=== PATIENT | female | born 1955 | race Caucasian/White ===

== ENCOUNTER 2023-01-17 07:15 | Outpatient (OUT) | payer BC, MEDICARE, SELFPAY ==
--- NOTE | 2023-01-17 07:29 | MM_ITS ---
Patient: DEV BACON Exam Date: 01/17/2023 : 1955 Gender:F Ordering : Non-Staff Physician Admission #: [id number] Family : Order #: [id number] CLICK HERE TO VIEW EXAM RADIOLOGY REPORT PROCEDURE: MM TOMOSYNTHESIS SCREENING BI COMPARISON: MG MAMM SCREEN MOOKIE W CAD, 08/31/2011. INDICATIONS: Screening Calculator Name NCI Breast Cancer Risk Assessment Tool 5 Year Breast Cancer Risk 1.60% Lifetime Breast Cancer Risk 6.20% Personal Breast Cancer No Personal Ovarian Cancer No Treatments None Family Cancers None LOCATION: [facility] BREAST COMPOSITION: Heterogeneously dense,which may obscure small masses. FINDINGS: DIAGNOSTIC CATEGORY 1--NEGATIVE. RIGHT BREAST: No significant suspicious finding. No significant change has occurred. LEFT BREAST: No significant suspicious finding. No significant change has occurred. RECOMMENDATIONS: ROUTINE MAMMOGRAM AND CLINICAL EVALUATION IN 12 MONTHS. PLEASE NOTE: A NORMAL MAMMOGRAM DOES NOT EXCLUDE THE POSSIBILITY OF BREAST CANCER. A CLINICALLY SUSPICIOUS PALPABLE LUMP SHOULD BE BIOPSIED. Dictated by: Dwight Pollard M.D. on 01/18/2023 at 14:59 Approved by: Dwight Pollard M.D. on 01/18/2023 at 15:02
--- NOTE | 2023-01-17 07:55 | XR_ITS ---
The [address] [address] Patient Name: DEV BACON MRN: [id number] date: 1955 Sex: F Assigned Patient Location: [facility] Current Patient Location: [facility] Accession/Order Number: [id number] Exam Date: 01/17/2023 07:45 Report Date: 01/17/2023 08:10 At the request of: NON-STAFF PHYSICIAN Procedure: XR DEXA axial skeleton EXAMINATION: XR DEXA axial skeleton HISTORY: Postmenopausal Z78.0 COMPARISON: No relevant comparison available. TECHNIQUE: Dual-energy X-ray absorptiometry (DXA) was performed. FINDINGS: SPINE ANALYSIS: Average bone mineral density is 1.161 g/cm2. T-score (standard deviation relative to young adult mean): -0.2 . HIP ANALYSIS: Lowest bone mineral density is within the right femoral neck, 0.798 g/cm2. T-score (standard deviation relative to young adult mean): -1.7 . XR/XR DEXA axial skeleton IMPRESSION: World Jesse Organization Classification: Osteopenia - Moderate Fracture Risk Electronically authenticated by: YAMIL GRUBBS Date: 01/17/2023 08:10
== END 2023-01-17 07:16 | disposition home or self-care (01) ==
LOC: MAMMO 07:24
DX: Z78.0 Asymptomatic menopausal state (principal); Z12.31 Encounter for screening mammogram for malignant neoplasm of breast; M85.851 Other specified disorders of bone density and structure, right thigh
CPT/HCPCS: 77063; 77067; 77080

== ENCOUNTER 2023-09-15 21:02 | Emergency (ER) | payer BC, MEDICARE, SELFPAY ==
[2023-09-15 21:04] VITALS: BP 121/83; PULSE 96; TEMP 36.7; O2SAT 98; BMI 34.3
--- NOTE | 2023-09-15 21:21 | ED_ITS ---
HPI - Nausea/Vomiting/Diarrhea General Chief complaint: Nausea/Vomiting/Diarrhea Stated complaint: vomiting Time Seen by Provider: 09/15/23 21:18 Source: patient Mode of arrival: walk-in History of Present Illness HPI Narrative: 68-year-old female presents for nausea vomiting and diarrhea which started this afternoon. No hematemesis or hematochezia. She has not had any known ill contacts. She has not had a fever. No complaints of cough or shortness of breath or chest pain. Related Data Home Medications ?Medication ?Instructions ?Recorded ?Confirmed albuterol sulfate 2.5 mg/3 mL 2.5 mg continuous nebulization Q6H 09/15/23 09/15/23 (0.083 %) solution for nebulization PRN shortness of breath or wheezing albuterol sulfate 90 mcg/actuation 1 puff inhalation Q6H PRN 09/15/23 09/15/23 aerosol inhaler shortness of breath or wheezing amlodipine 10 mg tablet 10 mg PO DAILY 09/15/23 09/15/23 ezetimibe 10 mg tablet 10 mg PO QPM 09/15/23 09/15/23 levothyroxine 88 mcg capsule 88 mcg PO QAM 09/15/23 09/15/23 lisinopril 40 mg tablet 40 mg PO DAILY 09/15/23 09/15/23 sertraline 100 mg tablet 100 mg PO DAILY 09/15/23 09/15/23 topiramate 50 mg tablet 50 mg PO DAILY 09/15/23 09/15/23 Previous Rx's ?Medication ?Instructions ?Recorded ondansetron 4 mg disintegrating 4 mg PO Q6H PRN nausea and 09/15/23 tablet vomiting #20 tabs Allergies Allergy/AdvReac Type Severity Reaction Status Date / Time amoxicillin Allergy Severe Verified 09/15/23 21:12 cephalexin [From Keflex] Allergy Severe Verified 09/15/23 21:12 diazepam [From Valium] Allergy Severe Verified 09/15/23 21:12 ibuprofen Allergy Severe Verified 09/15/23 21:12 levothyroxine Allergy Severe Verified 09/15/23 21:12 Penicillins Allergy Severe Verified 09/15/23 21:12 Review of Systems ROS Narrative A ten point review of systems is negative except as noted above. Exam Narrative Exam Narrative: Nurses note and vital signs reviewed and patient is not hypoxic. General: The patient appears uncomfortable and is in no respiratory distress. Skin: Warm, dry, no pallor noted. There is no rash noted. Head: Normocephalic, atraumatic Eye: Normal conjunctiva, no drainage Ears, Nose, Mouth, and Throat: oral mucosa is moist. Nares patent. Cardiovascular: Regular Rate and Rhythm Respiratory: Patient is in no distress, no accessory muscle use, lungs are clear to auscultation, no wheezing, rales or rhonchi Back: non-tender GI: Soft and nontender nondistended. No masses. Musculoskeletal: The patient has no evidence of calf tenderness, no pitting edema, symmetrical pulses noted bilaterally Neurological: A&O, normal speech Psychiatric: Cooperative Constitutional Vital Signs, click to edit/add: Last Vital Signs Temp 98.0 F 09/15/23 21:04 Pulse 96 H 09/15/23 21:04 Resp 18 09/15/23 21:04 BP 121/83 09/15/23 21:04 Pulse Ox 98 09/15/23 21:04 Course Vital Signs Vital signs: Vital Signs Temperature 98.0 F 09/15/23 21:04 Pulse Rate 96 H 09/15/23 21:04 Respiratory Rate 18 09/15/23 21:04 Blood Pressure 121/83 09/15/23 21:04 Pulse Oximetry 98 09/15/23 21:04 Temperature 98.0 F 09/15/23 21:04 Pulse Rate 96 H 09/15/23 21:04 Respiratory Rate 18 09/15/23 21:04 Blood Pressure 121/83 09/15/23 21:04 Pulse Oximetry 98 09/15/23 21:04 MDM - Nausea/Vomiting/Diarrhea MDM Narrative Medical decision making narrative: The patient is feeling improved with IV fluids and Zofran. Repeat abdominal examination at 11:15 PM shows no tenderness. She is tolerating p.o. liquids and is able to be discharged home. Treatment diagnosis and follow-up were discussed with the patient. Differential Diagnosis Differential diagnosis: Likely food poisoning, gastroenteritis and dehydration Lab Data Attestation: I reviewed the patient's lab results. Labs: Lab Results 09/15/23 Range/Units 21:30 WBC 17.4 H (4.0-11.0) 10^3/uL RBC 4.89 (4.20-5.40) 10^6/uL Hgb 15.5 (12.0-16.0) g/dL Hct 44.8 (36.0-48.0) % MCV 91.6 (81.0-99.0) fL MCH 31.7 (26.7-34.0) pg MCHC 34.6 (29.9-35.2) g/dL RDW 13.4 (11.0-15.0) % Plt Count 312 (150-450) 10^3/uL MPV 9.2 L (9.5-13.5) fL Seg Neuts % (Manual) 91.0 Lymphocytes % (Manual) 3.0 L (20.5-60.0) % Atypical Lymphs % (Man) 1.0 % Monocytes % (Manual) 4.0 (1.7-12.0) % Eosinophils % (Manual) 1.0 (0.9-7.0) % Basophils % (Manual) 0.0 L (0.2-2.0) % Neutrophils # (Manual) 15.83 H (1.4-6.5) 10^3/uL Lymphocytes # (Manual) 0.52 L (1.20-3.80) 10^3/uL Abs Atypical Lymphs Man 0.17 Monocytes # (Manual) 0.69 (0.30-0.80) 10^3/uL Eosinophils # (Manual) 0.17 (0.00-0.70) 10^3/uL Basophils # (Manual) 0.00 (0.00-0.10) 10^3/uL Sodium 141 (136-145) mmol/L Potassium 3.7 (3.5-5.1) mmol/L Chloride 105 (98-107) mmol/L Carbon Dioxide 24.1 (21.0-32.0) mmol/L Anion Gap 15.6 BUN 13.0 (7.0-18.0) mg/dL Creatinine 0.89 (0.55-1.02) mg/dL Est GFR ( Amer) >60 (>=60) Est GFR (Non-Af Amer) >60 (>=60) BUN/Creatinine Ratio 14.6 Glucose 180 H (74-106) mg/dL Calcium 9.0 (8.5-10.1) mg/dL Discharge Plan Discharge Stand Alone Forms: Portal Instructions Chief Complaint: Nausea/Vomiting/Diarrhea Clinical Impression: Nausea, vomiting, and diarrhea Patient Disposition: Home, Self-Care Time of Disposition Decision: 23:18 Condition: Good Mode of Transportation: Private Vehicle Prescriptions / Home Meds: New ondansetron 4 mg tablet,disintegrating 4 mg PO Q6H PRN (Reason: nausea and vomiting) Qty: 20 0RF No Action albuterol sulfate 2.5 mg /3 mL (0.083 %) solution for nebulization 2.5 mg continuous nebulization Q6H PRN (Reason: shortness of breath or wheezing) albuterol sulfate 90 mcg/actuation HFA aerosol inhaler 1 puff INHALATION Q6H PRN (Reason: shortness of breath or wheezing) amlodipine 10 mg tablet 10 mg PO DAILY ezetimibe 10 mg tablet 10 mg PO QPM levothyroxine 88 mcg capsule 88 mcg PO QAM lisinopril 40 mg tablet 40 mg PO DAILY sertraline 100 mg tablet 100 mg PO DAILY topiramate 50 mg tablet 50 mg PO DAILY Print Language: Spanish Instructions: Acute Nausea and Vomiting (ED), Acute Diarrhea (ED) Referrals: Erik Hills [Primary Care Provider] - 1 week
[2023-09-15] MEDS: 0.9 % SODIUM CHLORIDE 1,000 ML 1000 ML IV (21:37)
[2023-09-15] MEDS: ONDANSETRON PF 4 MG/2 ML VIAL IV ×2 (21:37→23:28)
[2023-09-15 21:38] LABS: Hematocrit 44.8 % (36.0-48.0); Hemoglobin 15.5 g/dL (12.0-16.0); Mean Corpuscular HGB Conc 34.6 g/dL (29.9-35.2); Mean Corpuscular Hemoglobin 31.7 pg (26.7-34.0); Mean Corpuscular Volume 91.6 fL (81.0-99.0); Mean Platelet Volume 9.2 fL (9.5-13.5); Platelet Count 312 10^3/uL (150-450); Red Blood Count 4.89 10^6/uL (4.20-5.40); Red Cell Distribution Width 13.4 % (11.0-15.0); White Blood Count 17.4 10^3/uL (4.0-11.0)
[2023-09-15 21:47] LABS: Anion Gap 15.6; BUN Creatinine Ratio 14.6; Carbon Dioxide 24.1 mmol/L (21.0-32.0); Chloride 105 mmol/L (98-107); Estimated GFR (African America >60 (>=60); Estimated GFR (Non-African Ame >60 (>=60); Glucose 180 mg/dL (74-106); Potassium 3.7 mmol/L (3.5-5.1); Sodium 141 mmol/L (136-145)
[2023-09-15 22:03] LABS: Atypical Lymphocytes Abs Man 0.17; Eosinophils Absolute Manual 0.17 10^3/uL (0.00-0.70); Lymphocytes Absolute Manual 0.52 10^3/uL (1.20-3.80); Monocytes Absolute Manual 0.69 10^3/uL (0.30-0.80); Segmented Neut Absolute Manual 15.83 10^3/uL (1.4-6.5)
[2023-09-15 23:33] VITALS: BP 136/78; PULSE 78; TEMP 36.7; O2SAT 95
== END 2023-09-15 23:41 | disposition home or self-care (01) ==
PROVIDERS: Emergency Provider Emergency Medicine
DX: R11.2 Nausea with vomiting, unspecified (principal); R19.7 Diarrhea, unspecified; Z79.899 Other long term (current) drug therapy; Z79.890 Hormone replacement therapy
CPT/HCPCS: 36415; 80048; 85007; 85027; 96361; 96374; 96376; 99284

== ENCOUNTER 2023-09-16 16:56 | Emergency (ER) | payer BC, MEDICARE, SELFPAY ==
[2023-09-16 17:06] VITALS: BP 169/86; PULSE 71; TEMP 37.1; O2SAT 97; BMI 34.3
== END 2023-09-16 18:01 | disposition left against medical advice (07) ==
LOC: ER 17:04
PROVIDERS: Emergency Provider Emergency Medicine
DX: Z53.21 Procedure and treatment not carried out due to patient leaving prior to being seen by health care provider (principal)
CPT/HCPCS: 80053; 83605; 83690; 99284

== ENCOUNTER 2024-01-26 11:51 | Emergency (ER) | payer BC, MEDICARE, SELFPAY ==
[2024-01-26 11:54] VITALS: BP 163/81; PULSE 71; TEMP 36.6; O2SAT 95; BMI 34.0
--- NOTE | 2024-01-26 12:09 | CT_ITS ---
The [address] [address] Patient Name: DEV BACON MRN: [id number] date: 1955 Sex: F Assigned Patient Location: ER Current Patient Location: Accession/Order Number: [id number] Exam Date: 01/26/2024 12:35 Report Date: 01/26/2024 14:07 At the request of: ARLYN MENENDEZ Procedure: CT abdomen pelvis wo con EXAM: CT abdomen pelvis wo con , 01/26/2024 HISTORY: rt flank pain COMPARISON: None. TECHNIQUE: Noncontrast CT scan of the abdomen and pelvis was performed. Coronal and sagittal reconstructions were performed. Dose reduction techniques were achieved by using automated exposure control and/or adjustment of mA and/or kV according to patient size and/or use of iterative reconstruction technique. FINDINGS: Large calculus seen in the right renal pelvis measuring 1.8 x 1.6 cm. No significant dilatation of the right kidney. Another nonobstructing calculus in the mid right kidney measuring 7 mm. The left kidney and ureter demonstrate no stone or dilatation. Urinary bladder is nondistended. Small amount of air bubbles in the urinary bladder could be due to recent catheterization or procedure. Recommend clinical correlation. The liver, spleen, pancreas and both adrenal glands are unremarkable. Postcholecystectomy. No biliary dilatation. No enlarged lymph node in the abdomen, retroperitoneum or the pelvis. Mild atherosclerotic calcification of the abdominal aorta. Unremarkable IVC. Small ventral upper abdominal wall hernia containing predominantly fatty tissue. No bowel loop dilatation or bowel wall thickening. Mild sigmoid diverticulosis without diverticulitis. Post appendectomy. No free fluid in the peritoneal cavity. The uterus and adnexa are unremarkable. Small left inguinal hernia containing fatty tissue. The bone windows demonstrate no acute osseous findings. Scans through the lung bases show mild dependent atelectasis. CT/CT abdomen pelvis wo con IMPRESSION: 1. Large calculus in the right renal pelvis measuring 1.8 x 1.6 cm. 2. Postcholecystectomy and appendix. 3. Sigmoid diverticulosis without diverticulitis. Electronically authenticated by: MASSIMO BAPTISTE Date: 01/26/2024 14:07
--- NOTE | 2024-01-26 12:15 | ECG_ITS ---
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
[2024-01-26] MEDS: 0.9 % SODIUM CHLORIDE 1,000 ML 1000 ML IV (12:23)
[2024-01-26 12:38] LABS: Basophils Absolute Auto 0.1 10^3/uL (0.0-0.1); Basophils Percent Auto 0.5 % (0.2-2.0); Eosinophils Absolute Auto 0.4 10^3/uL (0.0-0.7); Eosinophils Percent Auto 4.6 % (0.9-7.0); Hematocrit 44.6 % (36.0-48.0); Hemoglobin 15.3 g/dL (12.0-16.0); Immature Granulocytes Abs Auto 0.04 10^3/uL (0.00-0.03); Immature Granulocytes Pct Auto 0.4 % (0.0-0.5); Lymphocytes Absolute Auto 2.8 10^3/uL (1.2-3.8); Lymphocytes Percent Auto 28.8 % (20.5-60.0); Mean Corpuscular HGB Conc 34.3 g/dL (29.9-35.2); Mean Corpuscular Hemoglobin 31.4 pg (26.7-34.0); Mean Corpuscular Volume 91.6 fL (81.0-99.0); Mean Platelet Volume 9.5 fL (9.5-13.5); Monocytes Absolute Auto 0.7 10^3/uL (0.3-0.8); Monocytes Percent Auto 7.1 % (1.7-12.0); Neutrophils Absolute Auto 5.6 10^3/uL (1.4-6.5); Neutrophils Percent Auto 58.6 % (43.0-75.0); Platelet Count 307 10^3/uL (150-450); Red Blood Count 4.87 10^6/uL (4.20-5.40); Red Cell Distribution Width 13.4 % (11.0-15.0); White Blood Count 9.6 10^3/uL (4.0-11.0)
[2024-01-26 12:38] LABS: Bilirubin Urine NEGATIVE (NEGATIVE); Blood Urine SMALL (NEGATIVE); Clarity Urine CLEAR (CLEAR); Color Urine LT. YELLOW (YELLOW); Glucose Urine UA NEGATIVE (NEGATIVE); Ketones Urine NEGATIVE (NEGATIVE); Leukocyte Esterase Urine MODERATE (NEGATIVE); Nitrite Urine POSITIVE (NEGATIVE); Protein Urine NEGATIVE (NEG/TRACE); Specific Gravity Urine 1.015 (1.005-1.025); Urobilinogen Urine 0.2 EU/dL (0.2-1.0); pH Urine 6.5 (5.0-9.0)
[2024-01-26 12:45] LABS: Urine Microscopic Indicated YES
[2024-01-26 12:49] LABS: Bacteria Urine LARGE #/HPF (NONE SEEN); Mucus Urine TRACE (NONE SEEN); Squamous Epithelial Cell Urine MODERATE #/LPF (NONE/RARE)
[2024-01-26 12:50] LABS: Cast Seen? NONE SEEN #/LPF (NONE SEEN); Crystals Seen? None Seen #/HPF (None Seen); Urine Culture Indicated YES
[2024-01-26 12:52] LABS: Alanine Aminotransferase 30 U/L (14-59); Albumin Globulin Ratio 1.1; Albumin Level 3.8 g/dL (3.4-5.0); Alkaline Phosphatase 79 U/L (46-116); Anion Gap 11.3; Aspartate Amino Transferase 17 U/L (15-37); BUN Creatinine Ratio 22.4; Bilirubin Total 0.6 mg/dL (0.2-1.0); Calcium 9.2 mg/dL (8.5-10.1); Carbon Dioxide 26.3 mmol/L (21.0-32.0); Chloride 103 mmol/L (98-107); Estimated GFR (African America >60 (>=60); Estimated GFR (Non-African Ame >60 (>=60); Globulin 3.5 g/dL; Glucose 129 mg/dL (74-106); Potassium 3.6 mmol/L (3.5-5.1); Sodium 137 mmol/L (136-145); Total Protein 7.3 g/dL (6.4-8.2)
[2024-01-26 12:54] LABS: Troponin I High Sensitivity 4.3 pg/mL (4.0-51.3)
--- NOTE | 2024-01-26 13:33 | ED.BACK1 ---
HPI HPI - Back Pain/Injury General Chief Complaint: Back Pain/Injury Stated Complaint: RIGHT FLANK PAIN, TENDERNESS Time Seen by Provider: 01/26/24 12:08 Source: patient Mode of arrival: walk-in Limitations: no limitations History of Present Illness HPI Narrative: The patient mentioned that she does have a history of kidney stone but she started having this right flank pain almost a week ago after she was given a hug from a friend, the patient noticed that she does see some hematuria sometimes but she have this constant right flank pain associated with nausea, no fever no chills no coughing no difficulty breathing and no chest pain The patient also denies any other complaints of radiation of the pain or any severe pain as she mentioned that her pain is tolerated and she does not want to take anything for it Related Data Home Medications ?Medication ?Instructions ?Recorded ?Confirmed albuterol sulfate 2.5 mg/3 mL 2.5 mg continuous nebulization Q6H 09/15/23 09/15/23 (0.083 %) solution for nebulization PRN shortness of breath or wheezing albuterol sulfate 90 mcg/actuation 1 puff inhalation Q6H PRN 09/15/23 09/15/23 aerosol inhaler shortness of breath or wheezing amlodipine 10 mg tablet 10 mg PO DAILY 09/15/23 09/15/23 ezetimibe 10 mg tablet 10 mg PO QPM 09/15/23 09/15/23 levothyroxine 88 mcg capsule 88 mcg PO QAM 09/15/23 09/15/23 lisinopril 40 mg tablet 40 mg PO DAILY 09/15/23 09/15/23 sertraline 100 mg tablet 100 mg PO DAILY 09/15/23 09/15/23 topiramate 50 mg tablet 50 mg PO DAILY 09/15/23 09/15/23 Previous Rx's ?Medication ?Instructions ?Recorded ondansetron 4 mg disintegrating 4 mg PO Q6H PRN nausea and 09/15/23 tablet vomiting #20 tabs ciprofloxacin HCl 500 mg tablet 500 mg PO BID #14 tabs 01/26/24 Allergies Allergy/AdvReac Type Severity Reaction Status Date / Time amoxicillin Allergy Severe Rash Verified 01/26/24 12:00 cephalexin [From Keflex] Allergy Severe Rash Verified 01/26/24 12:00 ibuprofen Allergy Severe Rash Verified 01/26/24 12:00 levothyroxine Allergy Severe Rash Verified 01/26/24 12:00 Penicillins Allergy Severe Rash Verified 01/26/24 12:00 diazepam [From Valium] Allergy Unknown Rash Verified 01/26/24 12:00 Iodinated Contrast Media AdvReac Anaphylaxis Verified 01/26/24 12:00 Opioid HPI Opioid Management Most Recent Opioid Data: Last Pain Scale 7 09/15/23 22:18 Review of Systems ROS Status of ROS 10 or more systems reviewed and unremarkable except as noted in history and below Exam Narrative Exam Narrative: Nurses notes and vital signs reviewed and patient is not hypoxic. General: Well-appearing and in no apparent distress. Skin: Warm, dry, no pallor noted. No rash. Head: Normocephalic, atraumatic. Neck: Supple, non-tender. Eye: Pupils are equal, round and EOMI. No scleral icterus. Ears, Nose, Mouth, and Throat: TM are clear, no nasal mucosal hypertrophy. Oral mucosa is moist, no posterior oropharynx erythema, uvula is mid-line Cardiovascular: Regular Rate and Rhythm without murmur, gallop or rub. Respiratory: No accessory muscle use or respiratory distress. Lungs are clear to auscultation, no wheezing, rales or rhonchi Chest Wall: no tenderness Back: No midline thoracic or lumbar vertebral tenderness. Right CVA tenderness Musculoskeletal: normal ROM, no calf or popliteal tenderness, no lower extremity edema/swelling GI: Abdomen is soft, non-distended. Normal bowel sounds. No masses appreciated. No tenderness to palpation. No rebound, guarding, or rigidity noted. Neurological: A&O x4. No cranial nerve dysfunction observed. No truncal ataxia. Moves all extremities. Sensation intact. Psychiatric: Cooperative and interactive. Normal mood and affect. Constitutional Vital Signs, click to edit/add: Last Vital Signs Temp 98 F 01/26/24 11:54 Pulse 71 01/26/24 11:54 Resp 16 01/26/24 11:54 BP 163/81 H 01/26/24 11:54 Pulse Ox 95 01/26/24 11:54 O2 Del Method Room Air 01/26/24 11:54 Course Vital Signs Vital signs: Vital Signs Temperature 98 F 01/26/24 11:54 Pulse Rate 71 01/26/24 11:54 Respiratory Rate 16 01/26/24 11:54 Blood Pressure 163/81 H 01/26/24 11:54 Pulse Oximetry 95 01/26/24 11:54 Oxygen Delivery Method Room Air 01/26/24 11:54 Temperature 98 F 01/26/24 11:54 Pulse Rate 71 01/26/24 11:54 Respiratory Rate 16 01/26/24 11:54 Blood Pressure 163/81 H 01/26/24 11:54 Pulse Oximetry 95 01/26/24 11:54 Oxygen Delivery Method Room Air 01/26/24 11:54 MDM - Back Pain/Injury MDM Narrative Medical decision making narrative: EKG showing sinus rhythm with a heart rate of [address] elevation or depression CBC and chemistry showed no acute pathology with the patient urine is positive for urine infection CAT scan shows a 1.8 cm kidney stone with no hydronephrosis Patient case discussed with Dr. Carson in urology service and right now the patient be discharged on ciprofloxacin to follow-up with her as outpatient The patient is to follow up with primary care physician in next 2-3 days or to return to the emergency department should any of the signs or symptoms worsen or new symptoms develop. The patient agrees with the following Diagnosis and Treatment plan and the patient will be discharged home. Lab Data Labs: Lab Results 01/26/24 01/26/24 Range/Units 11:59 12:29 WBC 9.6 (4.0-11.0) 10^3/uL RBC 4.87 (4.20-5.40) 10^6/uL Hgb 15.3 (12.0-16.0) g/dL Hct 44.6 (36.0-48.0) % MCV 91.6 (81.0-99.0) fL MCH 31.4 (26.7-34.0) pg MCHC 34.3 (29.9-35.2) g/dL RDW 13.4 (11.0-15.0) % Plt Count 307 (150-450) 10^3/uL MPV 9.5 (9.5-13.5) fL Neut % (Auto) 58.6 (43.0-75.0) % Lymph % (Auto) 28.8 (20.5-60.0) % [place] % (Auto) 7.1 (1.7-12.0) % Eos % (Auto) 4.6 (0.9-7.0) % Baso % (Auto) 0.5 (0.2-2.0) % Neut # (Auto) 5.6 (1.4-6.5) 10^3/uL Lymph # (Auto) 2.8 (1.2-3.8) 10^3/uL [place] # (Auto) 0.7 (0.3-0.8) 10^3/uL Eos # (Auto) 0.4 (0.0-0.7) 10^3/uL Baso # (Auto) 0.1 (0.0-0.1) 10^3/uL Abs Immat Gran (auto) 0.04 H (0.00-0.03) 10^3/uL Imm/Tot Granulo (auto) 0.4 (0.0-0.5) % Sodium 137 (136-145) mmol/L Potassium 3.6 (3.5-5.1) mmol/L Chloride 103 (98-107) mmol/L Carbon Dioxide 26.3 (21.0-32.0) mmol/L Anion Gap 11.3 BUN 19.0 H (7.0-18.0) mg/dL Creatinine 0.85 (0.55-1.02) mg/dL Est GFR ( Amer) >60 (>=60) Est GFR (Non-Af Amer) >60 (>=60) BUN/Creatinine Ratio 22.4 Glucose 129 H (74-106) mg/dL Calcium 9.2 (8.5-10.1) mg/dL Total Bilirubin 0.6 (0.2-1.0) mg/dL AST 17 (15-37) U/L ALT 30 (14-59) U/L Alkaline Phosphatase 79 (46-116) U/L Troponin I High Sens 4.3 (4.0-51.3) pg/mL Total Protein 7.3 (6.4-8.2) g/dL Albumin 3.8 (3.4-5.0) g/dL Globulin 3.5 g/dL Albumin/Globulin Ratio 1.1 Urine Color Lt. yellow (YELLOW) Urine Clarity Clear (CLEAR) Urine pH 6.5 (5.0-9.0) Ur Specific [place] 1.015 (1.005-1.025) Urine Protein Negative (NEG/TRACE) mg/dL Urine Glucose (UA) Negative (NEGATIVE) mg/dL Urine Ketones Negative (NEGATIVE) mg/dL Urine Occult Blood Small A (NEGATIVE) Urine Nitrite Positive A (NEGATIVE) Urine Bilirubin Negative (NEGATIVE) Urine Urobilinogen 0.2 (0.2-1.0) EU/dL Ur Leukocyte Esterase Moderate A (NEGATIVE) Urine RBC 5-10 A (0-2) #/HPF Urine WBC 10-20 A (NONE SEEN) #/HPF Ur Squamous Epith Cells Moderate A (NONE/RARE) #/LPF Urine Crystals None seen (None Seen) #/HPF Urine Bacteria Large A (NONE SEEN) #/HPF Urine Casts None seen (NONE SEEN) #/LPF Urine Mucus Trace A (NONE SEEN) Ur Culture Indicated? Yes Discharge Plan Discharge Stand Alone Forms: Portal Instructions Chief Complaint: Back Pain/Injury Clinical Impression: Acute UTI, Kidney calculi Patient Disposition: Home, Self-Care Time of Disposition Decision: 14:23 Condition: Good Prescriptions / Home Meds: New ciprofloxacin HCl 500 mg tablet 500 mg PO BID Qty: 14 0RF No Action albuterol sulfate 2.5 mg /3 mL (0.083 %) solution for nebulization 2.5 mg continuous nebulization Q6H PRN (Reason: shortness of breath or wheezing) albuterol sulfate 90 mcg/actuation HFA aerosol inhaler 1 puff INHALATION Q6H PRN (Reason: shortness of breath or wheezing) amlodipine 10 mg tablet 10 mg PO DAILY ezetimibe 10 mg tablet 10 mg PO QPM levothyroxine 88 mcg capsule 88 mcg PO QAM lisinopril 40 mg tablet 40 mg PO DAILY sertraline 100 mg tablet 100 mg PO DAILY topiramate 50 mg tablet 50 mg PO DAILY ondansetron 4 mg tablet,disintegrating 4 mg PO Q6H PRN (Reason: nausea and vomiting) Qty: 20 0RF Print Language: [place] Instructions: Kidney Stones (ED), Urinary Tract Infection in Older Adults (ED) Referrals: Tayla Carson MD [Physician] - 1 week Erik Hills [Primary Care Provider] - 1 week
[2024-01-26] MEDS: CIPROFLOXACIN HCL 500 MG TABLET PO (14:31)
== END 2024-01-26 14:36 | disposition home or self-care (01) ==
PROVIDERS: Emergency Provider Emergency Medicine
DX: N39.0 Urinary tract infection, site not specified (principal); N20.0 Calculus of kidney
CPT/HCPCS: 36415; 74176; 80053; 81001; 84484; 85025; 87086; 87150; 87186; 93005; 99285

== ENCOUNTER 2024-02-15 10:12 | Outpatient (OUT) | payer BC, MEDICARE, SELFPAY ==
--- NOTE | 2024-02-15 10:33 | XR_ITS ---
The [address] [address] Patient Name: DEV BACON MRN: [id number] date: 1955 Sex: F Assigned Patient Location: [facility] Current Patient Location: Accession/Order Number: [id number] Exam Date: 02/15/2024 10:36 Report Date: 02/19/2024 06:46 At the request of: RILEY ATKINS Procedure: XR abdomen 1V EXAMINATION: XR abdomen 1V HISTORY: Kidney Stone N20.0 COMPARISON: No relevant comparison available. FINDINGS: KIDNEY/URETER - RIGHT: 18 mm stone within right renal pelvis. 7 mm stone within mid body. KIDNEY/URETER - LEFT: No visible renal or ureteral calcifications. PELVIS: No visible ureteral stones. Stable pelvic calcifications compatible with phleboliths. BOWEL: No abnormal dilation or deviation. BONES: No acute abnormality. OTHER: Negative. No abnormal gaseous collections. XR/XR abdomen 1V IMPRESSION: 1. Stable right nephrolithiasis. Electronically authenticated by: YAMIL GRUBBS Date: 02/19/2024 06:46
--- OUTSIDE RECORDS SUMMARY | 2024-02-15 10:40 | XMS_ITS | CCD ---
Author Organization [facility] Inform ion Partnership [facility] Care Team Providers Care Head Mixer Name Role Phone DR CECIL KNOX Attending Unavailable DR CECIL KNOX Consulting Unavailable DR CECIL KNOX Admitting Unavailable Kylah Galeana Unavailable Singh HARRIS Attending Unavailable Tayla Carson Attending Unavailable Allergies Allergy Classification Reported Allergen(s) Allergy Type Date of Onset Reaction(s) Facility (2 sources) Cephalexin Drug Allergy itching on her head [facility] CRV Other (4 sources) diazePAM Drug Allergy 08-08-19 24 [facility] (2 sources) levothyroxine Drug Allergy rash [facility] CRV Other (4 sources) Penicillin G Drug Allergy 08-08-19 24 hiv, SOB [facility] (4 sources) dye for testing Propensity to adverse reactions 07-16-19 24 anaphylaxis [facility] (2 sources) Cephalexin Drug Allergy 08-08-19 24 itching on her head [facility] (2 sources) levothyroxine Drug Allergy 08-08-19 24 rash [facility] Medications Current Medications Medication Drug Class(es) Dates Sig (Normalized) Sig (Original) [id number] actuat albuterol 0.09 mg/actuat metered dose inhaler (1 source) beta2-Adrenergic Agonist Start: 07-16-2023 take 2 puff(s) by inhalation four times daily as needed Albuterol Sulfate HFA 108 (90 Base) MCG/ACT 2 puffs Inhalation 4 times a day prn Jun, Active amLODIPine (3 sources) Dihydropyridine Calcium Channel Jennie Start: 08-08-2023 Amlodipine Active MG PO August 08, 2023 1:00am Start: 08-08-2023 Amlodipine Act zamzam MG PO August 08, 2023 12:00am take 1 tablet by mann th once daily amLODIPine Besylate 10 MG take 1 tablet by mouth once daily Oral for 90 Days Active benzonatate 200 mg oral capsule (1 source) Non-narcotic Antitussive Start: 07-16-2023 take 1 capsule by mouth every eight hours Benzonatate 200 MG 1 capsule Orally Three times a day Jun, Active ezetimibe 10 mg oral tablet (3 sources) Dietary Cholesterol Absorption Inhibitor Start: 08-08-2023 Ezetimibe Active MG PO August 08, 2023 1:00am take 1 tablet by mnan th once daily at bedtime Ezetimibe 10 MG take 1 tablet by mouth once daily at bedtime Oral for 30 Days Active levothyroxine (3 sources) l-Thyroxine Start: 08-08-2023 Levothyroxine Active MCG PO August 08, 2023 1:00am Start: 08-08-2023 Levothyroxine Active MCG PO August 08, 2023 12:00am Levothyroxine So dium 88 MCG Oral for 30 Days Active Lisinopril (2 sources) Angiotensin Converting Enzyme Inhibitor Start: 08-08-2023 Lisinopril Active MG PO August 08, 2023 1:00am Start: 08-08-2023 Lisinopril Act zamzam MG PO August 08, 2023 12:00am methylPREDNISolone 4 mg oral tablet (3 sources) Corticosteroid Start: 08-08-2023 End: 09-03-2023 take 1 tablet by mouth once Methylprednisolone (Medrol (Skyler)) 4 mg tablets,dose pack Active 0 PO per package directions September 03, 2023 12:00am PO PER PKG DIR predniSONE 20 mg oral tablet (3 sources) Start: 05-03-2022 take 1 tablet by mouth every twelve hours predniSONE 20 MG 1 tablet Orally bid for 5 day(s) Jun, Active sertraline 100 mg oral tablet (2 sources) Serotonin Reuptake Inhibitor Start: 08-08-2023 Sertraline Active MG PO August 08, 2023 1:00am topiramate 50 mg oral tablet (1 source) Start: 09-03-2023 Topiramate Active MG PO September 03, 2023 12:00am Completed/Discontinued Medications Medication Drug Class(es) Dates Sig (Normalized) Sig (Original) doxycycline hyclate 100 mg oral tablet (2 sources) Tetracycline-class Drug Start: 05-03-2022 take 1 tablet by mouth every twelve hours Doxycycline Hyclate 100 MG 1 tablet Orally Twice a day for 10 day(s) Apr, Not-Taking/PRN fluticasone propionate 0.05 mg/actuat metered dose nasal spray (2 sources) Corticosteroid Start: 05-03-2022 take 2 spray(s) nasal route once daily as needed Fluticasone Propionate 50 MCG/ACT 2 sprays Nasally Once a day for 14 day(s) Apr, Not-Taking/PRN Start: 05-03-2022 take 2 spray(s) nasa l route once daily Fluticasone Propionate 50 MCG/ACT 2 sprays Nasally Once a day for 14 day(s) Apr, Active Problems Active Problems Problem Classification Problem Date Documented Da te Episodic/Chronic Asthma (2 sources) Exacerbation of mild persistent asthma; Translations: [Mild persistent asthma with (acute) exacerbation] Chronic Chronic obstructive pulmonary disease and bronchiectasis (1 source) Bronchitis, not specified as acute or chronic Episodic Immunizations and screening for infectious disease (5 sources) Contact with or exposure to other viral diseases; Translations: [Contact with or suspected exposure to severe acute respiratory syndrome coronavirus 2] 08-08-2023 Episodic Other lower respiratory disease (1 source) Personal history of other diseases of the respiratory system Episodic Other upper respiratory infections (5 sources) Acute sinusitis, unspecified; Translations: [Acute pharyngitis, unspecified] Episodic Otitis media and related conditions (1 source) Otitis media, unspecified, left ear Episodic Unclassified (2 sources) CONTACT W/AND (SUSP) EXPOS COVID-19; Translations: [CONTACT W/AND (SUSP) EXPOS COVID-19] Onset: 06-23-2021 Unclassified (1 source) COUGH, UNSPECIFIED; Translations: [COUGH, UNSPECIFIED] Onset: 06-23-2021 Viral infection (4 sources) Disease caused by 2019-nCoV; Translations: [COVID-19] 08-08-2023 Episodic Viral infection (1 source) COVID-19; Translations: [COVID-19] Onset: 06-23-2021 Past or Other Problems Problem Classification Problem Date Documented Da te Episodic/Chronic Unclassified (1 source) CONTACT W/AND (SUSP) EXPOS COVID-19; Translations: [CONTACT W/AND (SUSP) EXPOS COVID-19] Onset: 06-17-2021 Unclassified (1 source) Contact with and (suspected) exposure to covid-19 Z20.822 Results Test Name Value Interpretation Reference Range Facility No Panel InformationOrdered By: Kylah Galeana on 08-08-2023 COVID/Influenza Antigen (POC) [facility] COVID/Influenza Antigen (POC) [facility] COVID + FLU Quick Testingon 07-13-2023 SARS-CoV-2 (COVID-19) RNA ZAINAB+probe Ql (Unsp spec) negativ [facility]Scale [facility] CRV Other COVID + FLU Quick Testing Negative [facility] Other Quick Strepon 07-13-2023 S. pyogenes Org specific cx Ql (Throat) Negative [facility] Other Quick Strep [facility] Other Consenton 04-20-2023 Consent [id number] Normal [facility] Registrationon 04-20-2023 Registration [id number]#[id number] Normal [facility] Glucose Tolerance Test 2 [place] [address] 10-11-2021 FGLU 104 mg/dL High 65-99 [facility] Engineering Agent Comment on above: Result Comment: Acco rding to ADA: Fasting Glucoe Normal 65-99 mg/dl Prediabetes 100-125 mg/dl Diabetes >/= 126 Performed By: #### G TT2H FE Prof #### [facility] [address], [place] [id number] GLU1H 215 mg/dL Normal [facility] Comment on above: Performed By: #### G TT2Cee FE Prof #### [facility] [address] [id number] GLU2H 200 mg/dL Normal [facility] Comment on above: Performed By: #### G BAR2Cee FE Prof #### [facility] [address], [place] [id number] Hemoglobin A1Con 10-11-2021 EAG 93.93 Normal [facility] Comment on above: Performed By: #### A 1C #### [facility] [address], [place] [id number] HbA1c (Bld) [Mass fraction] 4.9 % Normal 4.0-6.0 [facility] Comment on above: Performed By: #### A 1C #### [facility] [address], [place] [id number] Iron Profileon 10-11-2021 %FESAT 31 % Normal 11-50 [facility] Comment on above: Performed By: #### G TT2H, FE Prof #### [facility] [address], [place] [id number] FE 76 ug/dL Normal 40-190 [facility] Agent Comment on above: Result Comment: Refe rence range change 05/04/2017. Prior reference range F 37-145 ug/dL, M 59-158 ug/dL. Performed By: #### G TT2H, FE Prof #### [facility] [address], [place] [id number] TIBC 249 ug/dL Low 250-450 [facility] Comment on above: Performed By: #### G TT2H, FE Prof #### [facility] [address], [place] [id number] UIBC 173 ug/dL Normal 112-347 [facility] Agent Comment on above: Performed By: #### G TT2H, FE Prof #### [facility] [address], [place] [id number] Complete Blood Count with Au to Diffon 07-20-2021 Basophils (Bld) [#/Vol] 0.02 10*3/uL Normal 0.00-0.20 [facility] Comment on above: Performed By: #### F ERR, CBCAD, LIPD, CMP #### [facility] [address], [place] [id number] Basophils/100 WBC (Bld) 0.3 % Normal [facility] Agent Comment on above: Performed By: #### F ERR, CBCAD, LIPD, CMP #### [facility] [address], [place] [id number] Eosinophils (Bld) [#/Vol] 0.30 10*3/uL Normal 0.02-0.50 [facility] Comment on above: Performed By: #### F ERR, CBCAD, LIPD, CMP #### [facility] [address], [place] [id number] Eosinophils/100 WBC (Bld) 4.2 % Normal [facility] Agent Comment on above: Performed By: #### F ERR, CBCAD, LIPD, CMP #### [facility] [address], [place] [id number] Erythrocyte distribution width (RBC) [Ratio] 13.7 % Normal 11.0-15.0 [facility] Agent Comment on above: Performed By: #### F ERR, CBCAD, LIPD, CMP #### [facility] [address], [place] [id number] Hematocrit (Bld) [Volume fraction] 39.0 % Normal 35.0-47.0 [facility] Agent Comment on above: Performed By: #### F ERR, CBCAD, LIPD, CMP #### [facility] [address], [place] [id number] Hemoglobin (Bld) [Mass/Vol] 13.3 g/dL Normal 11.6-15.5 [facility] Agent Comment on above: Performed By: #### F ERR, CBCAD, LIPD, CMP #### [facility] [address], [place] [id number] Lymphocytes (Bld) [#/Vol] 3.0 10*3/uL Normal 0.9-3.9 [facility] Agent Comment on above: Performed By: #### F ERR, CBCAD, LIPD, CMP #### [facility] [address], [place] [id number] Lymphocytes/100 WBC (Bld) 42.1 % Normal [facility] Agent Comment on above: Performed By: #### F ERR, CBCAD, LIPD, CMP #### [facility] [address], [place] [id number] MCH (RBC) [Entitic mass] 31.0 pg Normal 27.0-33.0 [facility] Comment on above: Performed By: #### F ERR, CBCAD, LIPD, CMP #### [facility] [address], [place] [id number] MCHC (RBC) [Mass/Vol] 34.1 g/dL Normal 32.0-36.0 [facility] Comment on above: Performed By: #### F ERR, CBCAD, LIPD, CMP #### [facility] [address], [place] [id number] MCV (RBC) [Entitic vol] 91 fL Normal 80-100 [facility] Comment on above: Performed By: #### F ERR, CBCAD, LIPD, CMP #### [facility] [address], [place] [id number] Monocytes (Bld) [#/Vol] 0.5 10*3/uL Normal 0.2-0.9 [facility] Comment on above: Performed By: #### F ERR, CBCAD, LIPD, CMP #### [facility] [address], [place] [id number] Monocytes/100 WBC (Bld) 7.6 % Normal [facility] Comment on above: Performed By: #### F ERR, CBCAD, LIPD, CMP #### [facility] [address], [place] [id number] Neutrophils (Bld) [#/Vol] 3.2 10*3/uL Normal 1.5-7.8 [facility] Comment on above: Performed By: #### F ERR, CBCAD, LIPD, CMP #### [facility] [address], [place] [id number] Neutrophils/100 WBC (Bld) 45.1 % Normal [facility] Comment on above: Performed By: #### F ERR, CBCAD, LIPD, CMP #### [facility] [address], [place] [id number] Platelet mean volume (Bld) [Entitic vol] 9.30 fL Normal 7.50-12.50 [facility] Comment on above: Performed By: #### F ERR, CBCAD, LIPD, CMP #### [facility] [address], [place] [id number] Platelets (Bld) [#/Vol] 256 10*3/uL Normal 140-400 [facility] Comment on above: Performed By: #### F ERR, CBCAD, LIPD, CMP #### [facility] [address], [place] [id number] RBC (Bld) [#/Vol] 4.29 10*6/uL Normal 3.90-5.20 [facility] Comment on above: Performed By: #### F ERR, CBCAD, LIPD, CMP #### [facility] [address], [place] [id number] RDW-SD 44.8 fL Normal 37.0-50.0 [facility] Comment on above: Performed By: #### F ERR, CBCAD, LIPD, CMP #### [facility] [address], [place] [id number] WBC (Bld) [#/Vol] 7.1 10*3/uL Normal 3.8-11.0 [facility] Specialist Comment on above: Performed By: #### F ERR, CBCAD, LIPD, CMP #### [facility] [address], [place] [id number] Comprehensive Metabolic Pane [facility] 07-20-2021 Albumin [Mass/Vol] 4.1 g/dL Normal 3.6-5.1 [facility] Engineering Agent Comment on above: Performed By: #### F ERR, CBCAD, LIPD, CMP #### [facility] [address], [place] [id number] Albumin/Globulin [Mass ratio] 2.0 {ratio} Normal 1.0-2.5 [facility] Comment on above: Performed By: #### F ERR, CBCAD, LIPD, CMP #### [facility] [address], [place] [id number] ALP [Catalytic activity/Vol] 62 U/L Normal 35-119 [facility] Comment on above: Performed By: #### F ERR, CBCAD, LIPD, CMP #### [facility] [address] [place], [place] [id number] ALT [Catalytic activity/Vol] 22 U/L Normal 6-33 [facility] Comment on above: Result Comment: 05/18 Female reference range changed. Performed By: #### F ERR, CBCAD, LIPD, CMP #### [facility] [address], [place] [id number] Anion gap [Moles/Vol] 16 mmol/L Normal 12-20 [facility] Comment on above: Result Comment: Effe ctive 06/23/2019 reference range changed. Performed By: #### F ERR, CBCAD, LIPD, CMP #### [facility] [address], [place] [id number] AST [Catalytic activity/Vol] 16 U/L Normal 9-34 [facility] Comment on above: Performed By: #### F ERR, CBCAD, LIPD, CMP #### [facility] [address], [place] [id number] Bilirubin [Mass/Vol] 0.41 mg/dL Normal 0.30-1.20 [facility] Comment on above: Performed By: #### F ERR, CBCAD, LIPD, CMP #### [facility] [address], [place] [id number] BUN/CREA 20 Ratio Normal 6-22 [facility] Comment on above: Performed By: #### F ERR, CBCAD, LIPD, CMP #### [facility] [address], [place] [id number] Calcium [Mass/Vol] 9.2 mg/dL Normal 8.6-10.2 [facility] Comment on above: Performed By: #### F ERR, CBCAD, LIPD, CMP #### [facility] [address], [place] [id number] Chloride [Moles/Vol] 108 mmol/L High 98-107 [facility] Comment on above: Performed By: #### F ERR, CBCAD, LIPD, CMP #### [facility] [address], [place] [id number] CO2 [Moles/Vol] 21 mmol/L Normal 20-31 [facility] Comment on above: Performed By: #### F ERR, CBCAD, LIPD, CMP #### [facility] [address], [place] [id number] Creatinine [Mass/Vol] 0.8 mg/dL Normal 0.6-1.4 [facility] Specialist Comment on above: Performed By: #### F ERR, CBCAD, LIPD, CMP #### [facility] [address], [place] [id number] eGFRAA 93 mL/min/1.73m2 Normal >60 [facility] Comment on above: Performed By: #### F ERR, CBCAD, LIPD, CMP #### [facility] [address], [place] [id number] eGFRNAA 77 mL/min/1.73m2 Normal >60 [facility] Comment on above: Performed By: #### F ERR, CBCAD, LIPD, CMP #### [facility] [address], [place] [id number] Globulin (S) [Mass/Vol] 2.1 g/dL Normal 1.9-3.7 [facility] Comment on above: Performed By: #### F ERR, CBCAD, LIPD, CMP #### [facility] [address], [place] [id number] Glucose [Mass/Vol] 126 mg/dL High 65-99 [facility] Engineering Agent Comment on above: Result Comment: For FASTING Glucose --- ADA reference ranges: Normal 65-99 mg/dl Prediabetes 100-125 Diabetes >/= 126 Performed By: #### F ERR, CBCAD, LIPD, CMP #### [facility] [address], [place] [id number] Potassium [Moles/Vol] 3.7 mmol/L Normal 3.5-5.[address] [facility] Engineering Agent Comment on above: Performed By: #### F ERR, CBCAD, LIPD, CMP #### [facility] [address], [place] [id number] Protein [Mass/Vol] 6.2 g/dL Normal 6.1-8.1 [facility] Engineering Agent Comment on above: Performed By: #### F ERR, CBCAD, LIPD, CMP #### [facility] [address], [place] [id number] Sodium [Moles/Vol] 141 mmol/L Normal 135-146 [facility] Specialist Comment on above: Performed By: #### F ERR, CBCAD, LIPD, CMP #### [facility] [address], [place] [id number] Urea nitrogen [Mass/Vol] 15 mg/dL Normal 7-25 [facility] Engineering Agent Comment on above: Performed By: #### F ERR, CBCAD, LIPD, CMP #### [facility] [address], [place] [id number] Ferritinon 07-20-2021 FERR 361.3 ng/mL High 15.0-150.0 [facility] Agent Comment on above: Performed By: #### F ERR, CBCAD, LIPD, CMP #### [facility] [address], [place] [id number] Lipid Panelon 07-20-2021 Cholesterol [Mass/Vol] 161 mg/dL Normal 125-200 [facility] Comment on above: Result Comment: Low risk < 200mg/dL Borderline risk 201-239 mg/dl High risk > or equal to 240 Performed By: #### F ERR, CBCAD, LIPD, CMP #### [facility] [address], [place] [id number] Cholesterol in HDL [Mass/Vol] 36 mg/dL Low >40 [facility] Comment on above: Result Comment: High Cardiovascular Risk HDL <40 mg/dL Low Cardiovascular Risk HDL > or equal to 60 mg/dl Performed By: #### F ERR, CBCAD, LIPD, CMP #### [facility] [address], [place] [id number] Cholesterol in LDL [Mass/Vol] 87 mg/dL Normal [facility] Comment on above: Result Comment: LDL ATP III CLASSIFICATION LDL less than 100 mg/dl Optimal LDL 100-129 mg/dl Near or above optimal LDL 130-159 Borderline high LDL 160-189 High LDL greater than 189 mg/dl Very High Performed By: #### F ERR, CBCAD, LIPD, CMP #### [facility] [address], [place] [id number] Cholesterol in VLDL [Mass/Vol] 38 mg/dL Normal [facility] Engineering Agent Comment on above: Performed By: #### F ERR, CBCAD, LIPD, CMP #### [facility] [address], [place] [id number] Cholesterol.total/Chol esterol in HDL [Mass ratio] 4 {ratio} Normal [facility] Engineering Agent Comment on above: Performed By: #### F ERR, CBCAD, LIPD, CMP #### [facility] [address], [place] [id number] Triglyceride [Mass/Vol] 191 mg/dL High 30-150 [facility] Engineering Agent Comment on above: Result Comment: TRIG ATPIII CLASSIFICATIONS TRIG less than 150 mg/dl Normal TRIG 150-199 mg/dl Borderline High TRIG 200-500 mg/dl High TRIG greather than 500 mg/dl Very High Performed By: #### F ERR, CBCAD, LIPD, CMP #### [facility] [address], [place] [id number] Covid-19 PCR (CVDTB)on 05-20 SARS-CoV-2 (COVID-19) RNA ZAINAB+probe Ql (Unsp spec) Detected Critically abnormal NOT DETECTED [facility] Comment on above: Result Comment: This test is not yet approved or cleared by the [place] FDA. When there are no FDA-approved or cleared tests available, and other criteria are met, FDA can make tests available under an emergency access mechanism called an Emergency Use Authorization (EUA). The EUA for this test is supported by the Photolithographer of Health and Human Service's (HHS's) declaration that circumstances exist to justify the emergency use of in vitro diagnostics for the detection and/or diagnosis of the virus that causes COVID-19. This EUA will remain in effect (meaning this test can be used) for the duration of the COVID-19 declaration justifying emergency of IVDs, unless it is terminated or revoked by FDA (after which the test may no longer be used). Performed By: #### C VDTBH #### [facility] [address] [place], [place] [address] Dr. Liat Walker Free T3on 06-02-2021 FT3 3.56 pg/mL Normal 2.00-4.40 [facility] Comment on above: Performed By: #### F T4, TSH, FT3 #### [facility] [address], [place] [id number] Free T4on 06-02-2021 Free T4 [Mass/Vol] 0.80 ng/dL Normal 0.80-1.80 [facility] Comment on above: Performed By: #### F T4, TSH, FT3 #### [facility] [address], [place] [id number] Q - T3 TOTALon 06-02-2021 T3, TOTAL 123 ng/dL Normal 76-181 [facility] Comment on above: Order Comment: [facility] performed at: [facility], [employer] [facility], [address] [facility], [address] [place] [address], [id number], [employer] Troubleshooter: Phil Gilbert MDQuest Collection Date/Time: [id number] Results Received Date/Time: [id number] Reported Date/Time: Performed By: #### F T4, TSH, FT3 #### [facility] [address], [place] [id number] Q - T3,REVERSE,LC/MS/MSon T3 REVERSE, LC/MS/MS 10 ng/dL Normal 8-25 [facility] Comment on above: Order Comment: [facility] performed at: [facility], [employer], [address], [place], [place], , [employer] Rep[employer] Troubleshooter: Vasquez Morales M.D.,PhDQuest Collection Date/Time: [id number] Results Received Date/Time: [id number] Reported Date/Time: Result Comment: This test was developed and its analytical performance characteristics have been determined by [employer] [place], [place]. It has not been cleared or approved by the [place]. Food and Drug Administration. This assay has been validated pursuant to the CLIA regulations and is used for clinical purposes. Performed By: #### F T4, TSH, FT3 #### [facility] [address], [place] [id number] TSHon 06-02-2021 TSH 2.580 uIU/mL Normal 0.400-4.500 [facility] Engineering Agent Comment on above: Performed By: #### F T4, TSH, FT3 #### [facility] [address], [place] [id number] Vital Signs Date Time Vital Sign Value Performing Clinician Facility 09-03-2023 11:43-0400 Body height 157.[address] [facility] 09-03-2023 11:43-0400 Body mass index (BMI) [Ratio] 34.7 kg/m2 [facility] 09-03-2023 11:43-0400 Body temperature 97.1 [degF] [facility] 09-03-2023 11:43-0400 Body weight 86.[address] [facility] 09-03-2023 11:43-0400 Heart rate 75 /min [facility] 09-03-2023 11:43-0400 Respiratory rate 18 /min [facility] 09-03-2023 11:43-0400 SaO2% (BldA) [Mass fraction] 95 % [facility] 08-08-2023 10:20-0500 Body height 157.[address] [facility] 08-08-2023 10:20-0500 Body mass index (BMI) [Ratio] 35.2 kg/m2 [facility] 08-08-2023 10:20-0500 Body temperature 97.5 [degF] [facility] 08-08-2023 10:20-0500 Body weight 87.[address] [facility] 08-08-2023 10:20-0500 Diastolic blood pressure 80 mm[Hg] [facility] 08-08-2023 10:20-0500 Heart rate 73 /min [facility] 08-08-2023 10:20-0500 Respiratory rate 16 /min [facility] 08-08-2023 10:20-0500 SaO2% (BldA) [Mass fraction] 98 % [facility] 08-08-2023 10:20-0500 Systolic blood pressure 124 mm[Hg] [facility] 07-13-2023 16:45-0500 Body height 157.48 cm Kylah Galeana Other [facility] 07-13-2023 16:45-0500 Body mass index (BMI) [Ratio] 35.66 kg/m2 Kylah Lissett Other [employer] Other 07-13-2023 16:45-0500 Body temperature 98.8 [degF] Kylah Chinomond Other [employer] Other 07-13-2023 16:45-0500 Body weight 88.45 kg Kylah Chinomond Other [facility] 07-13-2023 16:45-0500 Diastolic blood pressure 80 mm[Hg] Kylah Lissett Other [facility] 07-13-2023 16:45-0500 Respiratory rate 18 /min Kylah Chinomond Other [employer] Other 07-13-2023 16:45-0500 SaO2% (BldA) [Mass fraction] 96 % Kylah Lissett Other [employer] Other 07-13-2023 16:45-0500 Systolic blood pressure 149 mm[Hg] Kylah Lissett Other [facility] 05-03-2022 16:05-0500 Body height 156.84 cm Kylah Lisstet Other [employer] Other 05-03-2022 16:05-0500 Body mass index (BMI) [Ratio] 34.29 kg/m2 Kylah Lissett Other [employer] Other 05-03-2022 16:05-0500 Body temperature 96.8 [degF] Kylah Galeana Other [employer] Other 05-03-2022 16:05-0500 Body weight 84.37 kg Kylah Galeana Other Managed Methods Other 05-03-2022 16:05-0500 Respiratory rate 18 /min Kylah Galeana Other Managed Methods Other 05-03-2022 16:05-0500 SaO2% (BldA) [Mass fraction] 96 % Kylah Chinomond Other Managed Methods Other Encounters Encounter Date Encounter Type Care Provider Facility Start: 02-20-2024 ambulatory Tayla Carson Facility:[facility] Start: 01-28-2024 ambulatory [facility] y:[facility] Start: 09-03-2023 End: 09-03-2023 ambulatory [facility] Work Phone: Start: 09-03-2023 End: 09-03-2023 Patient encounter procedure Replaced By [facility] Work Phone: Start: 08-08-2023 End: 08-08-2023 ambulatory [facility] Work Phone: Start: 08-08-2023 End: 08-08-2023 Patient encounter procedure Replaced By [facility] Work Phone: Start: 07-13-2023 End: 07-13-2023 ambulatory Kylah Lissett Other Managed Methods Other Start: 07-13-2023 Office outpatient vi sit 15 minutes Kylah Galeana [facility] Start: 07-13-2023 End: 07-13-2023 Patient encounter procedure Replaced By [facility]- Start: 04-20-2023 End: 04-20-2023 ambulatory Singh HARRIS Facility:[facility] Start: 05-03-2022 End: 05-03-2022 ambulatory Kylah Galeana Other Managed Methods Other Start: 05-03-2022 Office outpatient ne w 20 minutes Kylah Galeana [facility] Start: 06-17-2021 End: 06-17-[address] CECIL KNOX Facility:[facility] Procedures Date Procedure Procedure Detail Performing Clinician Start: 08-08-2023 COVID/Influenza Antigen (POC) Payers Date Payer Category Payer Unknown [id number] 1955 Unknown [id number] Blue Cross Blue Shield [id number] Medicare [id number] Self-pay Self Pay [id number] Unknown MMO [id number] Social History Date Type Detail Facility Unknown if ever smoked Managed Methods Other Sex Assigned At Sex Assigned At Bir th Managed Methods Other Start: 1955 Sex Assigned At Female F [facility] Start: 09-03-2023 Tobacco smoking status NHIS Never smoked tobacco (finding) [facility] Evaluation note 07-13-2023 Note Date & Type Note Facility 07-13-2023 Evaluation note Encounter Date Diagnosis Assessment Notes Jun, Bronchitis (ICD-10 - J40) Drink plenty fluids, get plenty of rest. Take Tylenol or Motrin as needed for aches pains or fevers. Use the albuterol inhaler as prescribed as needed for cough or shortness of breath. Take the prednisone as prescribed until gone for your cough and bronchitis. Take the benzonatate capsules as prescribed as needed for cough. Follow-up with your primary care physician if no improvement in 2 to 3 days. Go to the ER for worsening symptoms. Jun, Viral pharyngitis (ICD-10 - J02.9) Jun, History of asthma (ICD-10 - Z87.09) Jun, Contact with and (suspected) exposure to covid-19 (ICD-10 - Z20.822) Jun, Sore throat (ICD-10 - J02.9) Managed Methods Other Evaluation note 05-03-2022 Note Date & Type Note Facility 05-03-2022 Evaluation note Encounter Date Diagnosis Assessment Notes Apr, Acute sinusitis, recurrence not specified, unspecified location (ICD-10 - J01.90) Sinusitis home care material was printed, Sinusitis home care material was printed Drink plenty fluids, get plenty of rest. Take the doxycycline and prednisone as prescribed until gone. Use the Flonase inhaler as prescribed anterior symptoms improved. Take Tylenol or Motrin as needed for aches pains or fevers. Follow-up with your family physician if no improvement in 2 to 3 days. Apr, Left otitis media, unspecified otitis media type (ICD-10 - H66.92) Managed Methods Other Evaluation note Note Date & Type Note Facility Evaluation note Diagnosis Onset Date Contact with and (suspected) exposure to covid-19 acute COVID-19 acute [facility] Work Phone: Evaluation note Note Date & Type Note Facility Evaluation note Diagnosis Onset Date Contact with and (suspected) exposure to covid-19 acute COVID-19 acute Viral URI with cough acute Contact with or exposure to other viral diseases noneactive [facility] Work Phone: History general Narrative - Reported Note Date & Type Note Facility History general Narrative - Reported Type Medical History Hypothyroidism Medical History asthma Medical History seasonal allergies Medical History haris- manuel Surgical History tubal ligation Surgical History appendectomy Surgical History left oophorectomy Surgical History cholecystectomy Hospitalization History multiple stays for asthm a Managed Methods Other History general Narrative - Reported Note Date & Type Note Facility History general Narrative - Reported Type Medical History Hypothyroidism Medical History asthma Medical History seasonal allergies Medical History haris- manuel Surgical History tubal ligation Surgical History appendectomy Surgical History left oophorectomy Surgical History cholecystectomy Surgical History hernia Hospitalization History multiple stays for asthm a Managed Methods Other Summary Purpose Family History No Family History Records Found Relationship Condition Age at Onset Recorded Date/T nelson father Unknown Not Specified Unknown sister Unknown Advance Directives No Advanced Directives Records Found Advance Directive Response Recorded Date/ Time Advance Directives No July 10:48am Advance Directive Response Recorded Date/ Time Advance Directives No July 10:46am Chief Complaint and Reason for Visit Chief Complaint Sore Throat Congestion Reason for Visit Contact with and (resendiz spected) exposure to covid-19 COVID-19 Chief Complaint Sore Throat Congestion cough, congestion Reason for Visit Contact with and (resendiz spected) exposure to covid-19 COVID-19 Viral URI with cough Contact with or exposure to other viral diseases Additional Source Comments INFORMATION SOURCE (unrecogn ized section and content) DATE CREATED AUTHOR 06/24/2021 [facility] DATE CREATED AUTHOR AUTHOR'S ORGANIZ ATION 10/13/2021 [facility] d[facility] Specialist DATE CREATED AUTHOR AUTHOR'S ORGANIZ ATION 01/29/2024 [facility] REASON FOR VISIT (unrecogniz ed section and content) CONGESTION COUGHSORE THROAT Care Teams (unrecognized sec tion and content) Team Status: Active Member Role Status Dates PHYSICIAN NO FAMILY Primary Care Provider Active Team Status: Inactive Member Role Status Dates TAMERA Sequeira Attending Provider Active S tart: July 13, 2023 End: July 13, 2023 Team Status: Inactive Member Role Status Dates PHYSICIAN NO FAMILY Primary Care Provider Active Start: August 08, 2023 End: August 08, 2023 TAMERA Sequeira Attending Provider Active S tart: August 08, 2023 End: August 08, 2023 Team Status: Inactive Member Role Status Dates PHYSICIAN NO FAMILY Primary Care Provider Active Start: September 03, 2023 End: September 03, 2023 Gem Palafox APRN Attending Provider Active S tart: September 03, 2023 End: September 03, 2023 Goals (unrecognized section and content) Goals may be documented in a n alternate section FOR RECORDS PERTAINING TO PATIENTS WHO ARE OR HAVE BEEN ENROLLED IN A CHEMICAL DEPENDENCY/SUBSTANCEABUSE PROGRAM, SOME INFORMATION MAY BE OMITTED. This clinical summary was aggregated from multiple sources. Caution should be exercised in using it in the provision of clinical care. This summary normalizes information from multiple sources, and as a consequence, information in this document may materially change the coding, format and clinical context of patient data. In addition, data may be omitted in some cases. CLINICAL DECISIONS SHOULD BE BASED ON THE PRIMARY CLINICAL RECORDS. [facility] [employer] [facility]. provides no warranty or guarantee of the accuracy or completeness of information in this document.
== END 2024-02-15 10:13 | disposition home or self-care (01) ==
PROVIDERS: PCP Nurse Practitioner Family; Visit Provider Urology
DX: N20.0 Calculus of kidney (principal)
CPT/HCPCS: 74018

== ENCOUNTER 2024-03-11 10:39 | Outpatient (OUT) | payer BC, MEDICARE, SELFPAY | END 2024-03-11 10:40 | disposition home or self-care (01) | LOC: PST 10:41 | PROVIDERS: PCP Nurse Practitioner Family; Visit Provider Urology | DX: Z01.818 Encounter for other preprocedural examination (principal); N20.0 Calculus of kidney ==

== ENCOUNTER 2024-03-19 11:06 | Day surgery (SDC) | payer BC, MEDICARE, SELFPAY ==
[2024-03-11 11:41] VITALS: BP 129/79; PULSE 59; TEMP 36.3; O2SAT 96; BMI 34.1
[2024-03-19] VITALS (11 sets, daily range): BP systolic 147–181; BP diastolic 66–95; PULSE 53–72; TEMP 36.1–36.2; O2SAT 91–98; BMI 34.1
--- NOTE | 2024-03-19 11:15 | XR_ITS ---
The [address] [address] Patient Name: DEV BACON MRN: [id number] date: 1955 Sex: F Assigned Patient Location: [facility] Current Patient Location: Accession/Order Number: [id number] Exam Date: 03/19/2024 11:16 Report Date: 03/20/2024 10:37 At the request of: RILEY ATKINS Procedure: XR abdomen 1V EXAMINATION: XR abdomen 1V HISTORY: kidney stones COMPARISON: 02/15/2024 FINDINGS: KIDNEY/URETER - RIGHT: 1.8 cm calcification projects over the right renal pelvis. Additional 7 mm calcification upper pole, both stable KIDNEY/URETER - LEFT: No visible renal or ureteral calcifications. PELVIS: No visible ureteral calcifications. Any visible calcifications favor phleboliths. BOWEL: No abnormal dilation or deviation. BONES: No acute abnormality. Moderate degenerative changes with rotatory levocurvature OTHER: Negative. No abnormal gaseous collections. XR/XR abdomen 1V IMPRESSION: Stable right nephrolithiasis Electronically authenticated by: REHAN MEDLEY Date: 03/20/2024 10:37
--- OUTSIDE RECORDS SUMMARY | 2024-03-19 11:17 | XMS_ITS | CCD ---
Author Organization [facility] Informat ion Partnership [facility] Care Team Providers Care Director Of Healthcare Systems Name Role Phone DR CECIL KNOX Attending Unavailable DR CECIL KNOX Consulting Unavailable DR CECIL KNOX Admitting Unavailable Kylah Galeana Unavailable Singh HARRIS Attending Unavailable Tayla Carson Attending Unavailable Tayla Carson Attending Unavailable Tayla Carson Admitting Unavailable Tayla Carson Attending Unavailable LEMUEL GAMBOA Primary Care Physician Allergies Allergy Classification Reported Allergen(s) Allergy Type Date of Onset Reaction(s) Facility (2 sources) Cephalexin Drug Allergy itching on her head [facility] [employer] Other (7 sources) diazePAM; Translations: [diazePAM] Drug Allergy 08-08-19 24 hives, Eruption of skin (disorder) [place] (2 sources) levothyroxine Drug Allergy rash [facility] [employer] Other (4 sources) Penicillin G Drug Allergy 08-08-19 24 hives, SOB [place] (4 sources) dye for testing Propensity to adverse reactions 07-16-19 24 anaphylaxis [place] (5 sources) Cephalexin; Translations: [cephalexin] Drug Allergy 08-08-19 Eruption of skin (disorder) [place] (2 sources) levothyroxine Drug Allergy 08-08-19 rash [place] (3 sources) Amoxicillin; Translations: [amoxicillin] Drug Allergy Eruption of skin (disorder) [facility] (3 sources) Contrast media; Translations: [contrast media (iodine-based)] Propensity to adverse reactions (disorder) Anaphylaxis (disorder) [facility] (3 sources) Ibuprofen; Translations: [ibuprofen] Drug Allergy Eruption of skin (disorder) [facility] (3 sources) levothyroxine; Translations: [levothyroxine] Drug Allergy Eruption of skin (disorder) [facility] (3 sources) Penicillins; Translations: [penicillins] Propensity to adverse reactions (disorder) Eruption of skin (disorder) [facility] Medications Current Medications Medication Drug Class(es) Dates Sig (Normalized) Sig (Original) ABDEK oral capsule (2 sources) Start: 02-20-2024 take 1 capsule by mouth once daily ABDEK oral capsule cap(s), Oral, Daily, Refill(s) 0 Start Date: 02/20/24 Status: Ordered Albuterol (Eqv-ProAir HFA) 90 mcg/inh inhalation aerosol (2 sources) Start: 02-20-2024 Albuterol (Eqv-ProAir HFA) 90 mcg/inh inhalation aerosol 2 puff(s), inhale 1 puff by mouth and INTO THE LUNGS every 6 hours if needed Start Date: 02/20/24 Status: Ordered benzonatate 200 mg oral capsule (1 source) Non-narcotic Antitussive Start: 07-16-2023 take 1 capsule by mouth every eight hours Benzonatate 200 MG 1 capsule Orally Three times a day Jun, Active K2 Liquid (2 sources) Start: 02-20-2024 take 1 ug by mouth once daily K2 Liquid mcg, Oral, Daily, Refills(s) 0 Start Date: 02/20/24 Status: Ordered lisinopril 40 mg oral tablet (4 sources) Angiotensin Converting Enzyme Inhibitor Start: 02-20-2024 take 1 tablet by mouth once daily lisinopril 40 mg Tab 40 mg = 1 tab(s), Oral, Daily, # 30 tab(s), Refills(s) 0 Start Date: 02/20/24 Status: Ordered Start: 08-08-2023 Lisinopril Act zamzam MG PO August 08, 2023 1:00am Start: 08-08-2023 Lisinopril Act zamzam MG PO August 08, 2023 12:00am magnesium gluconate 250 mg oral tablet (2 sources) Start: 02-20-2024 take 1 mg by mouth twice daily magnesium gluconate 250 mg oral tablet mg, tab(s), Oral, BID, Refill(s) 0 Start Date: 02/20/24 Status: Ordered methylPREDNISolone 4 mg oral tablet (3 sources) [...] Orally bid for 5 day(s) Jun, Active topiramate 50 mg oral tablet (3 sources) Start: 02-20-2024 take 1 tablet by mouth twice daily topiramate 50 mg Tab 50 mg = 1 tab(s), Oral, BID, # 180 tab(s), Refills(s) 0 Start Date: 02/20/24 Status: Ordered Start: 09-03-2023 Topiramate Act zamzam MG PO September 03, 2023 12:00am vitamin B12 (2 sources) Vitamin B12 Start: 02-20-2024 Vitamin B12 Re fills(s) 0 Start Date: 02/20/24 Status: Ordered Completed/Discontinued Medications Medication Drug Class(es) Dates Sig (Normalized) Sig (Original) albuterol 0.83 mg/ml inhalation solution (3 sources) beta2-Adrenergic Agonist Start: 02-20-2024 take 1 dose by inhalation every six hours albuterol 0.083% Inh Francisca 3 mL 2.5 mg, 3 mL, INHALE CONTENTS OF 1 VIAL IN NEBULIZER EVERY 6 HOURS IF NEEDED Start Date: 02/20/24 Status: Ordered Start: 07-16-2023 take 2 puff(s) by in halation four times daily as needed Albuterol Sulfate HFA 108 (90 Base) MCG/ACT 2 puffs Inhalation 4 times a day prn Jun, Active amLODIPine 10 mg oral tablet (5 sources) Dihydropyridine Calcium Channel Jennie Start: 02-20-2024 take 1 tablet by mouth once daily amLODIPine 10 mg Tab 10 mg = 1 tab(s), TAKE 1 TABLET BY MOUTH ONCE DAILY Start Date: 02/20/24 Status: Ordered Start: 08-08-2023 Amlodipine Act zamzam MG PO August 08, 2023 1:00am Start: 08-08-2023 Amlodipine Act zamzam MG PO August 08, 2023 12:00am take 1 tablet by mann th once daily amLODIPine Besylate 10 MG take 1 tablet by mouth once daily Oral for 90 Days Active doxycycline hyclate 100 mg oral tablet (2 sources) Tetracycline-class Drug Start: 05-03-2022 take 1 tablet by mouth every twelve hours Doxycycline Hyclate 100 MG 1 tablet Orally Twice a day for 10 day(s) Apr, Not-Taking/PRN ezetimibe 10 mg oral tablet (5 sources) Dietary Cholesterol Absorption Inhibitor Start: 02-20-2024 take 1 tablet by mouth once daily at bedtime ezetimibe 10 mg Tab 10 mg = 1 tab(s), take 1 tablet by mouth once daily at bedtime for 90 DAYS Start Date: 02/20/24 Status: Ordered Start: 08-08-2023 Ezetimibe Acti ve MG PO August 08, 2023 1:00am take 1 tablet by mann th once daily at bedtime Ezetimibe 10 MG take 1 tablet by mouth once daily at bedtime Oral for 30 Days Active fluticasone propionate 0.05 mg/actuat metered dose nasal spray (2 sources) Corticosteroid Start: 05-03-2022 take 2 spray(s) nasal route once daily as needed Fluticasone Propionate 50 MCG/ACT 2 sprays Nasally Once a day for 14 day(s) Apr, Not-Taking/PRN Start: 05-03-2022 take 2 spray(s) nasa l route once daily Fluticasone Propionate 50 MCG/ACT 2 sprays Nasally Once a day for 14 day(s) Apr, Active levothyroxine sodium 0.088 mg oral capsule (5 sources) l-Thyroxine Start: 02-20-2024 take 1 capsule by mouth once daily in the morning levothyroxine 88 mcg (0.088 mg) oral capsule 88 mcg = 1 cap(s), take 1 capsule by mouth every morning Start Date: 02/20/24 Status: Ordered Start: 08-08-2023 Levothyroxine Active MCG PO August 08, 2023 1:00am Start: 02-21-2024 Levothyroxine Active MCG PO August 08, 2023 12:00am Levothyroxine So dium 88 MCG Oral for 30 Days Active sertraline 100 mg oral tablet (4 sources) Serotonin Reuptake Inhibitor Start: 02-20-2024 take 1 tablet by mouth once daily sertraline 100 mg Tab 100 mg = 1 tab(s), take 1 tablet by mouth once daily Start Date: 02/20/24 Status: Ordered Start: 08-08-2023 Sertraline Act zamzam MG PO August 08, 2023 1:00am Problems Active Problems Problem Classification Problem Date Documented Da te Episodic/Chronic Abdominal pain (3 sources) Abdominal pain; Translations: [Unspecified abdominal pain] Onset: 02-20-2024 Episodic Asthma (2 sources) Exacerbation of mild persistent asthma; Translations: [Mild persistent asthma with (acute) exacerbation] Chronic Calculus of urinary tract (3 sources) Kidney stone; Translations: [Calculus of kidney] Onset: 02-20-2024 Episodic Chronic obstructive pulmonary disease and bronchiectasis (1 source) Bronchitis, not specified as acute or chronic Episodic Genitourinary symptoms and ill-defined conditions (6 sources) Blood in urine; Translations: [Gross hematuria] Onset: 02-20-2024 Episodic Immunizations and screening for infectious disease [...] source) Otitis media, unspecified, left ear Episodic Screening and history of mental health and substance abuse codes (3 sources) H/O: Disorder; Translations: [Personal history of nicotine dependence] Onset: 02-20-2024 Episodic Unclassified (2 sources) CONTACT W/AND (SUSP) [...] Test Name Value Interpretation Reference Range Facility C Urineon 02-22-2024 Bacteria identified Cx Nom (U) Microbiology PROCEDURE: Urine Culture [R1] SOURCE: U CleanCatch BODY SITE: COLLECTED DATE/TIME: 02/20/2024 09:59 EDT RECEIVED DATE/TIME: 02/20/2024 18:05 EDT START DATE/TIME: 02/20/2024 18:06 EDT FREE TEXT SOURCE: Alli CASTILLO, Tayla Carson MD, Tayla Vallejo FINAL REPORTS Final Report [] Verified Date/Time: 02/22/2024 10:36 EDT 2,000 cfu/ml Mixed skin contaminants Performing Locations R1: This test was performed at: [facility], [address] [place] [address], [facility] , , [facility] Comment on above: Performed By: #### [id number] #### [facility] [address] [place] [address] Ambulatory Visit Summaryon 0 02-20-2024 Ambulatory Visit Summary Ambulatory Visit Summary DEV PHIPPS :1955 Visit Date:02/20/2024 Ambulatory Visit Instructions Your Diagnosis Kidney stones Gross hematuria Right flank pain History of UTI Former smoker Your Care Team Attending Physician - Alli CASITLLO, Tayla Vallejo Primary Care Physician - LEMUEL GAMBOA CNP This Is Your Medications List Contact prescribing physician if questions or concerns albuterol (Albuterol (Eqv-ProAir HFA) 90 mcg/inh inhalation aerosol) albuterol (albuterol 0.083% Inh Francisca 3 mL) amlodipine (amLODIPine 10 mg Tab) cyanocobalamin (Vitamin B12) ezetimibe (ezetimibe 10 mg Tab) levothyroxine (levothyroxine 88 mcg (0.088 mg) oral capsule) lisinopril (lisinopril 40 mg Tab) magnesium gluconate (magnesium gluconate 250 mg oral tablet) menaquinone (K2 Liquid) multivitamin with minerals (ABDEK oral capsule) sertraline (sertraline 100 mg Tab) topiramate (topiramate 50 mg Tab) Discharge Vitals Heart Rate (Peripheral) 78 Blood Pressure 128/72 Height 158 cm Height 62 in Weight 84 kg Weight 184.8 lb BMI 33.65 What to do next You Need to Schedule the Following Appointments Follow Up with Alli CASTILLO, LESTER Stapleton [facility] When: Where: [address] [place] [address] [phone] Medications What How Much When Instructions Unchanged albuterol (Albuterol (Eqv-ProAir HFA) 90 mcg/ inh inhalation aerosol) 2 Puffs inhale 1 puff by mouth and INTO THE LUNGS every 6 hours if needed Contact prescribing physician if questions or concerns Unchanged albuterol (albuterol 0.083% Inh Francisca 3 mL) 3 Milliliter INHALE CONTENTS OF 1 VIAL IN NEBULIZER EVERY 6 HOURS IF NEEDED Contact prescribing physician if questions or concerns Unchanged amlodipine (amLODIPine 10 mg Tab) 1 Tablets TAKE 1 TABLET BY MOUTH ONCE DAILY Contact prescribing physician if questions or concerns Unchanged cyanocobalamin (Vitamin B12) Contact prescribing physician if questions or concerns Unchanged ezetimibe (ezetimibe 10 mg Tab) 1 Tablets take 1 tablet by mouth once daily at bedtime for 90 DAYS Contact prescribing physician if questions or concerns Unchanged levothyroxine (levothyroxine 88 mcg (0.088 mg) oral capsule) 1 Capsules take 1 capsule by mouth every morning Contact prescribing physician if questions or concerns Unchanged lisinopril (lisinopril 40 mg Tab) 1 Tablets By Mouth Every day Contact prescribing physician if questions or concerns Unchanged magnesium gluconate (magnesium gluconate 250 mg oral tablet) By Mouth 2 times a day Contact prescribing physician if questions or concerns Unchanged menaquinone (K2 Liquid) By Mouth Every day Contact prescribing physician if questions or concerns Unchanged multivitamin with minerals (ABDEK oral capsule) By Mouth Every day Contact prescribing physician if questions or concerns Unchanged sertraline (sertraline 100 mg Tab) 1 Tablets take 1 tablet by mouth once daily Contact prescribing physician if questions or concerns Unchanged topiramate (topiramate 50 mg Tab) 1 Tablets By Mouth 2 times a day Contact prescribing physician if questions or concerns Allergies amoxicillin (Rash) cephalexin (Rash) contrast media (iodine-based) (Anaphylaxis) diazePAM (Rash) ibuprofen (Rash) levothyroxine (Rash) penicillins (Rash) Problems Ongoing - Any problem that you are currently receiving treatment for. Former smoker Gross hematuria History of UTI Kidney stones Right flank pain Patient Survey You may receive a survey via text or e-mail asking about your office visit. Please share your experience with us by completing your survey. We appreciate your feedback and thank you for choosing us for your care. Education [employer] Laser Therapy for Kidney Stones, Care After After laser therapy for kidney stones, it is common to have: ? Pain. ? A burning feeling when you pee (urinate). ? Small amounts of blood in your pee (urine). ? A need to pee a lot. ? Parts of the kidney stone in your pee. ? Mild discomfort in your back when you pee. You may have this if you had a small mesh tube (stent) placed during the procedure. Follow these instructions at home: Medicines ? Take rios-kol-mkokndy and prescription medicines only as told by your health care provider. ? If you were prescribed antibiotics, take them as told by your provider. Do not stop using the antibiotic even if you start to feel better. ? Ask your provider if the medicine prescribed to you: ? Requires you to avoid driving or using machinery. ? Can cause constipation. You may need to take these actions to prevent or treat constipation: ? Drink enough fluid to keep your pee pale yellow. ? Take kffo-gme-ipwphuq or prescription medicines. ? Eat foods that are high in fiber, such as beans, whole grains, and fresh fruits and vegetables. ? Limit foods that are high in fat and processed sugars, such as fried or sweet foods. (more content not included)... Normal [facility] Office/Clinic Noteon 02-20-2024 Urology Office/Clinic Note Urology Office/Clinic Note Chief Complaint [facility] ED f/u HPI Staff New pt f/u from [facility] ED visit 01/26/24 with complaints of right flank pain and tenderness associated with nausea. At that time she stated that she had been seeing some hematuria at times. Stated that she does have a hx of kidney stones. CT done at that time showed a large calculus in the right renal pelvis measuring 1.8 x 1.6 cm. Urine culture 01/26/24 positive E-Coli greater than 100,000 cfu/ml Pt treated with Cipro 500mg BID for 7 days. pt is c/o bleeding, more when active. Blood is not all the time, at times she has the cramping. pt still having slight flank pain. Dysuria: no Incomplete bladder emptying: at times Hematuria: yes Frequency: q2-3 hrs Urgency: no Nocturia: 2x Stream: varies Leaking: no Post void dripping: no Wearing pads/ Depends: no Urge incontinence: no Stress incontinence: no Incontinence without Sensory Awareness: no Abdominal pain: no Flank pain: slight Sexual complaints: no History of Present Illness Tests reviewed: reviewed UA, external: ER notes & labs & CT scan & ucx, KUB I have reviewed the previous health record information and history for this patient from external providers. I have reviewed and verified the staff HPI to be accurate for this encounter. Review of Systems PHQ Score Initial Depression Screen Score: 0 SCORE ROS - Provider Constitutional: denies weight loss, denies hot flashes. Eyes: denies eye problems. Gastrointestinal: denies nausea, denies vomiting. Cardiovascular: denies chest pain or angina. Integumentary: no dryness Musculoskeletal: denies musculoskeletal symptoms. ENMT: denies otolaryngeal symptoms. Respiratory: no shortness of breath. Heme/Lymph: denies easy bleeding tendency, denies easy bruising tendency. Psychiatric: no confusion, no anxiety. Genitourinary: See HPI. Physical Exam Vitals & Measurements HR: 78(Peripheral) BP: 128/72 HT: 62 in HT: 158 cm WT: 84 kg WT: 184.8 lb BMI: 33.65 General Appearance: alert , no acute distress, well nourished, well developed female. Head: normocephalic . Eyes: normal orbit and globe. ENMT: normal examination of external ears. Chest: symmetric chest rise, respirations non labored . Cardiovascular: regular rate and rhythm. Abdomen: soft , non distended, no tenderness Genitourinary: bladder nonpalpable, no flank tenderness Skin: warm, dry, no bruising. Psychiatric: cooperative, affect appropriate for age, normal judgement, euthymic mood. Assessment/Plan Dev is a 68 yo female with remote hx of kidney stones new pt here for f/u to [facility] ER due to right flank pain, large R kidney stone BBS 12. 1. Kidney stones (N20.0: Calculus of kidney) Hx of right kidney stone, requiring lithotripsy in the distant past, [address] [facility] wo con 01/26/24 [facility] - R renal pelvis stone 1.8 x 1.6 cm. No significant dilatation of R kidney. Another nonobstructing calculus in mid R kidney measuring 7 mm. No L renal or ureteral stones or hydro. Renal fxn 01/26/24 - BUN 19, Cr 0.85, GFR >60 KUB 02/15/24 [facility] - 18mm stone in R renal pelvis and 7mm stone in mid body. No visible L renal or ureteral calcifications. Reviewed imaging results. Advised pt she has two renal stones. Discussed intervention including extracorporeal shockwave lithotripsy vs ureteroscopy with laser lithotripsy/stone basket extraction possible stent. Risks/benefits of each were discussed including but not limited to: ESWL- bleeding, hematoma, pain, infection, inability to break up the stone, ureteral obstruction, cardiac arrhythmias, damage to surrounding structures and need for additional procedures; ureteroscopy - bleeding, pain, infection, damage to surrounding structures, ureteral perforation, stricture, inability to treat the stone and need for additional procedures. If a stent is placed, pt understands this is not permanent and needs to be removed or exchanged within 3 months to prevent encrustation, infection, permanent renal damage and need for more invasive procedures. -Pt aware URS and ESWL likely staged given large stone size Drinks 2-3 20oz bottles of water, tea, mushroom coffee, and shakes daily. Advised pt goal is to drink 90oz of water per day. Discussed metabolic workup to help determine the etiology of kidney stone formation, including genetic predisposition, dietary factors, and different metabolism in patients. Advised pt workup can be done after intervention. -Pt opts to schedule Cysto with Right JJ Stent Placement and Right ESWL (likely staged given large stone size) The procedure risks, benefits, details and treatment alternatives have been discussed with the patient. These include blood urine, infection, bleeding around the kidney, kidney bruising, inability to break up the stone, need for blood transfusion, stent pain, injury to the ureter, bladder irritation from the stent, flank pain, and need for additional procedures, among others. Full informed consent has been (more content not included)... [facility] Comment on above: Result Comment: Elec tronically Signed By: Tayla Carson MD\.br\Date and Time Signed: 02/20/24 09:29 EDT\.br\Electronically Co-Signed By: Roxanne Osei\.br\Date and Time Co-Signed: 02/20/24 09:03 EDT No Panel InformationOrdered By: Kylah Galeana on 08-08-2023 COVID/Influenza Antigen (POC) [place] COVID/Influenza Antigen (POC) [place] COVID + FLU Quick Testingon 07-13-2023 SARS-CoV-2 (COVID-19) RNA ZAINAB+probe Ql (Unsp spec) negativ [facility] [employer] Other COVID + FLU Quick Testing Negative [facility] [employer] Other Quick Strepon 07-13-2023 S. pyogenes Org specific cx Ql (Throat) Negative [facility] [employer] Other Quick Strep [facility] [employer] Other [place] 04-20-2023 Consent [id number]#[id number] [facility] Registrationon 04-20-2023 Registration [id number]#1.00TIFF [facility] Glucose Tolerance Test 2 [address] 10-11-2021 FGLU 104 mg/dL High 65-99 [facility] [employer] Comment on above: Result Comment: Acco rding to ADA: Fasting Glucoe Normal 65-99 mg/dl Prediabetes 100-125 mg/dl Diabetes >/= 126 Performed By: #### G TT2, FE Prof #### [facility] [address] [place], [place] [id number] GLU1H 215 mg/dL Normal [facility] Specialist Comment on above: Performed By: #### G TT2H, FE Prof #### [facility] [address] [place], [place] [id number] GLU2H 200 mg/dL Normal [facility] Specialist Comment on above: Performed By: #### G TT2H, FE Prof #### [facility] [address] [place], [place] [id number] Hemoglobin A1Con 10-11-2021 EAG 93.93 Normal [facility] Specialist Comment on above: Performed By: #### A 1C #### [facility] [address] [place], [place] [id number] HbA1c (Bld) [Mass fraction] 4.9 % Normal 4.0-6.0 [facility] [employer] Comment on above: Performed By: #### A 1C #### [facility] [address] [place], [place] [id number] Iron Profileon 10-11-2021 %FESAT 31 % Normal 11-50 [facility] [employer] Comment on above: Performed By: #### G TT2H, FE Prof #### [facility] [address] [place], [place] [id number] FE 76 ug/dL Normal 40-190 [facility] [employer] Comment on above: Result Comment: Refe rence range change 05/04/2017. Prior reference range F 37-145 ug/dL, M 59-158 ug/dL. Performed By: #### G TT2H, FE Prof #### [facility] [address] [place], [place] [id number] TIBC 249 ug/dL Low 250-450 [facility] [employer] Comment on above: Performed By: #### G TT2H, FE Prof #### [facility] [address] [place], [place] [id number] UIBC 173 ug/dL Normal 112-347 [facility] [employer] Comment on above: Performed By: #### G TT2H, FE Prof #### [facility] [address] [place], [place] [id number] Complete Blood Count with Au to Diffon 07-20-2021 Basophils (Bld) [#/Vol] 0.02 10*3/uL Normal 0.00-0.20 [facility] [employer] Comment on above: Performed By: #### F ERR, CBCAD, LIPD, CMP #### [facility] [address] [place], [place] [id number] Basophils/100 WBC (Bld) 0.3 % Normal [facility] [employer] Comment on above: Performed By: #### F ERR, CBCAD, LIPD, CMP #### [facility] [address] [place], [place] [id number] Eosinophils (Bld) [#/Vol] 0.30 10*3/uL Normal 0.02-0.50 [facility] [employer] Comment on above: Performed By: #### F ERR, CBCAD, LIPD, CMP #### [facility] [address] [place], [place] [id number] Eosinophils/100 WBC (Bld) 4.2 % Normal [facility] [employer] Comment on above: Performed By: #### F ERR, CBCAD, LIPD, CMP #### [facility] [address] [place], [place] [id number] Erythrocyte distribution width (RBC) [Ratio] 13.7 % Normal 11.0-15.0 [facility] [employer] Comment on above: Performed By: #### F ERR, CBCAD, LIPD, CMP #### [facility] [address] [place], [place] [id number] Hematocrit (Bld) [Volume fraction] 39.0 % Normal 35.0-47.0 [facility] [employer] Comment on above: Performed By: #### F ERR, CBCAD, LIPD, CMP #### [facility] [address] [place], [place] [id number] Hemoglobin (Bld) [Mass/Vol] 13.3 g/dL Normal 11.6-15.5 [facility] [employer] Comment on above: Performed By: #### F ERR, CBCAD, LIPD, CMP #### [facility] [address] [place], [place] [id number] Lymphocytes (Bld) [#/Vol] 3.0 10*3/uL Normal 0.9-3.9 [facility] [employer] Comment on above: Performed By: #### F ERR, CBCAD, LIPD, CMP #### [facility] [address] [place], [place] [id number] Lymphocytes/100 WBC (Bld) 42.1 % Normal [facility] Comment on above: Performed By: #### F ERR, CBCAD, LIPD, CMP #### [facility] [address] [place], [place] [id number] MCH (RBC) [Entitic mass] 31.0 pg Normal 27.0-33.0 [facility] Comment on above: Performed By: #### F ERR, CBCAD, LIPD, CMP #### [facility] [address] [place], [place] [id number] MCHC (RBC) [Mass/Vol] 34.1 g/dL Normal 32.0-36.0 [facility] [facility] Comment on above: Performed By: #### F ERR, CBCAD, LIPD, CMP #### [facility] [address] [place], [place] [id number] MCV (RBC) [Entitic vol] 91 fL Normal 80-100 [facility] Comment on above: Performed By: #### F ERR, CBCAD, LIPD, CMP #### [facility] [address] [place], [place] [id number] Monocytes (Bld) [#/Vol] 0.5 10*3/uL Normal 0.2-0.9 [facility] Comment on above: Performed By: #### F ERR, CBCAD, LIPD, CMP #### [facility] [address], [place] [id number] Monocytes/100 WBC (Bld) 7.6 % Normal [facility] Comment on above: Performed By: #### F ERR, CBCAD, LIPD, CMP #### [facility] [address] [place], [place] [id number] Neutrophils (Bld) [#/Vol] 3.2 10*3/uL Normal 1.5-7.8 [facility] Comment on above: Performed By: #### F ERR, CBCAD, LIPD, CMP #### [facility] [address], [place] [id number] Neutrophils/100 WBC (Bld) 45.1 % Normal [facility] Comment on above: Performed By: #### F ERR, CBCAD, LIPD, CMP #### [facility] [address] [place], [place] [id number] Platelet mean volume (Bld) [Entitic vol] 9.30 fL Normal 7.50-12.50 [facility] Specialist Comment on above: Performed By: #### F ERR, CBCAD, LIPD, CMP #### [facility] [address] [place], [place] [id number] Platelets (Bld) [#/Vol] 256 10*3/uL Normal 140-400 [facility] Comment on above: Performed By: #### F ERR, CBCAD, LIPD, CMP #### [facility] [address] [place], [place] [id number] RBC (Bld) [#/Vol] 4.29 10*6/uL Normal 3.90-5.20 [facility] [employer] Comment on above: Performed By: #### F ERR, CBCAD, LIPD, CMP #### [facility] [address] [place], [place] [id number] RDW-SD 44.8 fL Normal 37.0-50.0 [facility] Comment on above: Performed By: #### F ERR, CBCAD, LIPD, CMP #### [facility] [address] [place], [place] [id number] WBC (Bld) [#/Vol] 7.1 10*3/uL Normal 3.8-11.0 [facility] [employer] Comment on above: Performed By: #### F ERR, CBCAD, LIPD, CMP #### [facility] [address] [place], [place] [id number] Comprehensive Metabolic Pane alberta 07-20-2021 Albumin [Mass/Vol] 4.1 g/dL Normal 3.6-5.1 [facility] [employer] Comment on above: Performed By: #### F ERR, CBCAD, LIPD, CMP #### [facility] [address] [place], [place] [id number] Albumin/Globulin [Mass ratio] 2.0 {ratio} Normal 1.0-2.5 [place] [employer] Comment on above: Performed By: #### F ERR, CBCAD, LIPD, CMP #### [facility] [address] [place], [place] [id number] ALP [Catalytic activity/Vol] 62 U/L Normal 35-119 [facility] Special[facility] Comment on above: Performed By: #### F ERR, CBCAD, LIPD, CMP #### [facility] [address] [place], [place] [id number] ALT [Catalytic activity/Vol] 22 U/L Normal 6-33 [facility] Special[facility] Comment on above: Result Comment: 05/18 Female reference range changed. Performed By: #### F ERR, CBCAD, LIPD, CMP #### [facility] [address] [place], [place] [id number] Anion gap [Moles/Vol] 16 mmol/L Normal 12-20 [facility] Comment on above: Result Comment: Effe ctive 06/23/2019 reference range changed. Performed By: #### F ERR, CBCAD, LIPD, CMP #### [facility] [address] [place], [place] [id number] AST [Catalytic activity/Vol] 16 U/L Normal 9-34 [facility] Comment on above: Performed By: #### F ERR, CBCAD, LIPD, CMP #### [facility] [address] [place], [place] [id number] Bilirubin [Mass/Vol] 0.41 mg/dL Normal 0.30-1.20 [facility] Comment on above: Performed By: #### F ERR, CBCAD, LIPD, CMP #### [facility] [address] [place], [place] [id number] BUN/CREA 20 Ratio Normal 6-22 [facility] Comment on above: Performed By: #### F ERR, CBCAD, LIPD, CMP #### [facility] [address] [place], [place] [id number] Calcium [Mass/Vol] 9.2 mg/dL Normal 8.6-10.2 [facility] Comment on above: Performed By: #### F ERR, CBCAD, LIPD, CMP #### [facility] [address] [place], [place] [id number] Chloride [Moles/Vol] 108 mmol/L High 98-107 [facility] Comment on above: Performed By: #### F ERR, CBCAD, LIPD, CMP #### [facility] [address] [place], [place] [id number] CO2 [Moles/Vol] 21 mmol/L Normal 20-31 [facility] Comment on above: Performed By: #### F ERR, CBCAD, LIPD, CMP #### [facility] [address] [place], [place] [id number] Creatinine [Mass/Vol] 0.8 mg/dL Normal 0.6-1.4 [facility] Comment on above: Performed By: #### F ERR, CBCAD, LIPD, CMP #### [facility] [address] [place], [place] [id number] eGFRAA 93 mL/min/1.73m2 Normal >60 [facility] Comment on above: Performed By: #### F ERR, CBCAD, LIPD, CMP #### [facility] [address] [place], [place] [id number] eGFRNAA 77 mL/min/1.73m2 Normal >60 [facility] Comment on above: Performed By: #### F ERR, CBCAD, LIPD, CMP #### [facility] [address] [place], [place] [id number] Globulin (S) [Mass/Vol] 2.1 g/dL Normal 1.9-3.7 [facility] Comment on above: Performed By: #### F ERR, CBCAD, LIPD, CMP #### [facility] [address] [place], [place] [id number] Glucose [Mass/Vol] 126 mg/dL High 65-99 [facility] Comment on above: Result Comment: For FASTING Glucose --- ADA reference ranges: Normal 65-99 mg/dl Prediabetes 100-125 Diabetes >/= 126 Performed By: #### F ERR, CBCAD, LIPD, CMP #### [facility] [address] [place], [place] [id number] Potassium [Moles/Vol] 3.7 mmol/L Normal 3.5-5.5 [facility] Specialist Comment on above: Performed By: #### F ERR, CBCAD, LIPD, CMP #### [facility] [address] [place], [place] [id number] Protein [Mass/Vol] 6.2 g/dL Normal 6.1-8.1 [facility] [place] [employer] Comment on above: Performed By: #### F ERR, CBCAD, LIPD, CMP #### [facility] [address] [place], [place] [id number] Sodium [Moles/Vol] 141 mmol/L Normal 135-146 [facility] [place] [employer] [facility] Comment on above: Performed By: #### F ERR, CBCAD, LIPD, CMP #### [facility] [address] [place], [place] [id number] Urea nitrogen [Mass/Vol] 15 mg/dL Normal 7-25 [facility] [employer] Comment on above: Performed By: #### F ERR, CBCAD, LIPD, CMP #### [facility] [address] [place], [place] [id number] Ferritinon 07-20-2021 FERR 361.3 ng/mL High 15.0-150.0 [facility] [employer] Comment on above: Performed By: #### F ERR, CBCAD, LIPD, CMP #### [facility] [address] [place], [place] [id number] Lipid Panelon 07-20-2021 Cholesterol [Mass/Vol] 161 mg/dL Normal 125-200 [facility] Comment on above: Result Comment: Low risk < 200mg/dL Borderline risk 201-239 mg/dl High risk > or equal to 240 Performed By: #### F ERR, CBCAD, LIPD, CMP #### [facility] [address] [place], [place] [id number] Cholesterol in HDL [Mass/Vol] 36 mg/dL Low >40 [facility] [employer] Comment on above: Result Comment: High Cardiovascular Risk HDL <40 mg/dL Low Cardiovascular Risk HDL > or equal to 60 mg/dl Performed By: #### F ERR, CBCAD, LIPD, CMP #### [facility] [address] [place], [place] [id number] Cholesterol in LDL [Mass/Vol] 87 mg/dL Normal [facility] [employer] Comment on above: Result Comment: LDL ATP III CLASSIFICATION LDL less than 100 mg/dl Optimal LDL 100-129 mg/dl Near or above optimal LDL 130-159 Borderline high LDL 160-189 High LDL greater than 189 mg/dl Very High Performed By: #### F ERR, CBCAD, LIPD, CMP #### [facility] [address] [place], [place] [id number] Cholesterol in VLDL [Mass/Vol] 38 mg/dL Normal [facility] Specialist Comment on above: Performed By: #### F ERR, CBCAD, LIPD, CMP #### [facility] [address] [place], [place] [id number] Cholesterol.total/Chol esterol in HDL [Mass ratio] 4 {ratio} Normal [facility] Specialist Comment on above: Performed By: #### F ERR, CBCAD, LIPD, CMP #### [facility] [address] [facility] [place] [id number] Triglyceride [Mass/Vol] 191 mg/dL High 30-150 [facility] [employer] Comment on above: Result Comment: TRIG ATPIII CLASSIFICATIONS TRIG less than 150 mg/dl Normal TRIG 150-199 mg/dl Borderline High TRIG 200-500 mg/dl High TRIG greather than 500 mg/dl Very High Performed By: #### F ERR, CBCAD, LIPD, CMP #### [facility] [address], [place] [id number] [facility]20 SARS-CoV-2 (COVID-19) RNA ZAINAB+probe Ql (Unsp spec) Detected Critically abnormal NOT DETECTED [facility] Comment on above: Result Comment: This test is not yet approved or cleared by the [place] FDA. When there are no FDA-approved or cleared tests available, and other criteria are met, FDA can make tests available under an emergency access mechanism called an Emergency Use Authorization (EUA). The EUA for this test is supported by the [employer] of Health and Human Service's (HHS's) declaration [...] longer be used). Performed By: #### C VDTB #### [facility] [address] [place], [place] [address] Dr. Liat Walker Free T3on 06-02-2021 FT3 3.56 pg/mL Normal 2.00-4.40 [facility] Comment on above: Performed By: #### F T4, TSH, FT3 #### [facility] [address] [place], [place] [id number] Free T4on 06-02-2021 Free T4 [Mass/Vol] 0.80 ng/dL Normal 0.80-1.80 [facility] Comment on above: Performed By: #### F T4, TSH, FT3 #### [facility] [address] [place], [place] [id number] Q - T3 TOTALon 06-02-2021 T3, TOTAL 123 ng/dL Normal 76-181 [facility] Comment on above: Order Comment: [facility] performed at: [facility], [employer] [facility], [address] [place] [address], [address] [place] [address], [id number], [employer] Teacher: Phil Gilbert MDQuest Collection Date/Time: [id number] Results Received Date/Time: [id number] Reported Date/Time: Performed By: #### F T4, TSH, FT3 #### [facility] [address] [place], [place] [id number] Q - T3,REVERSE,LC/MS/MSon T3 REVERSE, LC/MS/MS 10 ng/dL Normal 8-25 [facility] Comment on above: Order Comment: [facility] at[facility] [employer], [address], [place], [place], , [employer] Science Teacher: Vasquez Morales M.D.,PhDQuest Collection Date/Time: [id number] Results Received Date/Time: [id number] Reported Date/Time: Result Comment: This test was developed and its analytical performance characteristics have been determined by [employer] [place], [place]. It has not been cleared or approved by the [place]. Food and Drug Administration. This assay has been validated pursuant to the CLIA regulations and is used for clinical purposes. Performed By: #### F T4, TSH, FT3 #### [facility] [address] [place], [place] [id number] TSHon 06-02-2021 TSH 2.580 uIU/mL Normal 0.400-4.500 [facility] [employer] Comment on above: Performed By: #### F T4, TSH, FT3 #### [facility] [address] [place], [place] [id number] Vital Signs Date Time Vital Sign Value Performing Clinician Facility 02-20-2024 08:15-0400 Blood Pressure Location Tyala Lue [facility] 02-20-2024 08:15-0400 Diastolic blood pressure 72 mm[Hg] Tayla Lue [facility] 02-20-2024 08:15-0400 Heart rate 78 /min Tayla Lue [facility] 02-20-2024 08:15-0400 Systolic blood pressure 128 mm[Hg] Tayla Lue [facility] 09-03-2023 11:43-0400 Body height 157.48 cm [facility] 09-03-2023 11:43-0400 Body mass index (BMI) [Ratio] 34.7 kg/m2 [place] 09-03-2023 11:43-0400 Body temperature 97.1 [degF] [facility] 09-03-2023 11:43-0400 Body weight 86.18 kg [facility] 09-03-2023 11:43-0400 Heart rate 75 /min [facility] 09-03-2023 11:43-0400 Respiratory rate 18 /min [facility] 09-03-2023 11:43-0400 SaO2% (BldA) [Mass fraction] 95 % [place] 08-08-2023 10:20-0500 Body height 157.48 cm [facility] 08-08-2023 10:20-0500 Body mass index (BMI) [Ratio] 35.2 kg/m2 [place] 08-08-2023 10:20-0500 Body temperature 97.5 [degF] [facility] 08-08-2023 10:20-0500 Body weight 87.23 kg [facility] 08-08-2023 10:20-0500 Diastolic blood pressure 80 mm[Hg] [place] 08-08-2023 10:20-0500 Heart rate 73 /min [facility] 08-08-2023 10:20-0500 Respiratory rate 16 /min [facility] 08-08-2023 10:20-0500 SaO2% (BldA) [Mass fraction] 98 % [place] 08-08-2023 10:20-0500 Systolic blood pressure 124 mm[Hg] [place] 07-13-2023 16:45-0500 Body height 157.48 cm Kylah Galeana Other [place] 07-13-2023 16:45-0500 Body mass index (BMI) [Ratio] 35.66 kg/m2 Kylah Galeana Other [facility] [employer] Other 07-13-2023 16:45-0500 Body temperature 98.8 [degF] Kylah Galeana Other [employer] Other 07-13-2023 16:45-0500 Body weight 88.45 kg Kylah Galeana Other [place] 07-13-2023 16:45-0500 Diastolic blood pressure 80 mm[Hg] Kylah Lissett Other [place] 07-13-2023 16:45-0500 Respiratory rate 18 /min Kylah Lissett Other [employer] Other 07-13-2023 16:45-0500 SaO2% (BldA) [Mass fraction] 96 % Kylah Lissett Other [employer] Other 07-13-2023 16:45-0500 Systolic blood pressure 149 mm[Hg] Kylah Lissett Other [place] 05-03-2022 16:05-0500 Body height 156.84 cm Kylah Lissett Other [employer] Other 05-03-2022 16:05-0500 Body mass index (BMI) [Ratio] 34.29 kg/m2 Kylah Lissett Other [employer] Other 05-03-2022 16:05-0500 Body temperature 96.8 [degF] Kylah Lissett Other [employer] Other 05-03-2022 16:05-0500 Body weight 84.37 kg Kylah Lissett Other [employer] Other 05-03-2022 16:05-0500 Respiratory rate 18 /min Kylah Lissett Other [employer] Other 05-03-2022 16:05-0500 SaO2% (BldA) [Mass fraction] 96 % Kylah Lissett Other [employer] Other Encounters Encounter Date Encounter Type Care Provider Facility Start: 02-20-2024 End: 02-20-2024 ambulatory Tayla Carson Facility:[facility] Start: 02-20-2024 End: 02-20-2024 Lab Drop off Tayla Carson [facility] Start: 02-20-2024 End: 02-20-2024 ambulatory Tayla Carson Facility:[facility] Start: 02-20-2024 End: 02-20-2024 Patient encounter procedure Tayla Carson [facility] Start: 01-28-2024 ambulatory [facility] y:[facility] Start: 09-03-2023 End: 09-03-2023 ambulatory [facility] Work Phone: Start: 09-03-2023 End: 09-03-2023 Patient encounter procedure Replaced By [facility] Work Phone: Start: 08-08-2023 End: 08-08-2023 ambulatory [facility] Work Phone: Start: 08-08-2023 End: 08-08-2023 Patient encounter procedure Replaced By [facility] Work Phone: Start: 07-13-2023 End: 07-13-2023 ambulatory Kylah Galeana Other [employer] Other Start: 07-13-2023 Office outpatient vi sit 15 minutes Kylahkarlie Galeana [facility] Start: 07-13-2023 End: 07-13-2023 Patient encounter procedure Replaced By [facility]- Start: 04-20-2023 End: 04-20-2023 ambulatory Singh WEIDMAN Facility:[facility] Start: 05-03-2022 End: 05-03-2022 ambulatory Kylah Galeana Other [employer] Other Start: 05-03-2022 Office outpatient ne w 20 minutes Kylah Galeana [facility] Start: 06-17-2021 End: 06-17-[address] CECIL KNOX Facility:[facility] Procedures Date Procedure Procedure Detail Performing Clinician Start: 08-08-2023 COVID/Influenza Antigen (POC) Plan of Treatment Date Care Activity Detail Author Start: 03-19-2024 ambulatory Ambulatory Facility:[facility] Payers Date Payer Category Payer Medicare [id number] 2. [id number] 2023 Unknown [id number] 1957 Unknown [id number] 1955 Unknown [id number] 1955 Unknown [id number] 1955 Unknown [id number] Blue Cross Blue Shield [id number] Self-pay Self Pay [id number] Unknown MMO [id number] Social History Date Type Detail Facility Unknown if ever smoked [employer] Other Sex Assigned At [facility] Start: 1955 Sex Assigned At Female F [facility] Start: 09-03-2023 End: 02-20-2024 Tobacco smoking status NHIS Never smoked tobacco (finding) [place] Tobacco smoking status Never [facility] Functional Status Date Assessment Result Facility 02-20-2024 Functional Status N/A [facility] Clinical Notes 05-03-2022 to 09-04-2024 Note Date & Type Note Facility 02-20-2024 Evaluation + Plan note Diagnostic Tests PendingUrine Culture 02/20/24 [facility] 02-20-2024 Hospital Discharg e instructions Patient Education 02/20/2024 09:00:02 Laser Therapy for Kidney Stones, Care After Laser Therapy for Kidney Stones, Care After After laser therapy for kidney stones, it is common to have: Pain. A burning feeling when you pee (urinate). Small amounts of blood in your pee (urine). A need to pee a lot. Parts of the kidney stone in your pee. Mild discomfort in your back when you pee. You may have this if you had a small mesh tube (stent) placed during the procedure. Follow these instructions at home: Medicines Take pwaq-lrc-tjtuaou and prescription medicines only as told by your health care provider. If you were prescribed antibiotics, take them as told by your provider. Do not stop using the antibiotic even if you start to feel better. Ask your provider if the medicine prescribed to you: ?Requires you to avoid driving or using machinery. ?Can cause constipation. You may need to take these actions to prevent or treat constipation: ?Drink enough fluid to keep your pee pale yellow. ?Take nxem-hzc-rreejpo or prescription medicines. ?Eat foods that are high in fiber, such as beans, whole grains, and fresh fruits and vegetables. ?Limit foods that are high in fat and processed sugars, such as fried or sweet foods. Activity If you were given a sedative during the procedure, it can affect you for several hours. Do not drive or operate machinery until your provider says that it is safe. Return to your normal activities as told by your provider. Ask your provider what activities are safe for you. General instructions Your provider may recommend that you drink a lot of water for a few hours after your procedure. If you have heart or kidney disease, ask your provider how much you should drink. You may be asked to strain your pee to collect any stone pieces that you pass. Your provider may have these pieces tested. Do not take baths, swim, or use a hot tub until your provider approves. Ask your provider if you may take warm baths to soothe the burning. Keep all follow-up visits. If you have a stent, you will need to go back to your provider to have it removed. Your provider may give you more instructions. Make sure you know what you can and cannot do. Contact a health care provider if: You have pain or a burning feeling that lasts for more than 2 days. You feel nauseous. You vomit more and more often. You have trouble peeing. You have pain that gets worse or does not get better with medicine. You have a fever or shaking chills. Get help right away if: You cannot pee, even when your bladder feels full. You faint. You have chest pain, shortness of breath, or cough up blood. You have: ?Bright red blood or blood clots in your pee. ?Severe pain or discomfort. ?Pain in your abdomen. ?Swelling in your legs. These symptoms may be an emergency. Get help right away. Call 911. Do not wait to see if the symptoms will go away. Do not drive yourself to the hospital. This information is not intended to replace advice given to you by your health care provider. Make sure you discuss any questions you have with your health care provider. Document Revised: 02/02/2023 Document Reviewed: 02/02/2023 [employer] Patient Education 2023 [employer]. 02/20/2024 09:00:01 Laser Therapy for Kidney Stones Laser Therapy for Kidney Stones Laser therapy for kidney stones is a procedure to break up rock-like masses that form inside the kidneys (kidney stones). It is done using a device that beams a strong light (laser) on the kidney stones. This breaks the stones up into small pieces. These small pieces may leave your body when you pee (urinate) or may be taken out during the procedure. You may need laser therapy if you have kidney stones that are painful or that are stopping you from being able to pee. Tell a health care provider about: Any allergies you have. All medicines you are taking, including vitamins, herbs, eye drops, creams, and ptex-kvj-ngmlbkx medicines. Any problems you or family members have had with anesthesia. Any bleeding problems you have. Any surgeries you have had. Any medical conditions you have. Whether you are or may be . What are the risks? Your health care provider will talk with you about risks. These may include: Infection. Bleeding. Allergic reactions to medicines. Damage to: ?The part of your body that drains pee (urine) from the bladder (urethra). ?The bladder. ?The tube that connects the bladder to the kidneys (ureter). Urinary tract infection (UTI). Urethral stricture. This is when the urethra is narrowed by scarring. Trouble peeing. Blockage of the kidney. This may be caused by a piece of kidney stone. What happens before the procedure? When to stop eating and drinking Follow instructions from your provider about what you may eat and drink. These may include: 8 hours before the procedure ?Stop eating most foods. Do not eat meat, fried foods, or fatty foods. ?Eat only light foods, such as toast or crackers. ?All liquids are okay except energy drinks and alcohol. 6 hours before the procedure ?Stop eating. ?Drink only clear liquids, such as water, clear fruit juice, black coffee, plain tea, and sports drinks. ?Do not drink energy drinks or alcohol. 2 hours before the procedure ?Stop drinking all liquids. ?You may be allowed to take medicines with small sips of water. If you do not follow your provider's instructions, your procedure may be delayed or canceled. Medicines Ask your provider about: ?Changing or stopping your regular medicines. These include any diabetes medicines or blood thinners you take. ?Taking medicines such as aspirin and ibuprofen. These medicines can thin your blood. Do not take them unless your provider tells you to. ?Taking ihhu-gvi-vvjmqbq medicines, vitamins, herbs, and supplements. Tests You may have a physical exam before the procedure. You may also have tests done. These may include: ?Imaging tests. ?Blood or pee tests. Surgery safety Ask your provider: ?How your surgery site will be marked. ?What steps will be taken to help prevent infection. These steps may include: ?Removing hair at the surgery site. ?Washing skin with a soap that kills germs. ?Taking antibiotics. General instructions Do not use any products that contain nicotine or tobacco for at least 4 weeks before the procedure. These products include cigarettes, chewing tobacco, and vaping devices, such as e-cigarettes. If you need help quitting, ask your provider. If you will be going home right after the procedure, plan to have a responsible adult: ?Take you home from the hospital or clinic. You will not be allowed to drive. ?Care for you for the time you are told. What happens during the procedure? An IV will be inserted into one of your veins. You will be given: ?A sedative. This helps you relax. ?Anesthesia. This keeps you from feeling pain. It will make you fall asleep for surgery. A tool with a camera on the end (ureteroscope) will be put into your urethra. It will be moved through your bladder to your kidney. It will send pictures to a screen in the operating room. This will show what parts of your kidney need to be treated. A tube will be put through the ureteroscope. It will be moved into your kidney. The laser device will be put into your kidney through the tube. The laser will be used to break up the kidney stones. A tool with a tiny wire basket may be put through the tube into your kidney. This can help remove the small pieces of the kidney stone. A small mesh tube (stent) may be placed to allow your kidney to drain. The tube and ureteroscope will be taken out at the end of the surgery. The procedure may vary among providers and hospitals. What happens after the procedure? Your blood pressure, heart rate, breathing rate, and blood oxygen level will be monitored until you leave the hospital or clinic. If you had a stent placed, it may have a string that will be secured to your skin. This helps your provider remove the stent. You may be given a strainer to collect any stone pieces that you pass in your pee. Your provider may have these tested. This information is not intended to replace advice given to you by your health care provider. Make sure you discuss any questions you have with your health care provider. Document Revised: 02/02/2023 Document Reviewed: 02/02/2023 [employer] Patient Education 2023 [employer]. Follow Up Care 01/29/2024 10:22:50 With:Alli CASTILLO, LESTER Stapleton, URO Address: [address], [place] [address] [phone] When: Unknown [facility] 02-20-2024 Note Patient Education Nephrology Laser Therapy for Kidney Stones, Care After After laser therapy for kidney stones, it is common to have: ? Pain. ? A burning feeling when you pee (urinate). ? Small amounts of blood in your pee (urine). ? A need to pee a lot. ? Parts of the kidney stone in your pee. ? Mild discomfort in your back when you pee. You may have this if you had a small mesh tube (stent) placed during the procedure. Follow these instructions at home: Medicines ? Take tvys-sdt-ohnnzhp and prescription medicines only as told by your health care provider. ? If you were prescribed antibiotics, take them as told by your provider. Do not stop using the antibiotic even if you start to feel better. ? Ask your provider if the medicine prescribed to you: ? Requires you to avoid driving or using machinery. ? Can cause constipation. You may need to take these actions to prevent or treat constipation: ? Drink enough fluid to keep your pee pale yellow. ? Take dqwd-eqo-sxzpkkk or prescription medicines. ? Eat foods that are high in fiber, such as beans, whole grains, and fresh fruits and vegetables. ? Limit foods that are high in fat and processed sugars, such as fried or sweet foods. Activity ? If you were given a sedative during the procedure, it can affect you for several hours. Do not drive or operate machinery until your provider says that it is safe. ? Return to your normal activities as told by your provider. Ask your provider what activities are safe for you. General instructions ? Your provider may recommend that you drink a lot of water for a few hours after your procedure. If you have heart or kidney disease, ask your provider how much you should drink. ? You may be asked to strain your pee to collect any stone pieces that you pass. Your provider may have these pieces tested. ? Do not take baths, swim, or use a hot tub until your provider approves. Ask your provider if you may take warm baths to soothe the burning. ? Keep all follow-up visits. If you have a stent, you will need to go back to your provider to have it removed. Your provider may give you more instructions. Make sure you know what you can and cannot do. Contact a health care provider if: ? You have pain or a burning feeling that lasts for more than 2 days. ? You feel nauseous. ? You vomit more and more often. ? You have trouble peeing. ? You have pain that gets worse or does not get better with medicine. ? You have a fever or shaking chills. Get help right away if: ? You cannot pee, even when your bladder feels full. ? You faint. ? You have chest pain, shortness of breath, or cough up blood. ? You have: ? Bright red blood or blood clots in your pee. ? Severe pain or discomfort. ? Pain in your abdomen. ? Swelling in your legs. These symptoms may be an emergency. Get help right away. Call 911. ? Do not wait to see if the symptoms will go away. ? Do not drive yourself to the hospital. This information is not intended to replace advice given to you by your health care provider. Make sure you discuss any questions you have with your health care provider. Document Revised: 02/02/2023 Document Reviewed: 02/02/2023 [employer] Patient Education ? 2023 [employer]. Laser Therapy for Kidney Stones Laser therapy for kidney stones is a procedure to break up rock-like masses that form inside the kidneys (kidney stones). It is done using a device that beams a strong light (laser) on the kidney stones. This breaks the stones up into small pieces. These small pieces may leave your body when you pee (urinate) or may be taken out during the procedure. You may need laser therapy if you have kidney stones that are painful or that are stopping you from being able to pee. Tell a health care provider about: ? Any allergies you have. ? All medicines you are taking, including vitamins, herbs, eye drops, creams, and gdfg-idc-lcvhmpu medicines. ? Any problems you or family members have had with anesthesia. ? Any bleeding problems you have. ? Any surgeries you have had. ? Any medical conditions you have. ? Whether you are or may be . What are the risks? Your health care provider will talk with you about risks. These may include: ? Infection. ? Bleeding. ? Allergic reactions to medicines. ? Damage to: ? The part of your body that drains pee (urine) from the bladder (urethra). ? The bladder. ? The tube that connects the bladder to the kidneys (ureter). ? Urinary tract infection (UTI). ? Urethral stricture. This is when the urethra is narrowed by scarring. ? Trouble peeing. ? Blockage of the kidney. This may be caused by a piece of kidney stone. What happens before the procedure? When to stop eating and drinking Follow instructions from your provider about what you may eat and drink. These may include: ? 8 hours before the procedure ? Stop eating most foods. Do not e (more content not included)... [facility] 07-13-2023 Evaluation note Encounter Date Diagnosis Assessment [...] Z20.822) Jun, Sore throat (ICD-10 - J02.9) [facility] Other 11-16-2022 Evaluation note* Encounter Date Diagnosis Assessment Notes Treatment Notes Treatment Clinical Notes Apr, Acute sinusitis, recurrence not specified, [...] unspecified otitis media type (ICD-10 - H66.92) [facility] Other Evaluation + Plan note No data available for this section [facility] evaluation note* Diagnosis Onset Date Resolution Status Contact with and (suspected) exposure to covid-19 acute COVID-19 acute [facility] Work Phone: Evaluation note* Diagnosis Onset Date Resolution Status Contact with and (suspected) exposure to covid-19 acute COVID-19 acute Viral URI with cough acute Contact with or exposure to other viral diseases noneactive [facility] Work Phone: [facility] Narrative - Reported* Type Description Date Medical History Hypothyroidism Medical History asthma Medical History seasonal allergies Medical History haris- manuel Surgical History tubal ligation Surgical History appendectomy Surgical History left oophorectomy Surgical History cholecystectomy Hospitalization History multiple stays for asthm [facility] Narrative - Reported* Type Description Date Medical History Hypothyroidism Medical History asthma Medical History seasonal allergies Medical History haris- manuel Surgical History tubal ligation Surgical History appendectomy Surgical History left oophorectomy Surgical History cholecystectomy Surgical History hernia Hospitalization History multiple stays for asthm [facility] Other Hospital Discharge instructions No data available for this section [facility] Progress note No data available for this section [facility] Summary Purpose Family History No Family History [...] and content) DATE CREATED AUTHOR 06/24/2021 [facility] DATE CREATED AUTHOR AUTHOR'S ORGANIZ ATION 10/13/2021 [facility] Specialist DATE CREATED AUTHOR AUTHOR'S ORGANIZ ATION [facility]/2024 [facility] DATE CREATED AUTHOR AUTHOR'S ORGANIZ ATION 02/24/2024 [facility] DATE CREATED AUTHOR AUTHOR'S ORGANIZ ATION 02/26/2024 [facility] REASON FOR VISIT (unrecogniz ed section and [...] BE BASED ON THE PRIMARY CLINICAL RECORDS. A vida é feita de [place] [facility]. provides no warranty or guarantee of the accuracy or completeness of information in this document.
[2024-03-19] MEDS: LACTATED RINGER'S SOLUTION 1,000 ML 50 ML IV ×2 (11:55→14:29)
[2024-03-19] MEDS: CIPROFLOXACIN IN 5 % DEXTROSE 400 MG/200 ML PREMIX 200 MG IV (13:04)
--- NOTE | 2024-03-19 14:00 | P.URON_ITS ---
Urology Surgery Operative Note Operative Note Procedure Date: 03/19/24 Time Out Performed: yes Pre-op Diagnosis: Right kidney stone Post-op Diagnosis: same as pre-op Procedures performed: 1. Cystoscopy, right ureteral stent placement 2. Right extracorporeal shockwave lithotripsy Anesthesia: General-LMA (Dr. Antonio) Primary Surgeon: Tayla Carson Complications: none Estimated blood loss (mL): 0 Findings: Radiopaque large right renal pelvis stone underwent 3000 shocks, fragmented very well. Right stent placed. Specimens: none Drains: 4.9Fr x 22-32 cm JJ right ureteral stent Indications for Procedures: The patient was evaluated in clinic and deemed a candidate for right extracorporeal shock wave lithotripsy with stent placement due to size of stone: 1.8x1.6 cm right renal pelvis stone. 7 mm right mid kidney stone not to be addressed at this time. Risks were discussed to include but not limited to bleeding, pain, infection, damage to surrounding structures, inability to treat the stone, residual fragments, obstruction and need for additional procedures. The patient understands the stent is not permanent and needs to be removed or exchanged within 3 months to prevent encrustation, infection, invasive procedures and/or permanent renal damage. Detailed description of Procedure: After informed consent was obtained, the patient was brought to the operating room and placed on the lithotripsy bed in supine position. Sequential compression devices were placed on bilateral lower extremities. The patient received the appropriate dose of preoperative IV antibiotics and general anesthesia LMA was induced. An operative time out was performed confirming the patient's identity, procedure, laterality and safety checks. The patient was positioned with the Siemens Modularis Lithostar lithotripter head on the right flank. The stone was triangulated using fluoroscopy. A total of 3000 shocks were provided and the stone was seen to fragment well. Meanwhile, legs were placed in modified lithotomy position, prepped and draped in the usual fashion for cystoscopy. A 22 Irish rigid cystoscope with 30 degree lens into the patient's urethra and bladder without difficulty. There were no bladder tumors, lesions, stones or foreign bodies. Bilateral ureteral orifices were orthotopic and patent. I turned my attention to the right ureteral orifice and a sensor wire was inserted up to the renal pelvis, bypassing the radiopaque stone. A 4.9Fr x 22-32cm JJ variable length ureteral stent was advanced over the wire, noting adequate curl in the renal pelvis and bladder on fluoroscopic and direct visualization. The bladder was irrigated until clear and inspected one final time to ensure adequate position of stent and no undue trauma to the bladder was done. The bladder was drained and cystoscope was removed. The patient tolerated the procedure well without complication. The patient was awake mariella from anesthesia and sent to the PACU in stable condition. Plan: Discharge home with strainer and tamsulosin. Follow up in 2-3 weeks with KUB to determine repeat R ESWL if stone responded well vs right ureteroscopy, laser lithotripsy/stone extraction, stent exchange.
--- NOTE | 2024-03-19 15:06 | PC.NURSE ---
1500: pt ambulates to bathroom with minimal assistance,pt voids without difficulty. urine bloody stone sediment noted no pieces large enough for collection.
== END 2024-03-19 15:12 | disposition home or self-care (01) ==
PROVIDERS: PCP Nurse Practitioner Family; Visit Provider Urology
PROC: (CPT 873; principal; 2024-03-19 12:30)
DX: N20.0 Calculus of kidney (principal); Z87.891 Personal history of nicotine dependence; Z87.442 Personal history of urinary calculi; R31.0 Gross hematuria; Z87.440 Personal history of urinary (tract) infections; Z90.49 Acquired absence of other specified parts of digestive tract; Z98.51 Tubal ligation status; J45.909 Unspecified asthma, uncomplicated; E03.9 Hypothyroidism, unspecified
CPT/HCPCS: 50590; 52332; 74018; J0744; J2250; J2405; J2704; J3010

== ENCOUNTER 2024-04-03 09:16 | Outpatient (OUT) | payer BC, MEDICARE, SELFPAY ==
--- OUTSIDE RECORDS SUMMARY | 2024-04-03 09:23 | XMS_ITS | CCD ---
Author Organization [facility] Care Team Providers Care Ladle Car Operator Name Role Phone DR CECIL KNOX Attending Unavailable ABILIO, DR JACOB Consulting Unavailable DR CECIL KNOX Admitting Unavailable Kylah Galeana Unavailable LALA CASTILLO Primary Care Physician [phone] Singh HARRIS Attending Unavailable Tayla Carson Attending Unavailable Tayla Carson Attending Unavailable Tayla Carson Admitting Unavailable Tayla Carson Attending Unavailable Tayla Carson Referring Unavailable ALBERTA SHARP Attending Unavailable LALA CASTILLO Referring Unavailable Unallocated MD, Noms Provider Primary Care Provi yue Allergies Allergy Classification Reported Allergen(s) Allergy Type Date of Onset Reaction(s) Facility (2 sources) Cephalexin Drug Allergy itching on her head [facility] [employer] Other (9 sources) diazePAM; Translations: [diazepam] Drug Allergy 08-08-19 hives, Eruption of skin (disorder) [facility] (2 sources) levothyroxine Drug Allergy rash [facility] [employer] Other (4 sources) Penicillin G Drug Allergy 08-08-19 24 hives, SOB [facility] (4 sources) dye for testing Propensity to adverse reactions 07-16-19 anaphylaxis [facility] (7 sources) Cephalexin; Translations: [Cephalexin] Drug Allergy 08-08-19 24 Eruption of skin (disorder) [facility] (2 sources) levothyroxine Drug Allergy 08-08-19 24 rash [facility] (5 sources) Amoxicillin; Translations: [amoxicillin] Drug Allergy Eruption of skin (disorder) [facility] (5 sources) Contrast media; Translations: [contrast media (iodine-based)] Propensity to adverse reactions to drug Anaphylaxis (disorder) [facility] (7 sources) Ibuprofen; Translations: [ibuprofen] Drug Allergy 03-27-20 Eruption of skin (disorder), Other [facility] (5 sources) levothyroxine; Translations: [levothyroxine] Drug Allergy Eruption of skin (disorder) [facility] (7 sources) Penicillins; Translations: [penicillins] Propensity to adverse reactions to drug 03-27-20 Eruption of skin (disorder), Rash [facility] (2 sources) Diazepam Propensity to adverse reactions 03-27-20 Other [facility] (2 sources) Iodine Drug Allergy 03-27-20 Hives [facility] Medications Current Medications Medication Drug Class(es) Dates Sig (Normalized) Sig (Original) ABDEK oral capsule (3 sources) Start: 02-20-2024 take 1 capsule by mouth once daily ABDEK oral capsule cap(s), Oral, Daily, Refill(s) 0 Start Date: 02/20/24 Status: Ordered Albuterol (Eqv-ProAir HFA) 90 mcg/inh inhalation aerosol (3 sources) Start: 02-20-2024 Albuterol (Eqv-ProAir HFA) 90 [...] times a day Jun, Active K2 Liquid (3 sources) Start: 02-20-2024 take 1 ug by mouth once daily K2 Liquid mcg, Oral, Daily, Refills(s) 0 Start Date: 02/20/24 Status: Ordered lisinopril 40 mg oral tablet (5 sources) Angiotensin Converting Enzyme Inhibitor Start: 02-20-2024 take 1 tablet by mouth once daily lisinopril 40 mg Tab 40 mg = 1 tab(s), Oral, Daily, # 30 tab(s), Refills(s) 0 Start Date: 02/20/24 Status: Ordered Start: 08-08-2023 Lisinopril Act zamzam MG PO August 08, 2023 1:00am Start: 08-08-2023 Lisinopril Act zamzam MG PO August 08, 2023 12:00am magnesium gluconate 250 mg oral tablet (3 sources) Start: 02-20-2024 take 1 mg by [...] Jun, Active topiramate 50 mg oral tablet (4 sources) Start: 02-20-2024 take 1 tablet by mouth twice daily topiramate 50 mg Tab 50 mg = 1 tab(s), Oral, BID, # 180 tab(s), Refills(s) 0 Start Date: 02/20/24 Status: Ordered Start: 09-03-2023 Topiramate Act zamzam MG PO September 03, 2023 12:00am vitamin B12 (3 sources) Vitamin B12 Start: 02-20-2024 Vitamin B12 Re fills(s) 0 Start Date: 02/20/24 Status: Ordered Completed/Discontinued Medications Medication Drug Class(es) Dates Sig (Normalized) Sig (Original) albuterol 0.83 mg/ml inhalation solution (6 sources) beta2-Adrenergic Agonist Start: 02-20-2024 take 1 [...] 4 times a day prn Jun, Active take 2 puff(s) by in halation every four hours for wheezing albuterol HFA 90 mcg/act inhaler Inhale 2 puffs every 4 (four) hours if needed for wheezing Active amLODIPine 10 mg oral tablet (8 sources) Dihydropyridine Calcium Channel Jennie Start: 02-20-2024 take 1 tablet by mouth once daily amLODIPine 10 mg Tab 10 mg = 1 tab(s), TAKE 1 TABLET BY MOUTH ONCE DAILY Start Date: 02/20/24 Status: Ordered Start: 08-08-2023 Amlodipine Act zamzam MG PO August 08, 2023 1:00am Start: 08-08-2023 Amlodipine Act zamzam MG PO August 08, 2023 12:00am doxycycline hyclate 100 mg oral tablet (2 sources) Tetracycline-class Drug Start: 05-03-2022 take 1 tablet by mouth every twelve hours Doxycycline Hyclate 100 MG 1 tablet Orally Twice a day for 10 day(s) Apr, Not-Taking/PRN ezetimibe 10 mg oral tablet (8 sources) Dietary Cholesterol Absorption Inhibitor Start: 02-20-2024 take 1 tablet by mouth once daily at bedtime ezetimibe 10 mg Tab 10 mg = 1 tab(s), take 1 tablet by mouth once daily at bedtime for 90 DAYS Start Date: 02/20/24 Status: Ordered Start: 08-08-2023 Ezetimibe Acti ve MG PO August 08, 2023 1:00am fluticasone propionate 0.05 mg/actuat metered dose nasal [...] Active levothyroxine sodium 0.088 mg oral capsule (8 sources) l-Thyroxine Start: 02-20-2024 take 1 capsule by mouth once daily in the morning levothyroxine 88 mcg (0.088 mg) oral capsule 88 mcg = 1 cap(s), take 1 capsule by mouth every morning Start Date: 02/20/24 Status: Ordered Start: 08-08-2023 Levothyroxine Active MCG PO August 08, 2023 1:00am Start: 08-08-2023 Levothyroxine Active MCG PO August 08, 2023 12:00am levothyroxine (T irosint) 88 MCG capsule Take by mouth Daily before meals Active sertraline 100 mg oral tablet (7 sources) Serotonin Reuptake Inhibitor Start: 02-20-2024 take 1 tablet by mouth once daily sertraline 100 mg Tab 100 mg = 1 tab(s), take 1 tablet by mouth once daily Start Date: 02/20/24 Status: Ordered Start: 08-08-2023 Sertraline Act zamzam MG PO August 08, 2023 1:00am Problems Active Problems Problem Classification Problem Date Documented Da te Episodic/Chronic Abdominal pain (4 sources) Abdominal pain; Translations: [Unspecified abdominal pain] Onset: 02-20-2024 Episodic Asthma (2 sources) Exacerbation of mild persistent asthma; Translations: [Mild persistent asthma with (acute) exacerbation] Chronic Blindness and vision defects (2 sources) Visual disturbance; Translations: [Unspecified visual disturbance] 03-27-2024 Episodic Calculus of urinary tract (4 sources) Kidney stone; Translations: [Calculus of kidney] Onset: 02-20-2024 Episodic Chronic obstructive pulmonary disease and bronchiectasis (1 source) Bronchitis, not specified as acute or chronic Episodic Genitourinary symptoms and ill-defined conditions (8 sources) Blood in urine; Translations: [Gross hematuria] Onset: 02-20-2024 Episodic Immunizations and screening for infectious disease (5 sources) Contact with or exposure to other viral diseases; Translations: [Contact with or suspected exposure to severe acute respiratory syndrome coronavirus 2] 08-08-2023 Episodic Other lower respiratory disease (1 source) Personal history of other diseases of the respiratory system Episodic Other nervous system disorders (2 sources) Ataxia; Translations: [Ataxia, unspecified] 03-27-2024 Episodic Other nervous system disorders (2 sources) Tremor; Translations: [Tremor, unspecified] 03-27-2024 Episodic Other upper respiratory infections (5 sources) Acute sinusitis, unspecified; Translations: [Acute pharyngitis, unspecified] Episodic Otitis media and related conditions (1 source) Otitis media, unspecified, left ear Episodic Screening and history of mental health and substance abuse codes (4 sources) H/O: Disorder; Translations: [Personal history of [...] Locations R1: This test was performed at: [facility], [address] [place] [address], [id number] , , Normal [facility] Comment on above: Performed By: #### 2 [id number] #### [facility] [address] [place] [address] Ambulatory Visit Summaryon 0 02-20-2024 Ambulatory Visit Summary Ambulatory Visit Summary DEV PHIPPS :1955 Visit Date:02/20/2024 Ambulatory Visit Instructions Your Diagnosis Kidney stones Gross hematuria Right flank pain History of UTI Former smoker Your Care Team Attending Physician - Tayla Carson MD Primary Care Physician - LALA CASTILLO CNP This Is Your Medications List Contact [...] Following Appointments Follow Up with Alli CASTILLO, Tayla Vallejo, URL, URO When: Where: [address] [place] [phone] Medications What How Much When Instructions Unchanged [...] these instructions at home: Medicines ? Take rijv-ipo-fmitjqk and prescription medicines only as told by [...] keep your pee pale yellow. ? Take bssj-xep-wfczblh or prescription medicines. ? Eat foods that are high in fiber, such as beans, whole grains, and fresh fruits and vegetables. ? Limit foods that are high in fat and processed sugars, such as fried or sweet foods. (more content not included)... Normal [facility] Urology Office/Clinic Noteon 02-20-2024 Urology Office/Clinic Note Urology Office/Clinic Note Chief Complaint [facility] ED f/u HPI Staff New pt f/u from [facility] ED visit 01/26/24 with complaints of right [...] stones new pt here for f/u to [facility] ER due to right flank pain, large [...] consent has been (more content not included)... Normal [facility] Comment on above: Result Comment: Elec tronically Signed By: Tayla Carson MD\.br\Date and Time Signed: 02/20/24 09:29 EDT\.br\Electronically Co-Signed By: Roxanne Osei\.br\Date and Time Co-Signed: 02/20/24 09:03 EDT No Panel InformationOrdered By: Kylah Galeana on 08-08-2023 COVID/Influenza Antigen (POC) [facility] COVID/Influenza Antigen (POC) [facility] COVID + FLU Quick Testingon 07-13-2023 SARS-CoV-2 (COVID-19) RNA ZAINAB+probe Ql (Unsp spec) negativ [facility] Other COVID + FLU Quick Testing Negative [facility] Other Quick Strepon 07-13-2023 S. pyogenes Org specific cx Ql (Throat) Negative [facility] Other Quick Strep [facility] Other Consenton 04-20-2023 Consent [id number] 330#[id number] Normal [facility] Registrationon 04-20-2023 Registration [id number] Normal [facility] Glucose Tolerance Test 2 [address] 10-11-2021 FGLU 104 mg/dL High 65-99 [facility] [employer] Specialist Comment on above: Result Comment: Acco rding to ADA: Fasting Glucoe Normal 65-99 mg/dl Prediabetes 100-125 mg/dl Diabetes >/= 126 Performed By: #### G BAR2MARK Mike Prof #### [facility] [address], [place] [id number] GLU1H 215 mg/dL Normal [facility] [employer]ist Comment on above: Performed By: #### G MARK PERRIN Prof #### [facility] [address], [place] [id number] GLU2H 200 mg/dL Normal [facility] [employer]ist Comment on above: Performed By: #### G MARK PERRIN Prof #### [facility] [address], [place] [id number] Hemoglobin A1Con 10-11-2021 EAG 93.93 Normal [facility] [employer]ist Comment on above: Performed By: #### A 1C #### [facility] [address], [place] [id number] HbA1c (Bld) [Mass fraction] 4.9 % Normal 4.0-6.0 [facility] [employer] Comment on above: Performed By: #### A 1C #### [facility] [address], [place] [id number] Iron Profileon 10-11-2021 %FESAT 31 % Normal 11-50 [facility] [employer]ist Comment on above: Performed By: #### G BAR2MARK Mike Prof #### [facility] [address], [place] [id number] FE 76 ug/dL Normal 40-190 [facility] [employer] Specialist Comment on above: Result Comment: Refe rence range change 05/04/2017. Prior reference range F 37-145 ug/dL, M 59-158 ug/dL. Performed By: #### G TT2H FE Prof #### [facility] [address], [place] [id number] TIBC 249 ug/dL Low 250-450 [facility] Specialist Comment on above: Performed By: #### G TT2H FE Prof #### [facility] [address], [place] [id number] UIBC 173 ug/dL Normal 112-347 [facility] Specialist Comment on above: Performed By: #### G TT2H, FE Prof #### [facility] [address], [place] [id number] Complete Blood Count with Au to Diffon 07-20-2021 Basophils (Bld) [#/Vol] 0.02 10*3/uL Normal 0.00-0.20 [facility] Specialist Comment on above: Performed By: #### F ERR, CBCAD, LIPD, CMP #### [facility] [address], [place] [id number] Basophils/100 WBC (Bld) 0.3 % Normal [facility] Specialist Comment on above: Performed By: #### F ERR, CBCAD, LIPD, CMP #### [facility] [address], [place] [id number] Eosinophils (Bld) [#/Vol] 0.30 10*3/uL Normal 0.02-0.50 [facility] Specialist Comment on above: Performed By: #### F ERR, CBCAD, LIPD, CMP #### [facility] [address], [place] [id number] Eosinophils/100 WBC (Bld) 4.2 % Normal [facility] Specialist Comment on above: Performed By: #### F ERR, CBCAD, LIPD, CMP #### [facility] [address], [place] [id number] Erythrocyte distribution width (RBC) [Ratio] 13.7 % Normal 11.0-15.0 [facility] Specialist Comment on above: Performed By: #### F ERR, CBCAD, LIPD, CMP #### [facility] [address], [place] [id number] Hematocrit (Bld) [Volume fraction] 39.0 % Normal 35.0-47.0 [facility] Comment on above: Performed By: #### F ERR, CBCAD, LIPD, CMP #### [facility] [address], [place] [id number] Hemoglobin (Bld) [Mass/Vol] 13.3 g/dL Normal 11.6-15.5 [facility] Specialist Comment on above: Performed By: #### F ERR, CBCAD, LIPD, CMP #### [facility] [address], [place] [id number] Lymphocytes (Bld) [#/Vol] 3.0 10*3/uL Normal 0.9-3.9 [facility] Special[facility] Comment on above: Performed By: #### F ERR, CBCAD, LIPD, CMP #### [facility] [address], [place] [id number] Lymphocytes/100 WBC (Bld) 42.1 % Normal [facility] Comment on above: Performed By: #### F ERR, CBCAD, LIPD, CMP #### [facility] [address], [place] [id number] MCH (RBC) [Entitic mass] 31.0 pg Normal 27.0-33.0 [facility] Specialist Comment on above: Performed By: #### F ERR, CBCAD, LIPD, CMP #### [facility] [address], [place] [id number] MCHC (RBC) [Mass/Vol] 34.1 g/dL Normal 32.0-36.0 [facility] Comment on above: Performed By: #### F ERR, CBCAD, LIPD, CMP #### [facility] [address], [place] [id number] MCV (RBC) [Entitic vol] 91 fL Normal 80-100 [facility] Comment on above: Performed By: #### F ERR, CBCAD, LIPD, CMP #### [facility] [address], [place] [id number] Monocytes (Bld) [#/Vol] 0.5 10*3/uL Normal 0.2-0.9 [facility] Specialist Comment on above: Performed By: #### F ERR, CBCAD, LIPD, CMP #### [facility] [address], [place] [id number] Monocytes/100 WBC (Bld) 7.6 % Normal [facility] Specialist Comment on above: Performed By: #### F ERR, CBCAD, LIPD, CMP #### [facility] [address], [place] [id number] Neutrophils (Bld) [#/Vol] 3.2 10*3/uL Normal 1.5-7.8 [facility] Special[facility] Comment on above: Performed By: #### F ERR, CBCAD, LIPD, CMP #### [facility] [address], [place] [id number] Neutrophils/100 WBC (Bld) 45.1 % Normal [facility] Comment on above: Performed By: #### F ERR, CBCAD, LIPD, CMP #### [facility] [address], [place] [id number] Platelet mean volume (Bld) [Entitic vol] 9.30 fL Normal 7.50-12.50 [facility] Comment on above: Performed By: #### F ERR, CBCAD, LIPD, CMP #### [facility] [address], [place] [id number] Platelets (Bld) [#/Vol] 256 10*3/uL Normal 140-400 [facility] Specialist Comment on above: Performed By: #### F ERR, CBCAD, LIPD, CMP #### [facility] [address], [place] [id number] RBC (Bld) [#/Vol] 4.29 10*6/uL Normal 3.90-5.20 [facility] Specialist Comment on above: Performed By: #### F ERR, CBCAD, LIPD, CMP #### [facility] [address], [place] [id number] RDW-SD 44.8 fL Normal 37.0-50.0 [facility] Specialist Comment on above: Performed By: #### F ERR, CBCAD, LIPD, CMP #### [facility] [address], [place] [id number] WBC (Bld) [#/Vol] 7.1 10*3/uL Normal 3.8-11.0 Akilah cunningham [place] [employer] Comment on above: Performed By: #### F ERR, CBCAD, LIPD, CMP #### [facility] [address], [place] [id number] Comprehensive Metabolic Pane alberta 07-20-2021 Albumin [Mass/Vol] 4.1 g/dL Normal 3.6-5.1 Akilah cunningham [employer] Comment on above: Performed By: #### F ERR, CBCAD, LIPD, CMP #### [facility] [address], [place] [id number] Albumin/Globulin [Mass ratio] 2.0 {ratio} Normal 1.0-2.5 [facility] Specialist Comment on above: Performed By: #### F ERR, CBCAD, LIPD, CMP #### [facility] [address], [place] [id number] ALP [Catalytic activity/Vol] 62 U/L Normal 35-119 [facility] Specialist Comment on above: Performed By: #### F ERR, CBCAD, LIPD, CMP #### [facility] [address], [place] [id number] ALT [Catalytic activity/Vol] 22 U/L Normal 6-33 [facility] Specialist Comment on above: Result Comment: 05/18 Female reference range changed. Performed By: #### F ERR, CBCAD, LIPD, CMP #### [facility] [address], [place] [id number] Anion gap [Moles/Vol] 16 mmol/L Normal 12-20 [facility] Comment on above: Result Comment: Effe ctive 06/23/2019 reference range changed. Performed By: #### F ERR, CBCAD, LIPD, CMP #### [facility] [address], [place] [id number] AST [Catalytic activity/Vol] 16 U/L Normal 9-34 [facility] Specialist Comment on above: Performed By: #### F ERR, CBCAD, LIPD, CMP #### [facility] [address], [place] [id number] Bilirubin [Mass/Vol] 0.41 mg/dL Normal 0.30-1.20 [facility] Comment on above: Performed By: #### F ERR, CBCAD, LIPD, CMP #### [facility] [address], [place] [id number] BUN/CREA 20 Ratio Normal 6-22 [facility] Comment on above: Performed By: #### F ERR, CBCAD, LIPD, CMP #### [facility] [address], [place] [id number] Calcium [Mass/Vol] 9.2 mg/dL Normal 8.6-10.2 [facility] Comment on above: Performed By: #### F ERR, CBCAD, LIPD, CMP #### [facility] [address], [place] [id number] Chloride [Moles/Vol] 108 mmol/L High 98-107 [facility] Comment on above: Performed By: #### F ERR, CBCAD, LIPD, CMP #### [facility] [address], [place] [id number] CO2 [Moles/Vol] 21 mmol/L Normal 20-31 [facility] Comment on above: Performed By: #### F ERR, CBCAD, LIPD, CMP #### [facility] [address], [place] [id number] Creatinine [Mass/Vol] 0.8 mg/dL Normal 0.6-1.4 [facility] Comment on above: Performed By: #### F ERR, CBCAD, LIPD, CMP #### [facility] [address], [place] [id number] eGFRAA 93 mL/min/1.73m2 Normal >60 [facility] Comment on above: Performed By: #### F ERR, CBCAD, LIPD, CMP #### [facility] [address], [place] [id number] eGFRNAA 77 mL/min/1.73m2 Normal >60 [facility] Comment on above: Performed By: #### F ERR, CBCAD, LIPD, CMP #### [facility] [address], [place] [id number] Globulin (S) [Mass/Vol] 2.1 g/dL Normal 1.9-3.7 [facility] [employer]ist Comment on above: Performed By: #### F ERR, CBCAD, LIPD, CMP #### [facility] [address], [place] [id number] Glucose [Mass/Vol] 126 mg/dL High 65-99 [place] [facility] [employer]ist Comment on above: Result Comment: For FASTING Glucose --- ADA reference ranges: Normal 65-99 mg/dl Prediabetes 100-125 Diabetes >/= 126 Performed By: #### F ERR, CBCAD, LIPD, CMP #### [facility] [address], [place] [id number] Potassium [Moles/Vol] 3.7 mmol/L Normal 3.5-5.5 [facility] Comment on above: Performed By: #### F ERR, CBCAD, LIPD, CMP #### [facility] [address], [place] [id number] Protein [Mass/Vol] 6.2 g/dL Normal 6.1-8.1 [facility] [employer]ist Comment on above: Performed By: #### F ERR, CBCAD, LIPD, CMP #### [facility] [address], [place] [id number] Sodium [Moles/Vol] 141 mmol/L Normal 135-146 [facility] [employer] Specialist Comment on above: Performed By: #### F ERR, CBCAD, LIPD, CMP #### [facility] [address], [place] [id number] Urea nitrogen [Mass/Vol] 15 mg/dL Normal 7-25 [facility] [employer]ist Comment on above: Performed By: #### F ERR, CBCAD, LIPD, CMP #### [facility] [address], [place] [id number] Ferritinon 07-20-2021 FERR 361.3 ng/mL High 15.0-150.0 [facility] [employer] Comment on above: Performed By: #### F ERR, CBCAD, LIPD, CMP #### [facility] [address], [place] [id number] Lipid Panelon 07-20-2021 Cholesterol [Mass/Vol] 161 mg/dL Normal 125-200 [facility] on above: Result Comment: Low risk < 200mg/dL Borderline risk 201-239 mg/dl High risk > or equal to 240 Performed By: #### F ERR, CBCAD, LIPD, CMP #### [facility] [address], [place] [id number] Cholesterol in HDL [Mass/Vol] 36 mg/dL Low >40 [facility] Specialist Comment on above: Result Comment: High Cardiovascular Risk HDL <40 mg/dL Low Cardiovascular Risk HDL > or equal to 60 mg/dl Performed By: #### F ERR, CBCAD, LIPD, CMP #### [facility] [address], [place] [id number] Cholesterol in LDL [Mass/Vol] 87 mg/dL Normal [facility] Comment on above: Result Comment: LDL ATP III CLASSIFICATION LDL less than 100 mg/dl Optimal LDL 100-129 mg/dl Near or above optimal LDL 130-159 Borderline high LDL 160-189 High LDL greater than 189 mg/dl Very High Performed By: #### F ERR, CBCAD, LIPD, CMP #### [facility] [address], [place] [id number] Cholesterol in VLDL [Mass/Vol] 38 mg/dL Normal [facility] Comment on above: Performed By: #### F ERR, CBCAD, LIPD, CMP #### [facility] [address], [place] [id number] Cholesterol.total/Chol esterol in HDL [Mass ratio] 4 {ratio} Normal [facility] Comment on above: Performed By: #### F ERR, CBCAD, LIPD, CMP #### [facility] [address], [place] [id number] Triglyceride [Mass/Vol] 191 mg/dL High 30-150 [facility] Specialist Comment on above: Result Comment: TRIG ATPIII CLASSIFICATIONS TRIG less than 150 mg/dl Normal TRIG 150-199 mg/dl Borderline High TRIG 200-500 mg/dl High TRIG greather than 500 mg/dl Very High Performed By: #### F ERR, CBCAD, LIPD, CMP #### [facility] [address], [place] [id number] Covid-19 PCR (CVDTB)on 05-20 SARS-CoV-2 (COVID-19) RNA ZAINAB+probe Ql (Unsp spec) Detected Critically abnormal NOT DETECTED [facility] Comment on above: Result Comment: This test is not yet approved or cleared by the [place] FDA. When there are no FDA-approved or cleared tests available, and other criteria are met, FDA can make tests available under an emergency access mechanism called an Emergency Use Authorization (EUA). The EUA for this test is supported by the [place] of Health and Human Service's (HHS's) declaration [...] used). Performed By: #### C VDTBH #### [facility] [address], [place] [address] Dr. Liat Walker Free T3on 06-02-2021 FT3 3.56 pg/mL Normal 2.00-4.40 [facility] Information Systems Security Specialist Comment on above: Performed By: #### F T4, TSH, FT3 #### [facility] [address], [place] [id number] Free T4on 06-02-2021 Free T4 [Mass/Vol] 0.80 ng/dL Normal 0.80-1.80 [facility] Comment on above: Performed By: #### F T4, TSH, FT3 #### [facility] [address], [place] [id number] Q - T3 TOTALon 06-02-2021 T3, TOTAL 123 ng/dL Normal 76-181 [facility] Comment on above: Order Comment: [facility] performed at: QPT, [facility], [address], [address] [facility], [place], [address], Hot Worker: Phil Gilbert MDQuest Collection Date/Time: [id number] Results Received Date/Time: [id number] Reported Date/Time: Performed By: #### F T4, TSH, FT3 #### [facility] [address], [place] [id number] Q - T3,REVERSE,LC/MS/MSon T3 REVERSE, LC/MS/MS 10 ng/dL Normal 8-25 [facility] Information Systems Security Specialist Comment on above: Order Comment: [facility] performed at: [facility], [facility], [address] [address], [place], [place], , Hot Worker: Vasquez Morales M.D.,PhDQuest Collection Date/Time: [id number] Results Received Date/Time: [id number] Reported Date/Time: Result Comment: This test was developed and its analytical performance characteristics have been determined by [facility] [place], [place]. It has not been cleared or approved by the U.S. Food and Drug Administration. This assay has been validated pursuant to the CLIA regulations and is used for clinical purposes. Performed By: #### F T4, TSH, FT3 #### [facility] [address], [place] [id number] TSHon 06-02-2021 TSH 2.580 uIU/mL Normal 0.400-4.500 [facility] Information Systems Security Specialist Comment on above: Performed By: #### F T4, TSH, FT3 #### [facility] [address], [place] [id number] Vital Signs Date Time Vital Sign Value Performing Clinician Debbie nevarez 03-27-2024 14: Body height 157.5 cm Alberta Sharp DO Work Phone: [facility] [employer] 03-27-2024 14:-040 Body mass index (BMI) [Ratio] 34.75 kg/m2 Alberta Sharp DO Work Phone: [facility] [employer] 03-27-2024 14:28-0400 Body weight 86.18 kg Christopher Aron DO Work Phone: [facility] 03-27-2024 14:28-0400 Diastolic blood pressure 89 mm[Hg] Christopher Aron DO Work Phone: [facility] 03-27-2024 14:28-0400 Heart rate 71 /min Christopher Aron DO Work Phone: [facility] 03-27-2024 14:28-0400 SaO2% (BldA) [Mass fraction] 94 % Christopher Aron DO Work Phone: [facility] 03-27-2024 14:28-0400 Systolic blood pressure 150 mm[Hg] Christopher Aron DO Work Phone: [facility] 02-20-2024 08:15-0400 Blood Pressure Location Tayla Lue [facility] 02-20-2024 08:15-0400 Diastolic blood pressure 72 mm[Hg] Tayla Lue [facility] 02-20-2024 08:15-0400 Heart rate 78 /min Tayla Lue [facility] 02-20-2024 08:15-0400 Systolic blood pressure 128 mm[Hg] Tayla Lue [facility] 09-03-2023 11:43-0400 Body height 157.48 cm [facility] 09-03-2023 11:43-0400 Body mass index (BMI) [Ratio] 34.7 kg/m2 [facility] 09-03-2023 11:43-0400 Body temperature 97.1 [degF] [facility] 09-03-2023 11:43-0400 Body weight 86.18 kg [facility] 09-03-2023 11:43-0400 Heart rate 75 /min [facility] 09-03-2023 11:43-0400 Respiratory rate 18 /min [facility] 09-03-2023 11:43-0400 SaO2% (BldA) [Mass fraction] 95 % [facility] 08-08-2023 10:20-0500 Body height 157.48 cm [facility] 08-08-2023 10:20-0500 Body mass index (BMI) [Ratio] 35.2 kg/m2 [facility] 08-08-2023 10:20-0500 Body temperature 97.5 [degF] [facility] 08-08-2023 10:20-0500 Body weight 87.23 kg [facility] 08-08-2023 10:20-0500 Diastolic blood pressure 80 mm[Hg] [facility] 08-08-2023 10:20-0500 Heart rate 73 /min [facility] 08-08-2023 10:20-0500 Respiratory rate 16 /min [facility] 08-08-2023 10:20-0500 SaO2% (BldA) [Mass fraction] 98 % [facility] 08-08-2023 10:20-0500 Systolic blood pressure 124 mm[Hg] [facility] 07-13-2023 16:45-0500 Body height 157.48 cm Kylah Galeana Other [facility] 07-13-2023 16:45-0500 Body mass index (BMI) [Ratio] 35.66 kg/m2 Kylah Galeana Other [facility] Other 07-13-2023 16:45-0500 Body temperature 98.8 [degF] Kylah Galeana Other [facility] Other 07-13-2023 16:45-0500 Body weight 88.45 kg Kylah Galeana Other [facility] 07-13-2023 16:45-0500 Diastolic blood pressure 80 mm[Hg] Kylah Galeana Other [facility] 07-13-2023 16:45-0500 Respiratory rate 18 /min Kylah Chinomond Other [facility] Other 07-13-2023 16:45-0500 SaO2% (BldA) [Mass fraction] 96 % Kylah Galeana Other [facility] Other 07-13-2023 16:45-0500 Systolic blood pressure 149 mm[Hg] Kylah Galeana Other [facility] 05-03-2022 16:05-0500 Body height 156.84 cm Kylah Galeana Other [facility] Other 05-03-2022 16:05-0500 Body mass index (BMI) [Ratio] 34.29 kg/m2 Kylah Chinomond Other [facility] Other 05-03-2022 16:05-0500 Body temperature 96.8 [degF] Kylah Galeana Other [facility] Other 05-03-2022 16:05-0500 Body weight 84.37 kg Kylah Galeana Other [facility] Other 05-03-2022 16:05-0500 Respiratory rate 18 /min Kylah Galeana Other [facility] Other 05-03-2022 16:05-0500 SaO2% (BldA) [Mass fraction] 96 % Kylah Chinomond Other [facility] Other Encounters Encounter Date Encounter Type Care Provider Facility Start: 03-27-2024 End: 03-27-2024 Office outpatient new 45 minutes Alberta Sharp DO Work Phone: [facility] Comment on above: Ataxia (Primary Dx); Visual disturbance; Tremor Start: 03-27-2024 End: 03-27-2024 ambulatory NETTECOLTON SHARP Not Available Start: 03-27-2024 End: 03-27-2024 Bamboo flowsheet Alberta Sharp DO [facility] Start: 03-27-2024 End: 03-27-2024 Bamboo flowsheet Alberta Sharp DO [facility] Start: 03-19-2024 End: 03-19-2024 ambulatory Tayla M. Lue Facility:[facility] Start: 03-19-2024 End: 03-19-2024 Off-Site Tayla M. Lue [facility] Start: 02-20-2024 End: 02-20-2024 ambulatory Tayla M. Lue Facility:[facility] Start: 02-20-2024 End: 02-20-2024 Lab Drop off Tayla M. Lue [facility] Start: 02-20-2024 End: 02-20-2024 ambulatory Tayla M. Lue Facility:[facility] Start: 02-20-2024 End: 02-20-2024 Patient encounter procedure Tayla M. Lue [facility] Start: 01-28-2024 ambulatory Singh Schultz y:[facility] Start: 09-03-2023 End: 09-03-2023 ambulatory [facility] Work Phone: Start: 09-03-2023 End: 09-03-2023 Patient encounter procedure [facility] Work Phone: Start: 08-08-2023 End: 08-08-2023 ambulatory [facility] Work Phone: Start: 08-08-2023 End: 08-08-2023 Patient encounter procedure [facility] Work Phone: Start: 07-13-2023 End: 07-13-2023 ambulatory Kylah Galeana Other [facility] Other Start: 07-13-2023 Office outpatient visit 15 minutes Kylah Galeana [facility] Start: 07-13-2023 End: 07-13-2023 Patient encounter procedure [facility] Start: 04-20-2023 End: 04-20-2023 ambulatory Singh HOPE Facility:[facility] Start: 05-03-2022 End: 05-03-2022 ambulatory Kylah Galeana Other [facility] Other Start: 05-03-2022 Office outpatient ne w 20 minutes Kylah Galeana [facility] Start: 06-17-2021 End: 06-17-[address] CECIL KNOX Facility: Procedures Date Procedure Procedure Detail Performing Clinician Start: 08-08-2023 COVID/Influenza Antigen (POC) Plan of Treatment Date Care Activity Detail Author Start: 04-23-2024 End: 04-23-2024 Patient encounter procedure 04/23/2024 3:00 PM EST Office Visit [facility] [address] [place] [phone] Alberta Sharp DO [address] [place] [id number] [facility] Start: 03-27-2024 End: 03-27-2024 Patient encounter procedure 03/27/2024 2:30 PM EDT [facility] [address] [place] [phone] Alberta Sharp DO [address] [place] [address] Arrived [facility] [address] [facility] Comment on above: Arrived Start: 03-27-2024 End: 03-27-2025 MR Brain WO and W contrast IV MR brain w and wo contrast routine Imaging Routine Ataxia Expected: 03/27/2024, Expires: 03/27/2025 [facility] Work Phone: Comment on above: Expected: 03/27/2024 , Expires: 03/27/2025 Start: 02-17-2024 Influenza vaccination Influenza Vacc ine (#1) [facility] Start: 1997 Screening for malign ant neoplasm of breast Mammogram [facility] Start: 1963 Pneumococcal Vaccine : 65+ Years (1 of 2 - PCV) Pneumococcal Vaccine: 65+ Years (1 of 2 - PCV) [facility] Start: 1957 Screening for malign ant neoplasm of colon [facility] Payers Date Payer Category Payer Medicare [employer] MEDICARE ADVANTAGE [facility] MEDICARE ADVANTAGE [id number] 2023-Present [address] [place] [address] [id number] 2023 Unknown BCBS BCBS [id number] [id number] 2023-Present [phone] [address] [place] [address] [id number] 2023 Blue Cross Blue Shield [id number] 2023 Medicare [id number] 2023 Unknown [id number] 1959 Unknown [id number] 1957 Unknown [id number] 1957 Unknown [id number] 27 1957 Unknown [id number] 27 1957 Unknown [id number] 27 1957 Unknown [id number] Self-pay Self Pay [id number] Unknown O [id number] Social History Date Type Detail Facility Unknown if ever smoked [facility] Other Sex Assigned At [facility] Start: 1955 Sex Assigned At Female F [facility] Start: 09-03-2023 End: 02-20-2024 Tobacco smoking status FLIS Never smoked tobacco (finding) [facility] Tobacco smoking status Never [facility] Tobacco smoking status [facility] Tobacco smoking consumption unknown [facility] Start: 1955 Sex assigned at Not on file N [facility] Functional Status Date Assessment Result Facility 02-20-2024 Functional Status N/A [facility] Clinical Notes 05-03-2022 to 03-27-2024 Alberta Sharp, - 03/27/2024 2:30 PM EDT Note Date & Type Note Facility 03-27-2024 History of Present illness Narrative Images from the original note were not included. Chief Complaint: headaches, vision changes and tremor Subjective Dev Phipps, 68 y.o., female Dev is here for a neurologic consult at the request of Dr. Castillo for new onset headaches, vision changes and tremor. Patient states she was driving down the street beginning of February and she all the sudden could not see and she got very dizzy. She did expereince some visual disturbances at this time. After that episode she had a terrible headache for two days. She denies having any headaches since then. She reports having intermittent dizziness. She notices this when she is laying down if her head is down to far. She notices this more when she is looking up as well. She does report some balance issues. She has had a tremor since about 2007. This was very mild then but has progressed. This is constant but is worse at times. This is located in her left hand. She notices this most when she is cooking or eating and drinking. She reports dropping items. She reports her father having a tremor. She also reports ringing in her ears. This is constant. Review of Systems Constitutional: Negative for appetite change, fatigue and fever. Eyes: Positive for visual disturbance. Respiratory: Negative for cough, shortness of breath and wheezing. Cardiovascular: Negative for chest pain, palpitations and leg swelling. Gastrointestinal: Negative for abdominal pain, constipation, diarrhea and nausea. Musculoskeletal: Negative for arthralgias, gait problem and myalgias. Neurological: Positive for tremors and headaches. Negative for dizziness and numbness. No past medical history on file. No past surgical history on file. No family history on file. Social History Tobacco Use Smoking status: Not on file Smokeless tobacco: Not on file Substance Use Topics Alcohol use: Not on file Allergies: Ibuprofen, Iodine, Valium [diazepam], and Penicillins Vitals: 03/27/24 1428 BP: 150/89 Pulse: 71 SpO2: 94% Body mass index is 34.75 kg/m . weight: 190 lb Neurologic exam: Mental status: Awake, alert to person, place and time. Recent and remote memory are intact. Language is fluent without aphasia. Attention and concentration are normal. Fund of knowledge is appropriate for level of education. Cranial nerves: CN II: Visual acuity is normal. Visual matias full to confrontation. CN III, IV, : pupils equal round and reactive to light. Extraocular movements intact. No ptosis present. CN V: Facial sensation is normal. CN VII: Full and symmetric facial movement. CN VIII: Hearing is normal to finger rub bilaterally: CN IX and X: Palate elevates symmetrically. CN XI: Shoulder shrug is normal bilaterally. CN XII: Tongue is midline without atrophy or fasciculation. Motor: RUE Strength deltoid, , biceps , triceps , wrist extensors , wrist flexor , perishable fruit inspector strength 5/5. LUE Strength deltoid , biceps , triceps , wrist extensors , wrist flexor , perishable fruit inspector strength 5/5. RLE Strength illopsoas, quadriceps, tibialis anterior, and gastrocnemius strength 5/5. LLE Strength illopsoas, quadriceps, tibialis anterior, and gastrocnemius strength 5/5. Subtle tremor of the bilateral upper extremity with intention. No rigidity. No bradykinesia. Bulk is normal. Sensory: Sensation is intact to light touch throughout Four extremities. Reflexes: RUE biceps reflex 2+ brachioradialis reflex 2+ . LUE biceps reflex 2+ brachioradialis reflex 2+ . RLE knee reflex 2+ . LLE knee reflex 2+ . Hernandez's sign negative. Coordination: Abnormal on the left. Gait: Normal Review and summary of old records: Thyroid stimulating hormone on 06/02/2021: Normal Assessment/Plan Diagnoses and all orders for this visit: Ataxia Visual disturbance It is my impression that the patient has an episode of visual disturbance and severe headache thereafter accompanied with ataxia on examination today. Certainly a primary headache disorder would be very unusual for onset at the age of 68. Based on the focal exam findings we need to exclude any intracranial pathology that could be life-threatening or debilitating. This would include but not be limited to mass lesion. Plan: MRI of the brain with and without contrast Tremor Patient does have a tremor of the bilateral upper extremities. This tremor has been for a years. It does not appear to be worsening. Rigidity and bradykinesia are not identified. The patient does not wish treatment for this at this time. Plan: Monitor clinically Pt has been fully educated on their diagnosis, treatment options, follow up plan, and return instructions documented in this encounter [facility] 02-20-2024 Evaluation + Plan note Diagnostic Tests PendingUrine Culture 02/20/24 [facility] 02-20-2024 Hospital Discharge instructions Patient Education 02/20/2024 09:00:02 Laser Therapy [...] Follow these instructions at home: Medicines Take dmjg-eir-pwtpkyj and prescription medicines only as told by [...] to keep your pee pale yellow. ?Take ikwg-kog-xddjsef or prescription medicines. ?Eat foods that are [...] provider. Document Revised: 02/02/2023 Document Reviewed: 02/02/2023 [employer] Patient Education 2023 [email or web address]. 02/20/2024 09:00:01 Laser Therapy for Kidney Stones [...] including vitamins, herbs, eye drops, creams, and czce-ako-bqjxgav medicines. Any problems you or family members [...] unless your provider tells you to. ?Taking slgg-bmq-kuxlwml medicines, vitamins, herbs, and supplements. Tests You [...] provider. Document Revised: 02/02/2023 Document Reviewed: 02/02/2023 [employer] Patient Education 2023 [email or web address]. Follow Up Care 01/29/2024 10:22:50 With:Alli CASTILLO, LESTER Stapleton, URO Address: [address] [place] [phone] When: Unknown [facility] 02-20-2024 Note Patient Education Nephrology Laser [...] these instructions at home: Medicines ? Take ooxm-rbt-fkrsugx and prescription medicines only as told by [...] keep your pee pale yellow. ? Take kmjt-bfx-nrqzpwk or prescription medicines. ? Eat foods that [...] provider. Document Revised: 02/02/2023 Document Reviewed: 02/02/2023 [employer] Patient Education ? 2023 [email or web address]. Laser Therapy for Kidney Stones Laser therapy [...] including vitamins, herbs, eye drops, creams, and qsax-srd-smbwclk medicines. ? Any problems you or family [...] Do not e (more content not included)... [facility] 07-13-2023 Evaluation note Encounter Date Diagnosis Assessment [...] Z20.822) Jun, Sore throat (ICD-10 - J02.9) [facility] Other 11-16-2022 Evaluation note* Encounter Date Diagnosis [...] unspecified otitis media type (ICD-10 - H66.92) [facility] Other Evaluation + Plan note No data available for this section [facility] evaluation note* Diagnosis Onset Date Resolution Status Contact with and (suspected) exposure to covid-19 acute COVID-19 acute [facility] Work Phone: Evaluation note* Diagnosis Onset Date Resolution Status Contact with and (suspected) exposure to covid-19 acute COVID-19 acute Viral URI with cough acute Contact with or exposure to other viral diseases noneactive [facility] Work Phone: Evaluation note* Diagnosis Ataxia- Primary Lack of coordination Visual disturbance Unspecified visual disturbance Tremor Abnormal involuntary movements documented in this encounter [facility] N[facility] - Reported* Type Description Date Medical History Hypothyroidism Medical History asthma Medical History seasonal allergies Medical History haris- manuel Surgical History tubal ligation Surgical History appendectomy Surgical History left oophorectomy Surgical History cholecystectomy Hospitalization History multiple stays for asthm [facility] Other History general Narrative - Reported* Type Description Date Medical History Hypothyroidism Medical History asthma Medical History seasonal allergies Medical History haris- manuel Surgical History tubal ligation Surgical History appendectomy Surgical History left oophorectomy Surgical History cholecystectomy Surgical History hernia Hospitalization History multiple stays for asthm [facility] Other Hospital Discharge instructions No data available for this section [facility] Progress note No data available for this section [facility] reason for visit Narrative* Consultation (Routine) - Closed Specialty Diagnoses / Procedures Referred By Jacek t Referred To Contact Neurology Diagnoses Headache, unspecified Tremor, unspecified New onset headaches, vision changes, tremors, no testing per pt and ref dr Horace Castillo PAC Procedures MO OFFICE/OUTPATIENT NEW LOW MDM 30 MINUTES NEURO NEW PATIENT Lala Castillo MD [address] [place] [address] Alberta Sharp DO [address] [place] [address] Referral ID Status Reason Start Date Expiration Date V isits Requested Visits Authorized [id number] Closed Consult and Treat 03/27/2024 09/23/2024 1 1 [facility] Summary Purpose Family History Relationship Condition Age at Onset Recorded Date/T nelson father Unknown Not Specified Unknown sister Unknown Advance Directives Advance Directive Response Recorded Date/ Time Advance [...] and content) DATE CREATED AUTHOR 06/24/2021 [facility] DATE CREATED AUTHOR AUTHOR'S ORGANIZ ATION 10/13/2021 [facility] dical Specialist DATE CREATED AUTHOR AUTHOR'S ORGANIZ ATION 02/24/[address] [facility] DATE CREATED AUTHOR AUTHOR'S ORGANIZ ATION 03/21/[address] 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 [facility]. provides no warranty or guarantee of the accuracy or completeness of information in this document.
--- NOTE | 2024-04-03 09:24 | XR_ITS ---
The [address] [address] Patient Name: DEV BACON MRN: [id number] date: 1955 Sex: F Assigned Patient Location: [facility] Current Patient Location: Accession/Order Number: [id number] Exam Date: 04/03/2024 09:30 Report Date: 04/07/2024 07:18 At the request of: KRISTIN CERRATO Procedure: XR abdomen 1V EXAMINATION: XR abdomen 1V HISTORY: Kidney stones N20.0 COMPARISON: No relevant comparison available. FINDINGS: KIDNEY/URETER - RIGHT: Interval changing configuration of a large nephrolith along the lower pole now fragmented measuring 1.7 cm tall. Additional upper pole nephrolith. Right ureteral stent normally positioned with suspected proximal ureterolithiasis KIDNEY/URETER - LEFT: No visible renal or ureteral calcifications. PELVIS: No visible ureteral calcifications. Any visible calcifications favor phleboliths. BOWEL: No abnormal dilation or deviation. BONES: No acute abnormality. Moderate degenerative changes with rotatory levocurvature OTHER: Negative. No abnormal gaseous collections. XR/XR abdomen 1V IMPRESSION: Interval lithotripsy with fragmentation appearance of a right lower pole nephrolith and proximal ureterolithiasis Electronically authenticated by: REHAN MEDLEY Date: 04/07/2024 07:18
== END 2024-04-03 09:17 | disposition home or self-care (01) ==
LOC: RAD 09:19
PROVIDERS: PCP Nurse Practitioner Family; Visit Provider Urology
DX: N20.0 Calculus of kidney (principal)
CPT/HCPCS: 74018

== ENCOUNTER 2024-04-16 14:47 | Outpatient (OUT) | payer MEDICARE, BC, SELFPAY | END 2024-04-16 14:48 | disposition home or self-care (01) | LOC: PST 14:47 | PROVIDERS: PCP Nurse Practitioner Family; Visit Provider Urology | DX: Z01.818 Encounter for other preprocedural examination (principal); N20.0 Calculus of kidney; Z87.891 Personal history of nicotine dependence ==

== ENCOUNTER 2024-04-23 12:21 | Day surgery (SDC) | payer BC, MEDICARE, SELFPAY ==
[2024-04-23] VITALS (9 sets, daily range): BP systolic 142–162; BP diastolic 74–92; PULSE 54–89; TEMP 36.2–36.6; O2SAT 93–98; BMI 33.9
[2024-04-23] MEDS: LACTATED RINGER'S SOLUTION 1,000 ML 50 ML IV (13:04)
--- NOTE | 2024-04-23 14:00 | XR_ITS ---
The [address] [address] Patient Name: DEV BACON MRN: [id number] date: 1955 Sex: F Assigned Patient Location: [facility] Current Patient Location: [facility] Accession/Order Number: [id number] Exam Date: 04/23/2024 14:10 Report Date: 04/23/2024 15:53 At the request of: RILEY ATKINS Procedure: XR urethrogram retrograde EXAM: XR urethrogram retrograde HISTORY: Right kidney stone COMPARISON: None. TECHNIQUE: 14.14 mgy. Single image FINDINGS: Single image demonstrates placement of a right double-J ureteral stent in normal position. Contrast in the right renal collecting system demonstrates mild hydronephrosis. XR/XR urethrogram retrograde IMPRESSION: Right ureteral stent with hydronephrosis Electronically authenticated by: REHAN MEDLEY Date: 04/23/2024 15:53
[2024-04-23] MEDS: CIPROFLOXACIN IN 5 % DEXTROSE 400 MG/200 ML PREMIX 200 MG IV (14:06)
[2024-04-23] MEDS: IOHEXOL 240 MG/ML - 10 ML VIAL INJ (15:22)
--- NOTE | 2024-04-23 15:41 | PM.URSON ---
Urology Surgery Operative Note Operative Note Procedure Date: 04/23/24 Time Out Performed: yes Pre-op Diagnosis: Right kidney stones (> 2 cm stone burden) Post-op Diagnosis: same as pre-op Procedures performed: Cystoscopy, right retrograde pyelogram, ureteroscopy laser lithotripsy/stone extraction, stent exchange Anesthesia: General-LMA (Dr. Antonio) Primary Surgeon: Tayla Carson Complications: none Estimated blood loss (mL): 0 Findings: Right RPG filling defect in proximal ureter. Multiple small dark brown/green stone fragments basket extracted from proximal ureter. Extensive amount of additional stone fragments in all calyces underwent combination of basket extraction and laser lithotripsy into fine dust. No extravasation of contrast, mild hydronephrosis at end of case. Mildly tight meatus with urethral caruncle. Specimens: right kidney stones Drains: 6Fr x 24 cm JJ right ureteral stent Incision: none Indications for Procedures: 68 year old female diagnosed with 1.8 x 1.6 cm right renal pelvis stone and 7 mm right mid pole stone s/p R ESWL and stent placement on 03/19/24. Follow up KUB showed fragmentation of large stone along lower pole now 1.7 cm, upper pole stone and proximal stones. After discussion of risks/benefits of management options, she elected to proceed with second stage cystoscopy, right retrograde pyelogram, ureteroscopy with laser lithotripsy/stone extraction, ureteral stent exchange under general anesthesia. Risks were discussed including but not limited to bleeding, pain, infection, damage to surrounding structures, inability to treat the stone/place a stent, and need for additional procedures. The patient understands the stent is not permanent and needs to be removed or exchanged within 3 months to prevent encrustation, infection, invasive procedures and/or permanent renal damage. Detailed description of Procedure: After informed consent was obtained, the patient was brought to the operating room and transferred onto the operating table in supine position. Sequential compression devices were placed on bilateral lower extremities. The patient received the appropriate dose of preoperative IV antibiotics (cipro) and general anesthesia LMA was induced. They were positioned in modified dorsolithotomy with the appropriate pressure points padded, prepped, and draped in the usual sterile fashion for this procedure. An operative safety timeout was performed confirming the patient's identity, laterality and procedure, and all present agreed to proceed. I began by inserting a 22 Icelandic rigid cystoscope with 30 degree lens into the patient's urethra and bladder without difficulty. There were no bladder tumors, lesions, or stones. Bilateral ureteral orifices were orthotopic and patent. I turned my attention to the right ureteral orifice and brought the indwelling right ureteral stent out to the meatus with flexible graspers through the cystoscope. A guidewire was inserted alongside the stent (unable to advance within stent) and stent was removed. A 6- Icelandic open-ended catheter was inserted over the wire, wire removed, and dilute contrast was injected for retrograde pyelogram with findings as above. A Sensor wire was inserted into the ureter up to the renal pelvis confirmed on fluoroscopy, open ended removed. An 11/13 Icelandic by 36 cm ureteral access sheath was inserted over the wire in a sequential fashion to gain access to the ureteral stone. Next a flexible ureteroscope was inserted through the sheath and advanced to the ureter under fluoroscopic guidance until the stone was reached. Multiple stone fragments were encountered mildly impacted into the ureter, all gently basket extracted and removed without difficulty. After near cm length of stone fragments removed, ureteroscope advanced into renal pelvis. Large amount of 2-4 mm stone fragments encountered. A 1.8 tipless nitinol basket was used to remove the larger fragments. A 275 ?m thulium laser fiber was used to dust the fragments into fine sand or pieces <1 mm. After the stone fragments were adequately treated, a full renoscopy was performed confirming no significant residual stones or fragments remained. Contrast was injected to assist with mapping for the renoscopy. The wire was reinserted and a pull down ureteroscopy was performed confirming no stones remained in the ureter. The wire was backloaded through the cystoscope and 6Fr x 24 cm JJ ureteral stent was advanced over the wire, noting adequate curl in the renal pelvis and bladder on fluoroscopic and direct visualization. The bladder was drained and inspected one final time to ensure adequate position of stent and no undue trauma to the bladder was done. The stones were sent for pathology and the cystoscope was removed. The patient tolerated the procedure well without complication. The patient was awakened from anesthesia and sent to PACU in stable condition. Plan: Discharge home with stent pain medications (severe dry mouth with oxybutynin, mirabegron was sent. Pt allergic to tamsulosin). Follow up in 1-2 weeks for in-office cystoscopy, stent removal. Other Provider present: No Post Operative care instructions: See discharge instructions Attending Doc Confirm Attending Attestation: Yes
[2024-04-29 10:09] LABS: Calcium Oxalate Dihydrate 70 % (.); Calcium Oxalate Monohydrate 20 % (.); Calcium phosphate (hydroxyl) 10 % (.); Size 4x3 mm (.)
== END 2024-04-23 16:48 | disposition home or self-care (01) ==
PROVIDERS: PCP Nurse Practitioner Family; Visit Provider Urology
PROC: (CPT 918; principal; 2024-04-23 13:20)
DX: N20.0 Calculus of kidney (principal); Z87.891 Personal history of nicotine dependence; Z90.49 Acquired absence of other specified parts of digestive tract; Z98.51 Tubal ligation status; J45.909 Unspecified asthma, uncomplicated; R06.09 Other forms of dyspnea; I10 Essential (primary) hypertension; E78.5 Hyperlipidemia, unspecified; E03.9 Hypothyroidism, unspecified
CPT/HCPCS: 52356; 74420; 82365; 99999; J0744; J1100; J2250; J2405; J2704; J3010; Q9966

== ENCOUNTER 2024-05-30 16:36 | Emergency (ER) | payer BC, MEDICARE, SELFPAY ==
[2024-05-30 16:43] VITALS: BP 194/92; PULSE 74; TEMP 36.8; O2SAT 99; BMI 33.5
--- OUTSIDE RECORDS SUMMARY | 2024-05-30 16:43 | XMS_ITS | CCD ---
Author Organization [facility] Care Team Providers Care Artistic Associate Name Role Phone DR CECIL KNOX Attending Unavailable ABILIO, DR JACOB Consulting Unavailable DR CECIL KNOX Admitting Unavailable Kylah Galeana Unavailable LALA CASTILLO Primary Care Physician [phone] Singh HARRIS Attending Unavailable Tayla Carson Attending Unavailable Tayla Carson Attending Unavailable Tayla Carson Admitting Unavailable Tayla Carson Attending Unavailable ALBERTA SHARP Attending Unavailable LALA CASTILLO Referring Unavailable Unallocated , Noms Provider Primary Care Provi yue Tayla Carson Attending Unavailable Tayla Carson Attending Unavailable Tayla Carson Admitting Unavailable Tayla Carson Referring Unavailable Tayla Carson Attending Unavailable Tayla Carson Admitting Unavailable Tayla Carson Attending Unavailable Tayla Carson Attending Unavailable Tayla Carson Attending Unavailable Allergies Allergy Classification Reported Allergen(s) Allergy Type Date of Onset Reaction(s) Facility (2 sources) Cephalexin Drug Allergy itching on her head [facility] Accumulate Other (15 sources) diazePAM; Translations: [diazepam] Drug Allergy 08-08-19 hives, Eruption of skin (disorder) [facility] (2 sources) levothyroxine Drug Allergy rash [facility] Accumulate Other (4 sources) Penicillin G Drug Allergy 08-08-19 24 hives, SOB [facility] (4 sources) dye for testing Propensity to adverse reactions 07-16-19 24 anaphylaxis [facility] (13 sources) Cephalexin; Translations: [Cephalexin] Drug Allergy 08-08-19 Eruption of skin (disorder) [facility] (2 sources) levothyroxine Drug Allergy 08-08-19 rash [facility] (11 sources) Amoxicillin; Translations: [amoxicillin] Drug Allergy Eruption of skin (disorder) [facility] (11 sources) Contrast media; Translations: [contrast media (iodine-based)] Propensity to adverse reactions to drug Anaphylaxis (disorder) [facility] (13 sources) Ibuprofen; Translations: [ibuprofen] Drug Allergy 03-27-20 Eruption of skin (disorder), Other [facility] (11 sources) levothyroxine; Translations: [levothyroxine] Drug Allergy Eruption of skin (disorder) [facility] (13 sources) Penicillins; Translations: [penicillins] Propensity to adverse reactions to drug 03-27-20 Eruption of skin (disorder), Rash [facility] (2 sources) Diazepam Propensity to adverse reactions 03-27-20 Other [facility] (2 sources) Iodine Drug Allergy 03-27-20 Hives [facility] (2 sources) tamsulosin; Translations: [tamsulosin] Drug Allergy Asthma trigger (observable entity) [facility] Medications Current Medications Medication Drug Class(es) Dates Sig (Normalized) Sig (Original) ABDEK oral capsule (7 sources) Start: 02-20-2024 take 1 capsule by mouth once daily ABDEK oral capsule cap(s), Oral, Daily, Refill(s) 0 Start Date: 02/20/24 Status: Ordered Albuterol (Eqv-ProAir HFA) 90 mcg/inh inhalation aerosol (7 sources) Start: 02-20-2024 Albuterol (Eqv-ProAir HFA) 90 [...] times a day Jun, Active K2 Liquid (7 sources) Start: 02-20-2024 take 1 ug by mouth once daily K2 Liquid mcg, Oral, Daily, Refills(s) 0 Start Date: 02/20/24 Status: Ordered lisinopril 40 mg oral tablet (9 sources) Angiotensin Converting Enzyme Inhibitor Start: 02-20-2024 take 1 tablet by mouth once daily lisinopril 40 mg Tab 40 mg = 1 tab(s), Oral, Daily, # 30 tab(s), Refills(s) 0 Start Date: 02/20/24 Status: Ordered Start: 08-08-2023 Lisinopril Act zmazam MG PO August 08, 2023 1:00am Start: 08-08-2023 Lisinopril Act zamzam MG PO August 08, 2023 12:00am magnesium gluconate 250 mg oral tablet (7 sources) Start: 02-20-2024 take 1 mg by [...] Jun, Active topiramate 50 mg oral tablet (8 sources) Start: 02-20-2024 take 1 tablet by mouth twice daily topiramate 50 mg Tab 50 mg = 1 tab(s), Oral, BID, # 180 tab(s), Refills(s) 0 Start Date: 02/20/24 Status: Ordered Start: 09-03-2023 Topiramate Act zamzam MG PO September 03, 2023 12:00am vitamin B12 (7 sources) Vitamin B12 Start: 02-20-2024 Vitamin B12 Re fills(s) 0 Start Date: 02/20/24 Status: Ordered Completed/Discontinued Medications Medication Drug Class(es) Dates Sig (Normalized) Sig (Original) albuterol 0.83 mg/ml inhalation solution (10 sources) beta2-Adrenergic Agonist Start: 02-20-2024 take 1 [...] wheezing Active amLODIPine 10 mg oral tablet (12 sources) Dihydropyridine Calcium Channel Jennie Start: 02-20-2024 [...] Apr, Not-Taking/PRN ezetimibe 10 mg oral tablet (12 sources) Dietary Cholesterol Absorption Inhibitor Start: 02-20-2024 [...] Active levothyroxine sodium 0.088 mg oral capsule (12 sources) l-Thyroxine Start: 02-20-2024 take 1 capsule [...] meals Active sertraline 100 mg oral tablet (11 sources) Serotonin Reuptake Inhibitor Start: 02-20-2024 take 1 tablet by mouth once daily sertraline 100 mg Tab 100 mg = 1 tab(s), take 1 tablet by mouth once daily Start Date: 02/20/24 Status: Ordered Start: 08-08-2023 Sertraline Act zamzam MG PO August 08, 2023 1:00am Problems Active Problems Problem Classification Problem Date Documented Da te Episodic/Chronic Abdominal pain (8 sources) Abdominal pain; Translations: [Unspecified abdominal pain] Onset: 02-20-2024 Episodic Asthma (2 sources) Exacerbation of mild persistent asthma; Translations: [Mild persistent asthma with (acute) exacerbation] Chronic Blindness and vision defects (2 sources) Visual disturbance; Translations: [Unspecified visual disturbance] 03-27-2024 Episodic Calculus of urinary tract (12 sources) Kidney stone; Translations: [Calculus of kidney] Onset: 02-20-2024 Episodic Chronic obstructive pulmonary disease and bronchiectasis (1 source) Bronchitis, not specified as acute or chronic Episodic Genitourinary symptoms and ill-defined conditions (19 sources) Blood in urine; Translations: [Gross hematuria] Onset: 02-20-2024 Episodic Immunizations and screening for infectious disease (5 sources) Contact with or exposure to other viral diseases; Translations: [Contact with or suspected exposure to severe acute respiratory syndrome coronavirus 2] 08-08-2023 Episodic Other diseases of bladder and urethra (2 sources) Urethral caruncle; Translations: [Urethral caruncle] Onset: 05-01-2024 Episodic Other injuries and conditions due to external causes (1 source) Foreign body in bladder; Translations: [Foreign body in bladder, initial encounter] Onset: 05-01-2024 Episodic Other lower respiratory disease (1 source) [...] of mental health and substance abuse codes (9 sources) H/O: Disorder; Translations: [Personal history of [...] Test Name Value Interpretation Reference Range Facility Ambulatory Visit Summaryon 1 07-02-2023 Ambulatory Visit Summary Ambulatory Visit Summary DEV PHIPPS :1955 Visit Date:05/02/2024 Ambulatory Visit Instructions Your Diagnosis Foreign body in bladder Kidney stones Gross hematuria History of UTI History of kidney stones Former smoker Urethral caruncle Tests Performed US Renal -- Results Pending -- Please visit your patient portal for your results or contact your primary care physician. Your Care Team Attending Physician - Tayla [...] topiramate (topiramate 50 mg Tab) Discharge Vitals Height 158 cm Height 62 in Weight 84 kg Weight 185.188 lb BMI 33.65 What to do next Scheduled Follow-Up Appointments Sunday. 2024 8:00 AM EDT With: Tayla Carson MD Where: [facility] [address] You Need to Schedule the Following Appointments Follow Up with Tayla Carson MD, URL, URO When: Where: Medications What How Much When Instructions Unchanged [...] Contact prescribing physician if questions or concerns Medications and Immunizations Administered Given lidocaine Top 2% Gel w/Appl 6 mL, 6 mL, Topical. For: Foreign body in bladder, Kidney stones, Gross hematuria, History of UTI Allergies amoxicillin (Rash) cephalexin (Rash) contrast media (iodine-based) (Anaphylaxis) diazePAM (Rash) ibuprofen (Rash) levothyroxine (Rash) penicillins (Rash) tamsulosin (Asthma trigger) Problems Ongoing - Any problem that you are currently receiving treatment for. Former smoker Gross hematuria History of kidney stones History of UTI Kidney stones Right flank pain Urethral caruncle Patient Survey You may receive a survey via text or e-mail asking about your office visit. Please share your experience with us by completing your survey. We appreciate your feedback and thank you for choosing us for your care. Education Materials Dietary Guidelines to Help Prevent Kidney Stones Kidney stones are deposits of minerals and salts that form inside your kidneys. Your risk of developing kidney stones may be greater depending on your diet, your lifestyle, the medicines you take, and whether you have certain medical conditions. Most people can lower their risks of developing kidney stones by following these dietary guidelines. Your dietitian may give you more specific instructions depending on your overall health and the type of kidney stones you tend to develop. What are tips for following this plan? Reading food labels ??? Choose foods with no salt added or (more content not included)... Normal [facility] Reminderson 05-02-2024 Reminders Reminders -- From: Shauna Hernandez To: JUDIT - Richard Carson; Sent: 05/02/2024 07:35:57 EST Show up: 09/30/2024 08:35:00 EDT Subject: 6 mo ISAI Due Date/Time: 10/30/2024 08:35:00 EDT Reminder Message Please Remember to:_Please schedule pt for 6 mo ISAI. She will also need a KUB for her 6 mo appt. Thanks! PATIENT RELATED REMINDER:_ ( ) Call Patient ( ) Ask Patient to ( ) Call Relative ( ) Schedule Patient ( ) Follow up on Results ( ) Other: PROVIDER RELATED REMINDER:_ ( ) Car Sealer ( ) Call Pharmacy ( ) Call Lab ( ) Other: Special Instructions:_ Comments:_ Normal [facility] Urology Office/Clinic Noteon 05-02-2024 Urology Office/Clinic Note Urology Office/Clinic Note Chief Complaint Cysto/stent removal HPI Staff Pt here for cysto, R stent removal. S/p cysto, R stent placement, R ESWL 03/19/24. KUB 04/03/24 - Interval lithotripsy with fragmentation appearance of a RLP nephrolith and proximal ureterolithiasis. S/p cysto, R RPG, URS, laser litho, stone extraction, R stent exchange 04/23/24. History of Present Illness Tests reviewed: op notes, stone analysis I have reviewed the previous health record information and history for this patient from Dr. Carson. I have reviewed and verified the staff [...] See HPI. Physical Exam Vitals & Measurements HT: 62 in HT: 158 cm WT: 84 kg WT: 185.188 lb BMI: 33.65 General Appearance: alert , no acute distress, well nourished, well developed female. Genitourinary: bladder nonpalpable, no flank pain. Procedure Operative Information Anesthesia Type: Local Procedure: Local Cystoscopy with Stent Removal Complications: None Surgical risks, benefits, details of the procedure have been explained to the patient. Full informed consent has been obtained. Intraoperative Information Prepped: Patient is placed in supine/frog leg position. The patient was prepped with the Betadine solution. Anesthesia: 2% Xylocaine Jelly per urethra. Procedure: Cystoscopy and right stent removal. The flexible Cystoscope was passed in retrograde fashion into the bladder without difficulty. The bladder was viewed in entirety and found to be without tumors or stones. Mild inflammation was seen surrounding the orifice with the stent seen protruding from it. The stent was then grasped and removed in its entirety. Specimens Removed: None Postoperative Information The patient tolerated the procedure well and was subsequently discharged home. Assessment/Plan 69 yo following up to two stone procedures, here for cysto, R stent removal. 1. Foreign body in bladder (T19.1XXA: Foreign body in bladder, initial encounter) S/p cysto, R stent placement, R ESWL 03/19/24. S/p cysto, R RPG, URS, laser litho, stone extraction, R stent exchange 04/23/24. Pt had IO cysto, R stent removal today wo complications. 2. Kidney stones (N20.0: Calculus of kidney) CT AP wo con 01/26/24 [facility] - R renal pelvis stone 1.8 x 1.6 cm. No significant dilatation of R kidney. Another nonobstructing calculus in mid R kidney measuring 7 mm. No L renal or ureteral stones or hydro. KUB 02/15/24 [facility] - 18 mm stone in R renal pelvis and 7 mm stone in mid body. No visible L renal or ureteral calcifications. S/p cysto, R stent placement, R ESWL 03/19/24. Stone analysis - 50% CaOx di, 40% CaOx mono, hydroxyapatite 10%. KUB 04/03/24 - Interval lithotripsy with fragmentation appearance of a RLP nephrolith and proximal ureterolithiasis. S/p cysto, R RPG, URS, laser litho, stone extraction, R stent exchange 04/23/24 - Mild hydro at end of case. Stone analysis - 70% CaOx di, 20% CaOx mono, 10% Ca phos hydroxyl. Discussed metabolic workup including 24 hour urine and blood work for stone prevention. Deferred at this time. Follow up 6 mos with ISAI and KUB for stone monitoring or sooner if needed. Pt understands and agrees with plan. -ISAI in 6-8 wks to ensure no silent obstruction (recalled). Will call with results. -Steroids and Benadryl for future procedures given severe contrast allergy -Consider metabolic workup after procedure - declines at this time, states it was from excess beets. Consider d/c topamax in future if stones cont 3. Gross hematuria (R31.0: Gross hematuria) likely due to large renal stone. [1] Cysto 03/19/24 and 04/23/24 both neg for bladder tumors/lesions/ston es. -Monitor for resolution s/p stone surgery and stent removal. 4. History of UTI (Z87.440: Personal history of urinary (tract) infections) UCx 01/26/24 - >100k E. coli, tx'd w/ Cipro x7d. Declined estrace cream, consider if recurrent 5. History of kidney stones (Z87.442: Personal history of urinary calculi) Hx of right kidney stone, requiring lithotripsy in the distant past, 40 yrs ago [2]. 6. Former smoker (Z87.891: Personal history of nicotine dependence) Age 18-19. Low risk factor for urothelial ca. [3] 7. 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 We discussed presence of vaginal atrophy. I explained the lack of estrogen secondary to menopau (more content not included)... Normal [facility] Comment on above: Result Comment: Elec tronically Signed By: Alli CASTILLO, Tayla Vallejo\.br\Date and Time Signed: 05/02/24 07:40 EST\.br\Electronically Co-Signed By: Shauna Hernandez\.br\Date and Time Co-Signed: 05/02/24 07:34 EST Calculus Analysison 04-26-20 Calcium oxalate dihydrate Infrared spectroscopy (Stone) [Mass fraction] 50 % Invalid Interpretation Code [facility] Comment on above: Performed By: #### 1 [id number] #### [facility] [address] [place] [address] Calcium oxalate monohydrate (Stone) [Mass fraction] 40 % Invalid Interpretation Code [facility] Comment on above: Performed By: #### 1 [id number] #### [facility] [address] [facility] [place] [address] Calculus analysis [Interp] Comment Invalid Interpretation Code [facility] Comment on above: Result Comment: Calc ium phosphate (hydroxyl form) includes hydroxyapatite, amorphous calcium phosphate, and whitlockite. Hydroxyapatite is the most common of the calcium phosphate salts found in human kidney stones. Performed By: #### 1 [id number] #### [facility] [address] [place] [address] Color (Stone) Green Invalid Interpretation Code [facility] Comment on above: Performed By: #### 1 [id number] #### [facility] [address] [facility] [place] [address] Composition Comment Invalid Interpretation Code [facility] Comment on above: Result Comment: Perc entage (Represents the % composition) Performed By: #### 1 [id number] #### [facility] [address] [place] [address] Disclaimer: Comment Invalid Interpretation Code [facility] Comment on above: Result Comment: This test was developed and its performance characteristics determined by [facility]. It has not been cleared or approved by the Food and Drug Administration. Performed at: [address] [id number] PhD Chrissy Bonner Performed By: #### 1 [id number] #### [facility] [address] [place] [address] Hydroxyapatite: 10 % Invalid Interpretation Code [facility] Comment on above: Performed By: #### 1 [id number] #### [facility] [address] [place] [address] Laboratory comment Izaiah (Report) Comment Invalid Interpretation Code [facility] Comment on above: Result Comment: Jennifer frank questions regarding Calculi Analysis [facility] at: [phone]. Performed By: #### 1 [id number] #### [facility] [address] [place] [address] Please Note: Comment Invalid Interpretation Code [facility] Comment on above: Result Comment: Calc mc report will follow via computer, mail or ward helper delivery. Performed By: #### 1 [id number] #### [facility] [address] [place] [address] Size (Stone) [Entitic vol] 1x1 Invalid Interpretation Code [facility] Comment on above: Result Comment: Mult iple pieces received. Dimensions of the largest piece reported. Performed By: #### 1 [id number] #### [facility] [address] [place] [address] Specimen source subject Nom Comment Invalid Interpretation Code [facility] Comment on above: Result Comment: Not provided Performed By: #### 1 [id number] #### [facility] [address] [place] [address] Stone Photo Comment Invalid Interpretation Code [facility] Comment on above: Result Comment: Phot ograph will follow under a separate cover Performed By: #### 1 [id number] #### [facility] [address] [place] [address] Weight (Stone) 118 mg Invalid Interpretation Code [facility] Comment on above: Performed By: #### 1 [id number] #### [facility] [address] [place] [address] C Urineon 04-19-2024 Bacteria identified Cx Nom (U) Microbiology PROCEDURE: Urine Culture [R1] SOURCE: U CleanCatch BODY SITE: COLLECTED DATE/TIME: 04/17/2024 15:29 EDT RECEIVED DATE/TIME: 04/17/2024 17:30 EDT START DATE/TIME: 04/17/2024 17:30 EDT FREE TEXT SOURCE: Alli CASTILLO, Tayla Carson MD, Tayla Vallejo FINAL REPORTS Final Report [] Verified Date/Time: 04/19/2024 10:15 EDT 1,000 cfu/ml Mixed skin contaminants Performing Locations R1: This test was performed at: [facility], [address] [place] [address], [id number]- , [place], Normal [facility] Comment on above: Performed By: #### 2 [id number] #### [facility] [address] [place] [address] Ambulatory Visit Summaryon 1 Ambulatory Visit Summary Ambulatory Visit Summary DEV PHIPPS :1955 Visit Date:04/17/2024 Ambulatory Visit Instructions Your Care Team Attending Physician - Alli CASTILLO, Tayla Vallejo Primary Care Physician - LALA CASTILLO CNP This Is Your Medications List albuterol (Albuterol (Eqv-ProAir HFA) 90 mcg/inh inhalation [...] mg Tab) topiramate (topiramate 50 mg Tab) Medications What How Much When Instructions Unchanged albuterol (Albuterol (Eqv-ProAir HFA) 90 mcg/ inh inhalation aerosol) 2 Puffs inhale 1 puff by mouth and INTO THE LUNGS every 6 hours if needed Unchanged albuterol (albuterol 0.083% Inh Francisca 3 mL) 3 Milliliter INHALE CONTENTS OF 1 VIAL IN NEBULIZER EVERY 6 HOURS IF NEEDED Unchanged amlodipine (amLODIPine 10 mg Tab) 1 Tablets TAKE 1 TABLET BY MOUTH ONCE DAILY Unchanged cyanocobalamin (Vitamin B12) Unchanged ezetimibe (ezetimibe 10 mg Tab) 1 Tablets take 1 tablet by mouth once daily at bedtime for 90 DAYS Unchanged levothyroxine (levothyroxine 88 mcg (0.088 mg) oral capsule) 1 Capsules take 1 capsule by mouth every morning Unchanged lisinopril (lisinopril 40 mg Tab) 1 Tablets By Mouth Every day Unchanged magnesium gluconate (magnesium gluconate 250 mg oral tablet) By Mouth 2 times a day Unchanged menaquinone (K2 Liquid) By Mouth Every day Unchanged multivitamin with minerals (ABDEK oral capsule) By Mouth Every day Unchanged sertraline (sertraline 100 mg Tab) 1 Tablets take 1 tablet by mouth once daily Unchanged topiramate (topiramate 50 mg Tab) 1 Tablets By Mouth 2 times a day Allergies amoxicillin (Rash) cephalexin (Rash) contrast media [...] you for choosing us for your care. Normal [facility] C Urineon 02-22-2024 Bacteria identified Cx Nom [...] Locations R1: This test was performed at: [facility], [address] [place] [address], [id number]- , [place], Normal [facility] Comment on above: Performed By: #### 2 [id number] #### [facility] [address] [place] [id number] Ambulatory Visit Summaryon 0 02-20-2024 Ambulatory Visit [...] Vallejo, URL, URO When: Where: [address] [place] [phone] Medications What How Much When Instructions Unchanged [...] these instructions at home: Medicines ? Take jeda-fbk-luajhza and prescription medicines only as told by [...] keep your pee pale yellow. ? Take oxpj-yqz-tiauyhf or prescription medicines. ? Eat foods that are high in fiber, such as beans, whole grains, and fresh fruits and vegetables. ? Limit foods that are high in fat and processed sugars, such as fried or sweet foods. (more content not included)... Normal [facility] Urology Office/Clinic Noteon 02-20-2024 Urology Office/Clinic Note Urology Office/Clinic Note Chief Complaint [facility] ED f/u HPI Staff New pt f/u from [facility] ED visit 01/26/24 with complaints of [...] stones new pt here for f/u to [facility] ER due to right flank pain, [...] has been (more content not included)... Normal [facility] Comment on above: Result Comment: Elec tronically Signed By: Tayla Carson MD\.br\Date and Time Signed: 02/20/24 09:29 EDT\.br\Electronically Co-Signed By: Roxanne Osei\.br\Date and Time Co-Signed: 02/20/24 09:03 EDT No Panel InformationOrdered By: Kylah Galeana on 08-08-2023 COVID/Influenza Antigen (POC) [facility] COVID/Influenza Antigen (POC) [facility] COVID + FLU Quick Testingon 07-13-2023 SARS-CoV-2 (COVID-19) RNA ZAINAB+probe Ql (Unsp spec) negativ [employer] Other COVID + FLU Quick Testing Negative [employer] Other Quick Strepon 07-13-2023 S. pyogenes Org specific cx Ql (Throat) Negative [employer] Other Quick Strep [employer] Other Consenton 04-20-2023 Consent [id number] 330#[id number] Normal [facility] Registrationon 04-20-2023 Registration [id number] Normal [facility] Glucose Tolerance Test 2 [address] 10-11-2021 FGLU 104 mg/dL High 65-99 [facility] [employer] Comment on above: Result Comment: Acco rding to ADA: Fasting Glucoe Normal 65-99 mg/dl Prediabetes 100-125 mg/dl Diabetes >/= 126 Performed By: #### G TT2H FE Prof #### [facility] [address] [place], [place] [id number] GLU1H 215 mg/dL Normal [facility] [employer] Comment on above: Performed By: #### G TT2H FE Prof #### [facility] [address] [place], [place] [id number] GLU2H 200 mg/dL Normal [facility] [employer] Comment on above: Performed By: #### G TT2H FE Prof #### [facility] [address] [place], [place] [id number] Hemoglobin A1Con 10-11-2021 EAG 93.93 Normal [facility] Comment on above: Performed By: #### A 1C #### [facility] [address], [place] [id number] HbA1c (Bld) [Mass fraction] 4.9 % Normal 4.0-6.0 [facility] Comment on above: Performed By: #### A 1C #### [facility] [address], [place] [id number] Iron Profileon 10-11-2021 %FESAT 31 % Normal 11-50 [facility] Comment on above: Performed By: #### G TT2H FE Prof #### [facility] [address], [place] [id number] FE 76 ug/dL Normal 40-190 [facility] Comment on above: Result Comment: Refe rence range change 05/04/2017. Prior reference range F 37-145 ug/dL, M 59-158 ug/dL. Performed By: #### G TT2HMARK Prof #### [facility] [address], [place] [id number] TIBC 249 ug/dL Low 250-450 [facility] Comment on above: Performed By: #### G TT2H FE Prof #### [facility] [address], [place] [id number] UIBC 173 ug/dL Normal 112-347 [facility] Comment on above: Performed By: #### G BAR2MARK Mike Prof #### [facility] [address], [place] [id number] Complete Blood Count with Au to Diffon 07-20-2021 Basophils (Bld) [#/Vol] 0.02 10*3/uL Normal 0.00-0.20 [facility] Comment on above: Performed By: #### F ERR, CBCAD, LIPD, CMP #### [facility] [address], [place] [id number] Basophils/100 WBC (Bld) 0.3 % Normal [facility] Comment on above: Performed By: #### F ERR, CBCAD, LIPD, CMP #### [facility] [address], [place] [id number] Eosinophils (Bld) [#/Vol] 0.30 10*3/uL Normal 0.02-0.50 [facility] Comment on above: Performed By: #### F ERR, CBCAD, LIPD, CMP #### [facility] [address], [place] [id number] Eosinophils/100 WBC (Bld) 4.2 % Normal [facility] Comment on above: Performed By: #### F ERR, CBCAD, LIPD, CMP #### [facility] [address], [place] [id number] Erythrocyte distribution width (RBC) [Ratio] 13.7 % Normal 11.0-15.0 [facility] Comment on above: Performed By: #### F ERR, CBCAD, LIPD, CMP #### [facility] [address], [place] [id number] Hematocrit (Bld) [Volume fraction] 39.0 % Normal 35.0-47.0 [facility] Comment on above: Performed By: #### F ERR, CBCAD, LIPD, CMP #### [facility] [address], [place] [id number] Hemoglobin (Bld) [Mass/Vol] 13.3 g/dL Normal 11.6-15.5 [facility] Comment on above: Performed By: #### F ERR, CBCAD, LIPD, CMP #### [facility] [address], [place] [id number] Lymphocytes (Bld) [#/Vol] 3.0 10*3/uL Normal 0.9-3.9 [facility] Comment on above: Performed By: #### F ERR, CBCAD, LIPD, CMP #### [facility] [address], [place] [id number] Lymphocytes/100 WBC (Bld) 42.1 % Normal [facility] Comment on above: Performed By: #### F ERR, CBCAD, LIPD, CMP #### [facility] [address], [place] [id number] MCH (RBC) [Entitic mass] 31.0 pg Normal 27.0-33.0 [facility] Comment on above: Performed By: #### F ERR, CBCAD, LIPD, CMP #### [facility] [address], [place] [id number] MCHC (RBC) [Mass/Vol] 34.1 g/dL Normal 32.0-36.0 [facility] Comment on above: Performed By: #### F ERR, CBCAD, LIPD, CMP #### [facility] [address], [place] [id number] MCV (RBC) [Entitic vol] 91 fL Normal 80-100 [facility] Comment on above: Performed By: #### F ERR, CBCAD, LIPD, CMP #### [facility] [address], [place] [id number] Monocytes (Bld) [#/Vol] 0.5 10*3/uL Normal 0.2-0.9 [facility] Comment on above: Performed By: #### F ERR, CBCAD, LIPD, CMP #### [facility] [address], [place] [id number] Monocytes/100 WBC (Bld) 7.6 % Normal [facility] Comment on above: Performed By: #### F ERR, CBCAD, LIPD, CMP #### [facility] [address], [place] [id number] Neutrophils (Bld) [#/Vol] 3.2 10*3/uL Normal 1.5-7.8 [facility] Comment on above: Performed By: #### F ERR, CBCAD, LIPD, CMP #### [facility] [address], [place] [id number] Neutrophils/100 WBC (Bld) 45.1 % Normal [facility] Comment on above: Performed By: #### F ERR, CBCAD, LIPD, CMP #### [facility] [address], [place] [id number] Platelet mean volume (Bld) [Entitic vol] 9.30 fL Normal 7.50-12.50 [facility] Comment on above: Performed By: #### F ERR, CBCAD, LIPD, CMP #### [facility] [address], [place] [id number] Platelets (Bld) [#/Vol] 256 10*3/uL Normal 140-400 [facility] Comment on above: Performed By: #### F ERR, CBCAD, LIPD, CMP #### [facility] [address], [place] [id number] RBC (Bld) [#/Vol] 4.29 10*6/uL Normal 3.90-5.20 [facility] Comment on above: Performed By: #### F ERR, CBCAD, LIPD, CMP #### [facility] [address], [place] [id number] RDW-SD 44.8 fL Normal 37.0-50.0 [facility] Comment on above: Performed By: #### F ERR, CBCAD, LIPD, CMP #### [facility] [address], [place] [id number] WBC (Bld) [#/Vol] 7.1 10*3/uL Normal 3.8-11.0 [place] [employer] [facility] Comment on above: Performed By: #### F ERR, CBCAD, LIPD, CMP #### [facility] [address], [place] [id number] Comprehensive Metabolic Pane alberta 07-20-2021 Albumin [Mass/Vol] 4.1 g/dL Normal 3.6-5.1 [place] [employer] Comment on above: Performed By: #### F ERR, CBCAD, LIPD, CMP #### [facility] [address], [place] [id number] Albumin/Globulin [Mass ratio] 2.0 {ratio} Normal 1.0-2.5 [facility] [employer] Comment on above: Performed By: #### F ERR, CBCAD, LIPD, CMP #### [facility] [address], [place] [id number] ALP [Catalytic activity/Vol] 62 U/L Normal 35-119 [facility] [employer] Comment on above: Performed By: #### F ERR, CBCAD, LIPD, CMP #### [facility] [address], [place] [id number] ALT [Catalytic activity/Vol] 22 U/L Normal 6-33 [facility] [employer] Comment on above: Result Comment: 05/18 Female reference range changed. Performed By: #### F ERR, CBCAD, LIPD, CMP #### [facility] [address], [place] [id number] Anion gap [Moles/Vol] 16 mmol/L Normal 12-20 [facility] Comment on above: Result Comment: Effe ctive 06/23/2019 reference range changed. Performed By: #### F ERR, CBCAD, LIPD, CMP #### [facility] [address], [place] [id number] AST [Catalytic activity/Vol] 16 U/L Normal 9-34 [facility] [employer] Comment on above: Performed By: #### F ERR, CBCAD, LIPD, CMP #### [facility] [address], [place] [id number] Bilirubin [Mass/Vol] 0.41 mg/dL Normal 0.30-1.20 [facility] Comment on above: Performed By: #### F ERR, CBCAD, LIPD, CMP #### [facility] [address], [place] [id number] BUN/CREA 20 Ratio Normal 6-22 [facility] Comment on above: Performed By: #### F ERR, CBCAD, LIPD, CMP #### [facility] [address], [place] [id number] Calcium [Mass/Vol] 9.2 mg/dL Normal 8.6-10.2 [facility] Comment on above: Performed By: #### F ERR, CBCAD, LIPD, CMP #### [facility] [address], [place] [id number] Chloride [Moles/Vol] 108 mmol/L High 98-107 [facility] Comment on above: Performed By: #### F ERR, CBCAD, LIPD, CMP #### [facility] [address], [place] [id number] CO2 [Moles/Vol] 21 mmol/L Normal 20-31 [facility] Comment on above: Performed By: #### F ERR, CBCAD, LIPD, CMP #### [facility] [address], [place] [id number] Creatinine [Mass/Vol] 0.8 mg/dL Normal 0.6-1.4 [facility] Comment on above: Performed By: #### F ERR, CBCAD, LIPD, CMP #### [facility] [address] [facility] [place] [id number] eGFRAA 93 mL/min/1.73m2 Normal >60 [facility] Comment on above: Performed By: #### F ERR, CBCAD, LIPD, CMP #### [facility] [address], [place] [id number] eGFRNAA 77 mL/min/1.73m2 Normal >60 [place] [employer] Comment on above: Performed By: #### F ERR, CBCAD, LIPD, CMP #### [facility] [address], [place] [id number] Globulin (S) [Mass/Vol] 2.1 g/dL Normal 1.9-3.7 [facility] [employer] Comment on above: Performed By: #### F ERR, CBCAD, LIPD, CMP #### [facility] [address], [place] [id number] Glucose [Mass/Vol] 126 mg/dL High 65-99 [place] [employer] Comment on above: Result Comment: For FASTING Glucose --- ADA reference ranges: Normal 65-99 mg/dl Prediabetes 100-125 Diabetes >/= 126 Performed By: #### F ERR, CBCAD, LIPD, CMP #### [facility] [address], [place] [id number] Potassium [Moles/Vol] 3.7 mmol/L Normal 3.5-5.5 [facility] [employer] [facility] Comment on above: Performed By: #### F ERR, CBCAD, LIPD, CMP #### [facility] [address], [place] [id number] Protein [Mass/Vol] 6.2 g/dL Normal 6.1-8.1 [place] [facility] [employer] Comment on above: Performed By: #### F ERR, CBCAD, LIPD, CMP #### [facility] [address], [place] [id number] Sodium [Moles/Vol] 141 mmol/L Normal 135-146 [facility] Comment on above: Performed By: #### F ERR, CBCAD, LIPD, CMP #### [facility] [address], [place] [id number] Urea nitrogen [Mass/Vol] 15 mg/dL Normal 7-25 [facility] [employer] Comment on above: Performed By: #### F ERR, CBCAD, LIPD, CMP #### [facility] [address], [place] [id number] Ferritinon 07-20-2021 FERR 361.3 ng/mL High 15.0-150.0 [facility] [employer] Comment on above: Performed By: #### F ERR, CBCAD, LIPD, CMP #### [facility] [address], [place] [id number] Lipid Panelon 07-20-2021 Cholesterol [Mass/Vol] 161 mg/dL Normal 125-200 [facility] on above: Result Comment: Low risk < 200mg/dL Borderline risk 201-239 mg/dl High risk > or equal to 240 Performed By: #### F ERR, CBCAD, LIPD, CMP #### [facility] [address], [place] [id number] Cholesterol in HDL [Mass/Vol] 36 mg/dL Low >40 [facility] Comment on above: Result Comment: High Cardiovascular Risk HDL <40 mg/dL Low Cardiovascular Risk HDL > or equal to 60 mg/dl Performed By: #### F ERR, CBCAD, LIPD, CMP #### [facility] [address], [place] [id number] Cholesterol in LDL [Mass/Vol] 87 mg/dL Normal [facility] Comment on above: Result Comment: LDL ATP III CLASSIFICATION LDL less than 100 mg/dl Optimal LDL 100-129 mg/dl Near or above optimal LDL 130-159 Borderline high LDL 160-189 High LDL greater than 189 mg/dl Very High Performed By: #### F ERR, CBCAD, LIPD, CMP #### [facility] [address], [place] [id number] Cholesterol in VLDL [Mass/Vol] 38 mg/dL Normal [facility] Comment on above: Performed By: #### F ERR, CBCAD, LIPD, CMP #### [facility] [address], [place] [id number] Cholesterol.total/Chol esterol in HDL [Mass ratio] 4 {ratio} Normal [facility] Comment on above: Performed By: #### F ERR, CBCAD, LIPD, CMP #### [facility] [address], [place] [id number] Triglyceride [Mass/Vol] 191 mg/dL High 30-150 [facility] Comment on above: Result Comment: TRIG ATPIII CLASSIFICATIONS TRIG less than 150 mg/dl Normal TRIG 150-199 mg/dl Borderline High TRIG 200-500 mg/dl High TRIG greather than 500 mg/dl Very High Performed By: #### F ERR, CBCAD, LIPD, CMP #### [facility] [address], [place] [id number] [facility] SARS-CoV-2 (COVID-19) RNA ZAINAB+probe Ql (Unsp spec) Detected Critically abnormal NOT DETECTED [facility] Comment on above: Result Comment: This test is not yet approved or cleared by the [place] FDA. When there are no FDA-approved or cleared tests available, and other criteria are met, FDA can make tests available under an emergency access mechanism called an Emergency Use Authorization (EUA). The EUA for this test is supported by the [place] of Health and Human Service's (HHS's) declaration [...] used). Performed By: #### C VDTBH #### [facility] [address] [place], [place] [address] Dr. Liat Walker Free T3on 06-02-2021 FT3 3.56 pg/mL Normal 2.00-4.40 [facility] [employer] Comment on above: Performed By: #### F T4, TSH, FT3 #### [facility] [address], [place] [id number] Free T4on 06-02-2021 Free T4 [Mass/Vol] 0.80 ng/dL Normal 0.80-1.80 [facility] Comment on above: Performed By: #### F T4, TSH, FT3 #### [facility] [address], [place] [id number] Q - T3 TOTALon 06-02-2021 T3, TOTAL 123 ng/dL Normal 76-181 [facility] Comment on above: Order Comment: [facility] performed at: ANY, [facility], [address] [facility], [address] [place], [address], [employer] Specialist: Phil Gilbert MDQuest Collection Date/Time: [id number] Results Received Date/Time: [id number] Reported Date/Time: Performed By: #### F T4, TSH, FT3 #### [facility] [address], [place] [id number] Q - T3,REVERSE,LC/MS/MSon T3 REVERSE, LC/MS/MS 10 ng/dL Normal 8-25 [facility] Comment on above: Order Comment: [facility] performed at: [facility], [facility], [address], [place], [place], , [employer] Specialist: Vasquez Morales M.D.,PhDQuest Collection Date/Time: [id number] Results Received Date/Time: [id number] Reported Date/Time: Result Comment: This test was developed and its analytical performance characteristics have been determined by [facility] [place], [place]. It has not been cleared or approved by the [place]. Food and Drug Administration. This assay has been validated pursuant to the CLIA regulations and is used for clinical purposes. Performed By: #### F T4, TSH, FT3 #### [facility] [address], [place] [id number] TSHon 06-02-2021 TSH 2.580 uIU/mL Normal 0.400-4.500 [facility] [employer] Comment on above: Performed By: #### F T4, TSH, FT3 #### [facility] [address], [place] [id number] Vital Signs Date Time Vital Sign Value Performing Clinician Debbie nevarez 03-27-2024 14:28-0400 Body height 157.5 cm Alberta Sharp [employer] Work Phone: [facility] [employer] 03-27-2024 14:28-0400 Body mass index (BMI) [Ratio] 34.75 kg/m2 Alberta Sharp DO Work Phone: [facility] 03-27-2024 14:28-0400 Body weight 86.18 kg Christopher Aron DO Work Phone: [facility] 03-27-2024 14:28-0400 Diastolic blood pressure 89 mm[Hg] Christopher Aron DO Work Phone: [facility] 03-27-2024 14:28-0400 Heart rate 71 /min Christopher Arno DO Work Phone: [facility] 03-27-2024 14:28-0400 SaO2% (BldA) [Mass fraction] 94 % Christopher Aron DO Work Phone: [facility] 03-27-2024 14:28-0400 Systolic blood pressure 150 mm[Hg] Christopher Aron DO Work Phone: [facility] 02-20-2024 08:15-0400 Blood Pressure Location Tayla Lue [facility] 02-20-2024 08:15-0400 Diastolic blood pressure 72 mm[Hg] Tayla Lue [facility] 02-20-2024 08:15-0400 Heart rate 78 /min Tayla Lue [facility] 02-20-2024 08:15-0400 Systolic blood pressure 128 mm[Hg] Tayla Lue [facility] 09-03-2023 11:43-0400 Body height 157.48 cm [facility] 09-03-2023 11:43-0400 Body mass index (BMI) [Ratio] 34.7 kg/m2 [facility] 09-03-2023 11:43-0400 Body temperature 97.1 [degF] [facility] 09-03-2023 11:43-0400 Body weight 86.18 kg [facility] 09-03-2023 11:43-0400 Heart rate 75 /min [facility] 09-03-2023 11:43-0400 Respiratory rate 18 /min [facility] 09-03-2023 11:43-0400 SaO2% (BldA) [Mass fraction] 95 % [facility] 08-08-2023 10:20-0500 Body height 157.48 cm [facility] 08-08-2023 10:20-0500 Body mass index (BMI) [Ratio] 35.2 kg/m2 [facility] 08-08-2023 10:20-0500 Body temperature 97.5 [degF] [facility] 08-08-2023 10:20-0500 Body weight 87.23 kg [facility] 08-08-2023 10:20-0500 Diastolic blood pressure 80 mm[Hg] [facility] 08-08-2023 10:20-0500 Heart rate 73 /min [facility] 08-08-2023 10:20-0500 Respiratory rate 16 /min [facility] 08-08-2023 10:20-0500 SaO2% (BldA) [Mass fraction] 98 % [facility] 08-08-2023 10:20-0500 Systolic blood pressure 124 mm[Hg] [facility] 07-13-2023 16:45-0500 Body height 157.48 cm Kylah Galeana Other [facility] 07-13-2023 16:45-0500 Body mass index (BMI) [Ratio] 35.66 kg/m2 Kylah Galeana Other [employer] [facility] [employer] Other 07-13-2023 16:45-0500 Body temperature 98.8 [degF] Kylah Galeana Other [employer] Other 07-13-2023 16:45-0500 Body weight 88.45 kg Kylah Galeana Other [facility] 07-13-2023 16:45-0500 Diastolic blood pressure 80 mm[Hg] Kylah Lissett Other [facility] 07-13-2023 16:45-0500 Respiratory rate 18 /min Kylah Lissett Other [employer] Other 07-13-2023 16:45-0500 SaO2% (BldA) [Mass fraction] 96 % Kylah Lissett Other [employer] Other 07-13-2023 16:45-0500 Systolic blood pressure 149 mm[Hg] Kylah Lissett Other [facility] 05-03-2022 16:05-0500 Body height 156.84 cm Kylah Lissett Other [employer] Other 05-03-2022 16:05-0500 Body mass index (BMI) [Ratio] 34.29 kg/m2 Kylah Lissett Other [employer] Other 05-03-2022 16:05-0500 Body temperature 96.8 [degF] Kylah Lissett Other [employer] Other 05-03-2022 16:05-0500 Body weight 84.37 kg Kylah Lissett Other [employer] Other 05-03-2022 16:05-0500 Respiratory rate 18 /min Kylah Lissett Other [employer] Other 05-03-2022 16:05-0500 SaO2% (BldA) [Mass fraction] 96 % Kylah Lissett Other [employer] Other Encounters Encounter Date Encounter Type Care Provider Facility Start: 11-05-2024 ambulatory Tayla M. Lue Facility:[facility] Start: 05-02-2024 End: 05-02-2024 ambulatory Tayla M. Lue Facility:[facility] Start: 05-02-2024 End: 05-02-2024 Patient encounter procedure Tayla M. Lue [facility] Start: 04-23-2024 End: 04-23-2024 ambulatory Tayla M. Lue Facility:CD:[id number] Start: 04-17-2024 End: 04-17-2024 ambulatory Tayla M. Lue Facility:[facility] Start: 04-17-2024 End: 04-17-2024 Lab Drop off Tayla M. Lue [facility] Start: 04-17-2024 End: 04-17-2024 ambulatory Tayla M. Lue Facility:[facility] Start: 04-17-2024 End: 04-17-2024 Patient encounter procedure Tayla M. Lue [facility] Start: 03-27-2024 End: 03-27-2024 Office outpatient new 45 minutes Christopher Aron DO Work Phone: [employer] [address] [facility] Comment on above: Ataxia (Primary Dx); Visual disturbance; Tremor Start: 03-27-2024 End: 03-27-2024 ambulatory CHRISTOPHER ARON Not Available Start: 03-27-2024 End: 03-27-2024 Bamboo flowsheet Christopher Aron DO Work Phone: [facility] [employer] [address] Start: 03-27-2024 End: 03-27-2024 Bamboo flowsheet Christopher Aron DO Work Phone: [facility] [employer] [address] Start: 03-19-2024 End: 03-19-2024 ambulatory Tayla M. Lue Facility:[facility] Start: 03-19-2024 End: 03-19-2024 Off-Site Tayla Carson [facility] Start: 02-20-2024 End: 02-20-2024 ambulatory Tayla Carson Facility:[facility] Start: 02-20-2024 End: 02-20-2024 Lab Drop off Tayla Carson [facility] Start: 02-20-2024 End: 02-20-2024 ambulatory Tayla Carson Facility:[facility] Start: 02-20-2024 End: 02-20-2024 Patient encounter procedure Tayla Carson [facility] Start: 01-28-2024 ambulatory Singh HARRIS Facilit y:[facility] Start: 09-03-2023 End: 09-03-2023 ambulatory [facility] Work Phone: Start: 09-03-2023 End: 09-03-2023 Patient encounter procedure [facility] Work Phone: Start: 08-08-2023 End: 08-08-2023 ambulatory [facility] Work Phone: Start: 08-08-2023 End: 08-08-2023 Patient encounter procedure [facility] Work Phone: Start: 07-13-2023 End: 07-13-2023 ambulatory Kylah Galeana Other [employer] Other Start: 07-13-2023 Office outpatient visit 15 minutes Kylah Galeana [facility] Start: 07-13-2023 End: 07-13-2023 Patient encounter procedure [facility] Start: 04-20-2023 End: 04-20-2023 ambulatory Singh HARRIS Facility:[facility] Start: 05-03-2022 End: 05-03-2022 ambulatory Kylah Galeana Other [employer] Other Start: 05-03-2022 Office outpatient ne w 20 minutes Kylah Galeana [facility] Start: 06-17-2021 End: 06-17-[address] CECIL KNOX Facility:[facility] Procedures Date Procedure Procedure Detail Performing Clinician Start: 08-08-2023 COVID/Influenza Antigen (POC) Plan of Treatment Date Care Activity Detail Author Start: 04-23-2024 End: 04-23-2024 Patient encounter procedure 04/23/2024 3:00 PM EST Office [facility] [address] [place] [phone] Alberta Sharp DO [address] [place] [id number] [facility] [address] [facility] Start: 03-27-2024 End: 03-27-2024 Patient encounter procedure 03/27/2024 2:30 PM EDT Office Visit [facility] [address] [phone] Alberta Sharp DO [address] [place] [id number] Arrived [facility] Comment on above: Arrived Start: 03-27-2024 End: 03-27-2025 MR Brain WO and W contrast IV MR brain w and wo contrast routine Imaging Routine Ataxia Expected: 03/27/2024, Expires: 03/27/2025 [facility] Work Phone: Comment on above: Expected: 03/27/2024 , Expires: 03/27/2025 Start: 02-17-2024 Influenza vaccination Influenza Vacc ine (#1) [facility] Start: 1997 Screening for malign ant neoplasm of breast Mammogram [facility] Start: 1963 Pneumococcal Vaccine : 65+ Years (1 of 2 - PCV) Pneumococcal Vaccine: 65+ Years (1 of 2 - PCV) [facility] Start: 1957 Screening for malign ant neoplasm of colon [facility] Payers Date Payer Category Payer Medicare ANTHEM MEDICARE ADVANTAGE ANTHEM MEDICARE ADVANTAGE [id number] 2023-Present [address] [place] [address] [id number] 2023 Unknown BCBS BCBS [id number] [id number] 2023-Present [phone] [address] [place] [address] [id number] 2023 Blue Cross Blue Shield [id number] 2023 Medicare [id number] 2023 Unknown [id number] 1959 Unknown [id number] 1957 Unknown [id number] 93 1957 Unknown [id number] 27 1957 Unknown [id number] 27 1957 Unknown [id number] 259 1957 Unknown [id number] [id number] 27 1957 Unknown [id number] [id number] 27 1957 Unknown [id number] [id number] 27 1957 Unknown [id number] 1955 Unknown [id number] 1955 Unknown [id number] 27 1955 Unknown [id number] Self-pay Self Pay [id number] Unknown O [id number] Social History Date Type Detail Facility Unknown if ever smoked [employer] Other Sex Assigned At [facility] Start: 1955 Sex Assigned At Female [facility] Start: 09-03-2023 End: 05-01-2024 Tobacco smoking status [facility] Never smoked tobacco (finding) [facility] Tobacco smoking status Never [facility] Tobacco smoking status [facility] Tobacco smoking consumption unknown [facility] Start: 1955 Sex assigned at Not on file [facility] Functional Status Date Assessment Result Facility 05-02-2024 Functional Status N/A [facility] 02-20-2024 Functional Status N/A [facility] Clinical Notes 05-03-2022 to 05-02-2024 DO Itzel Barton 03/27/2024 2:30 PM EDT Note Date & Type Note Facility 05-02-2024 Hospital Discharge instructions Patient Education 05/02/2024 07:27:51 Dietary Guidelines to Help Prevent Kidney Stones Dietary Guidelines to Help Prevent Kidney Stones Kidney stones are deposits of minerals and salts that form inside your kidneys. Your risk of developing kidney stones may be greater depending on your diet, your lifestyle, the medicines you take, and whether you have certain medical conditions. Most people can lower their risks of developing kidney stones by following these dietary guidelines. Your dietitian may give you more specific instructions depending on your overall health and the type of kidney stones you tend to develop. What are tips for following this plan? Reading food labels Choose foods with no salt added or low-salt labels. Limit your salt (sodium) intake to less than 1,500 mg a day. Choose foods with calcium for each meal and snack. Try to eat about 300 mg of calcium at each meal. Foods that contain 200 500 mg of calcium a serving include: ?8 oz (237 mL) of milk, jprnfzn-xlwofinxatsp-xkcnc milk, and calcium-fortifiedfruit juice. Calcium-fortified means that calcium has been added to these drinks. ?8 oz (237 mL) of kefir, yogurt, and soy yogurt. ?4 oz (114 g) of tofu. ?1 oz (28 g) of cheese. ?1 cup (150 g) of dried figs. ?1 cup (91 g) of cooked broccoli. ?One 3 oz (85 g) can of sardines or mackerel. Most people need 1,000 1,500 mg of calcium a day. Talk to your dietitian about how much calcium is recommended for you. Shopping Buy plenty of fresh fruits and vegetables. Most people do not need to avoid fruits and vegetables, even if these foods contain nutrients that may contribute to kidney stones. When shopping for convenience foods, choose: ?Whole pieces of fruit. ?Pre-made salads with dressing on the side. ?Low-fat fruit and yogurt smoothies. Avoid buying frozen meals or prepared deli foods. These can be high in sodium. Look for foods with live cultures, such as yogurt and kefir. Choose high-fiber grains, such as whole-wheat breads, oat bran, and wheat cereals. Cooking Do not add salt to food when cooking. Place a salt shaker on the table and allow each person to add their own salt to taste. Use vegetable protein, such as beans, textured vegetable protein (TVP), or tofu, instead of meat in pasta, casseroles, and soups. Meal planning Eat less salt, if told by your dietitian. To do this: ?Avoid eating processed or pre-made food. ?Avoid eating fast food. Eat less animal protein, including cheese, meat, poultry, or fish, if told by your dietitian. To do this: ?Limit the number of times you have meat, poultry, fish, or cheese each week. Eat a diet free of meat at least 2 days a week. ?Eat only one serving each day of meat, poultry, fish, or seafood. ?When you prepare animal proteins, cut pieces into small portion sizes. For most meat and fish, one serving is about the size of the palm of your hand. Eat at least five servings of fresh fruits and vegetables each day. To do this: ?Keep fruits and vegetables on hand for snacks. ?Eat one piece of fruit or a handful of berries with breakfast. ?Have a salad and fruit at lunch. ?Have two kinds of vegetables at dinner. You may be told to limit foods that are high in a substance called oxalate. These include: ?Spinach (cooked), rhubarb, beets, sweet potatoes, and [place] chard. ?Peanuts. ?Potato chips, tanzanian fries, and baked potatoes with skin on. ?Nuts and nut products. ?Chocolate. If you regularly take a diuretic medicine, make sure to eat at least 1 or 2 servings of fruits or vegetables that are high in potassium each day. These include: ?Avocado. ?Banana. ?[place], prune, carrot, or tomato juice. ?Baked potato. ?Cabbage. ?Beans and split peas. Lifestyle Drink enough fluid to keep your urine pale yellow. This is the most important thing you can do. Spread your fluid intake throughout the day. If you drink alcohol: ?Limit how much you have to: ?0 1 drink a day for women who are not . ?0 2 drinks a day for men. ?Know how much alcohol is in your drink. In the [place] one drink equals one 12 oz bottle of beer (355 mL), one 5 oz glass of wine (148 mL), or one 1 oz glass of hard liquor (44 mL). Lose weight if told by your health care provider. Work with your dietitian to find an eating plan and weight loss strategies that work best for you. General information Talk to your health care provider and dietitian about taking daily supplements. Depending on your health and the cause of your kidney stones, you may be told: ?Do not take high-dose supplements of vitamin C (1,000 mg a day or more). ?To take a calcium supplement. ?To take a daily probiotic supplement. ?To take other supplements such as magnesium, fish oil, or vitamin B6. Take rkls-dcv-cbhhgwo and prescription medicines only as told by your health care provider. These include supplements. What foods should I limit? Limit your intake of the following foods, or eat them as told by your dietitian. Vegetables Spinach. Rhubarb. Beets. Canned vegetables. Pickles. Olives. Baked potatoes with skin. Grains Wheat bran. Baked goods. Salted crackers. Cereals high in sugar. Meats and other proteins Nuts. Nut butters. Large portions of meat, poultry, or fish. Salted, precooked, or cured meats, such as sausages, meat loaves, and hot dogs. Dairy Cheeses. Beverages Regular soft drinks. Regular vegetable juice. Seasonings and condiments Seasoning blends with salt. Salad dressings. Soy sauce. Ketchup. Barbecue sauce. Other foods Canned soups. Canned pasta sauce. Casseroles. Pizza. Lasagna. Frozen meals. Potato chips. [place] fries. The items listed above may not be a complete list of foods and beverages you should limit. Contact a dietitian for more information. What foods should I avoid? Talk to your dietitian about specific foods you should avoid based on the type of kidney stones you have and your overall health. Fruits Grapefruit. The item listed above may not be a complete list of foods and beverages you should avoid. Contact a dietitian for more information. Summary Kidney stones are deposits of minerals and salts that form inside your kidneys. You can lower your risk of kidney stones by making changes to your diet. The most important thing you can do is drink enough fluid. Drink enough fluid to keep your urine pale yellow. Talk to your dietitian about how much calcium you should have each day, and eat less salt and animal protein as told by your dietitian. This information is not intended to replace advice given to you by your health care provider. Make sure you discuss any questions you have with your health care provider. Document Revised: 09/14/2022 Document Reviewed: 09/14/2022 [employer] Patient Education 2023 [employer]. Follow Up Care 04/24/2024 12:17:28 With:Alli CASTILLO, LESTER Stapleton, URO Address: When: Unknown [facility] 05-02-2024 Note Patient Education Nephrology Dietary Guidelines to Help Prevent Kidney Stones Kidney stones are deposits of minerals and salts that form inside your kidneys. Your risk of developing kidney stones may be greater depending on your diet, your lifestyle, the medicines you take, and whether you have certain medical conditions. Most people can lower their risks of developing kidney stones by following these dietary guidelines. Your dietitian may give you more specific instructions depending on your overall health and the type of kidney stones you tend to develop. What are tips for following this plan? Reading food labels ??? Choose foods with no salt added or low-salt labels. Limit your salt (sodium) intake to less than 1,500 mg a day. ??? Choose foods with calcium for each meal and snack. Try to eat about 300 mg of calcium at each meal. Foods that contain 200?500 mg of calcium a serving include: ? 8 oz (237 mL) of milk, qgbcfib-lbmctbbesiea-rjlef milk, and calcium-fortifiedfruit juice. Calcium-fortified means that calcium has been added to these drinks. ? 8 oz (237 mL) of kefir, yogurt, and soy yogurt. ? 4 oz (114 g) of tofu. ? 1 oz (28 g) of cheese. ? 1 cup (150 g) of dried figs. ? 1 cup (91 g) of cooked broccoli. ? One 3 oz (85 g) can of sardines or mackerel. Most people need 1,000?1,500 mg of calcium a day. Talk to your dietitian about how much calcium is recommended for you. Shopping ??? Buy plenty of fresh fruits and vegetables. Most people do not need to avoid fruits and vegetables, even if these foods contain nutrients that may contribute to kidney stones. ??? When shopping for convenience foods, choose: ? Whole pieces of fruit. ? Pre-made salads with dressing on the side. ? Low-fat fruit and yogurt smoothies. ??? Avoid buying frozen meals or prepared deli foods. These can be high in sodium. ??? Look for foods with live cultures, such as yogurt and kefir. ??? Choose high-fiber grains, such as whole-wheat breads, oat bran, and wheat cereals. Cooking ??? Do not add salt to food when cooking. Place a salt shaker on the table and allow each person to add their own salt to taste. ??? Use vegetable protein, such as beans, textured vegetable protein (TVP), or tofu, instead of meat in pasta, casseroles, and soups. Meal planning ??? Eat less salt, if told by your dietitian. To do this: ? Avoid eating processed or pre-made food. ? Avoid eating fast food. ??? Eat less animal protein, including cheese, meat, poultry, or fish, if told by your dietitian. To do this: ? Limit the number of times you have meat, poultry, fish, or cheese each week. Eat a diet free of meat at least 2 days a week. ? Eat only one serving each day of meat, poultry, fish, or seafood. ? When you prepare animal proteins, cut pieces into small portion sizes. For most meat and fish, one serving is about the size of the palm of your hand. ??? Eat at least five servings of fresh fruits and vegetables each day. To do this: ? Keep fruits and vegetables on hand for snacks. ? Eat one piece of fruit or a handful of berries with breakfast. ? Have a salad and fruit at lunch. ? Have two kinds of vegetables at dinner. ??? You may be told to limit foods that are high in a substance called oxalate. These include: ? Spinach (cooked), rhubarb, beets, sweet potatoes, and [place] chard. ? Peanuts. ? Potato chips, tanzanian fries, and baked potatoes with skin on. ? Nuts and nut products. ? Chocolate. ??? If you regularly take a diuretic medicine, make sure to eat at least 1 or 2 servings of fruits or vegetables that are high in potassium each day. These include: ? Avocado. ? Banana. ? [place], prune, carrot, or tomato juice. ? Baked potato. ? Cabbage. ? Beans and split peas. Lifestyle ??? Drink enough fluid to keep your urine pale yellow. This is the most important thing you can do. Spread your fluid intake throughout the day. ??? If you drink alcohol: ? Limit how much you have to: ? 0?1 drink a day for women who are not . ? 0?2 drinks a day for men. ? Know how much alcohol is in your drink. In the [place] one drink equals one 12 oz bottle of beer (355 mL), one 5 oz glass of wine (148 mL), or one 1? oz glass of hard liquor (44 mL). ??? Lose weight if told by your health care provider. Work with your dietitian to find an eating plan and weight loss strategies that work best for you. General information ??? Talk to your health care provider and dietitian about taking daily supplements. Depending on your health and the cause of your kidney stones, you may be told: ? Do not take high-dose supplements of vitamin C (1,000 mg a day or more). ? To take a calcium supplement. ? To take a daily probiotic supplement. ? To take other supplements such as magnesium, fish oil, or vitamin B6. ??? Take gtlp-lac-igunugo and prescription medicines only as told by your health (more content not included)... [facility] 04-17-2024 Evaluation + Plan note Diagnostic Tests PendingUrine Culture 04/17/24 [facility] 04-17-2024 Evaluation + Plan note Diagnostic Tests PendingCalculi Analysis Urinary 04/17/24 [facility] 03-27-2024 History of Present illness Narrative Images [...] , wrist extensors , wrist flexor , cardroom manager strength 5/5. LUE Strength deltoid , biceps , triceps , wrist extensors , wrist flexor , cardroom manager strength 5/5. RLE Strength illopsoas, quadriceps, tibialis [...] and return instructions documented in this encounter [facility] 02-20-2024 Evaluation + Plan note Diagnostic Tests PendingUrine Culture 02/20/24 [facility] 02-20-2024 Hospital Discharge instructions Patient Education 02/20/2024 [...] Follow these instructions at home: Medicines Take moie-yzl-uibbnzu and prescription medicines only as told by [...] to keep your pee pale yellow. ?Take vecz-isv-yeuxtcv or prescription medicines. ?Eat foods that are [...] provider. Document Revised: 02/02/2023 Document Reviewed: 02/02/2023 [employer] Patient Education 2023 [employer]. 02/20/2024 09:00:01 Laser Therapy for Kidney Stones [...] including vitamins, herbs, eye drops, creams, and jvuh-ord-hxsboil medicines. Any problems you or family members [...] unless your provider tells you to. ?Taking mkqs-max-erhowwj medicines, vitamins, herbs, and supplements. Tests You [...] provider. Document Revised: 02/02/2023 Document Reviewed: 02/02/2023 [employer] Patient Education 2023 [employer]. Follow Up Care 01/29/2024 10:22:50 With:Alli CASTILLO, LESTER Stapleton, URO Address: [address], [place] [address]- [phone] When: Unknown [facility] 02-20-2024 Note Patient Education Nephrology Laser [...] these instructions at home: Medicines ? Take ooki-omt-inewcsa and prescription medicines only as told by [...] keep your pee pale yellow. ? Take nzdz-gac-zopopen or prescription medicines. ? Eat foods that [...] provider. Document Revised: 02/02/2023 Document Reviewed: 02/02/2023 [employer] Patient Education ? 2023 [employer]. Laser Therapy for Kidney Stones Laser therapy [...] including vitamins, herbs, eye drops, creams, and jrrr-thz-dcothvb medicines. ? Any problems you or family [...] Do not e (more content not included)... [facility] 07-13-2023 Evaluation note Encounter Date Diagnosis [...] Z20.822) Jun, Sore throat (ICD-10 - J02.9) [employer] Other 11-16-2022 Evaluation note* Encounter Date Diagnosis [...] unspecified otitis media type (ICD-10 - H66.92) [employer] Other Evaluation + Plan note No data available for this section [facility] evaluation + Plan note Future Appointments Appointment Date:11/05/2024 08:00:00 AM Scheduled Provider:Tayla Carson MD Location:[facility] Appointment Type:URO Office Visit [facility] evaluation note* Diagnosis Onset Date Resolution Status Contact with and (suspected) exposure to covid-19 acute COVID-19 [facility] Work Phone: Evaluation note* Diagnosis Onset Date Resolution Status Contact with and (suspected) exposure to covid-19 acute COVID-19 acute Viral URI with cough acute Contact with or exposure to other viral diseases noneactive [facility] Work Phone: Evaluation note* Diagnosis Ataxia- [...] cholecystectomy Hospitalization History multiple stays for asthm [email or web address] Other History general Narrative - Reported* Type Description Date Medical History Hypothyroidism Medical History asthma Medical History seasonal allergies Medical History haris- manuel Surgical History tubal ligation Surgical History appendectomy Surgical History left oophorectomy Surgical History cholecystectomy Surgical History hernia Hospitalization History multiple stays for asthm a [employer] Other Hospital Discharge instructions No data available for this section [facility] Progress note No data available for this section [facility] reason for visit Narrative* Consultation (Routine) - Closed Specialty Diagnoses / Procedures Referred By Contac t Referred To Contact Neurology Diagnoses Headache, unspecified Tremor, unspecified New onset headaches, vision changes, tremors, no testing per pt and ref dr Horace Castillo PAC Procedures DE OFFICE/OUTPATIENT NEW LOW MDM 30 MINUTES NEURO NEW PATIENT Lala Castillo MD [address] [place] [address] Alberta Sharp DO [address] [place] [id number] Referral ID Status Reason Start Date Expiration Date V isits Requested Visits Authorized [id number] Closed Consult and Treat 03/27/2024 09/23/2024 1 1 [facility] Summary Purpose Family History No Family History [...] and content) DATE CREATED AUTHOR 06/24/2021 [facility] DATE CREATED AUTHOR AUTHOR'S ORGANIZ ATION 10/13/2021 [facility] DATE CREATED AUTHOR AUTHOR'S ORGANIZ ATION 02/24/2024 [facility] DATE CREATED AUTHOR AUTHOR'S ORGANIZ ATION 03/21/2024 [facility] DATE CREATED AUTHOR AUTHOR'S ORGANIZ ATION 03/30/2024 [facility]ists [facility] DATE CREATED AUTHOR AUTHOR'S ORGANIZ ATION 04/21/2024 [facility] DATE CREATED AUTHOR AUTHOR'S ORGANIZ ATION 04/30/2024 [facility] DATE CREATED AUTHOR AUTHOR'S ORGANIZ ATION 05/04/2024 [facility] REASON FOR VISIT (unrecogniz ed section and [...] September 03, 2023 End: September 03, 2023 Artistic Associate Relationship Specialty Start Date End Date Unallocated, Sh[place] [address] [place] [address] PCP - General 12/28/22 Artistic Associate Relationship Specialty Start Date End Date Unallocated, [place] [address] PCP - General 12/28/22 Goals (unrecognized section [...] BE BASED ON THE PRIMARY CLINICAL RECORDS. [facility] [employer] [facility]. provides no warranty or guarantee of the accuracy or completeness of information in this document.
--- NOTE | 2024-05-30 17:04 | ED.GENADUL1 ---
HPI HPI - General Adult General Chief complaint: Back Pain/Injury Stated complaint: Kidney Pain Time Seen by Provider: 05/30/24 16:44 Source: patient Mode of arrival: walk-in History of Present Illness HPI narrative: The patient have a history of kidney stone with a recent history of removing the stent in the right side is coming to us with bilateral flank pain that has been going on at least since Sunday which is 4 days ago, the patient denies any fever she does have some nausea The patient denies any other concerns Related Data Home Medications ?Medication ?Instructions ?Recorded ?Confirmed albuterol sulfate 90 mcg/actuation 1 puff inhalation Q6H PRN 09/15/23 05/30/24 aerosol inhaler shortness of breath or wheezing amlodipine 10 mg tablet 10 mg PO DAILY 09/15/23 05/30/24 ezetimibe 10 mg tablet 10 mg PO QPM 09/15/23 05/30/24 sertraline 100 mg tablet 100 mg PO DAILY 09/15/23 05/30/24 ADK supplement PO 03/11/24 Lactobacillus acidophilus and 1 cap PO DAILY 03/11/24 05/30/24 rhamnosus 15 billion cell capsule (Probiotic) Raw Dessicated Thyroid Glandular 03/11/24 65mg PO olive leaf extract 250 mg capsule 250 mg PO DAILY 03/11/24 05/30/24 vitamin E 200 unit capsule 402 mg PO QDAY 03/11/24 04/23/24 vitamin K2 45 mcg capsule 45 mcg PO DAILY 03/11/24 04/23/24 vitamins B1 2.5 mg-B2 2.5 1 tab PO DAILY 03/11/24 04/23/24 mg-niacin 5 mg-B12 100 mcg-protease tablet (B-Complex With B-12) Allergies Allergy/AdvReac Type Severity Reaction Status Date / Time amoxicillin Allergy Severe Rash Verified 03/11/24 11:15 cephalexin (From Keflex) Allergy Severe Rash Verified 03/11/24 11:15 ibuprofen Allergy Severe Rash Verified 03/11/24 11:15 Penicillins Allergy Severe Rash Verified 03/11/24 11:15 tamsulosin (From Flomax) Allergy Mild shortness Verified 04/16/24 14:46 of breath diazepam (From Valium) Allergy Unknown Rash Verified 03/11/24 11:15 levothyroxine AdvReac Intermediate abdominal Verified 04/23/24 12:53 pain Iodinated Contrast Media AdvReac Anaphylaxis Verified 03/11/24 11:15 Opioid HPI Opioid Management Most Recent Opioid Data: Last Pain Scale 7 05/30/24 17:12 05/30/24 Last MAR Pain Assessment 05/30/24 17:12 Review of Systems ROS Status of ROS 10 or more systems reviewed and unremarkable except as noted in history and below PFSH [facility] Medical History (Updated 05/30/24 @ 18:24 by Janine Lu MD) Kidney stones ?N20.0 - Calculus of kidney (ICD-10) Hematuria ?R31.9 - Hematuria, unspecified (ICD-10) Back pain ?M54.9 - Dorsalgia, unspecified (ICD-10) Hemochromatosis ?E83.119 - Hemochromatosis, unspecified (ICD-10) Anemia ?D64.9 - Anemia, unspecified (ICD-10) Depression ?F32.A - Depression, unspecified (ICD-10) COVID-19 ?U07.1 - COVID-19 (ICD-10) Asthma ?J45.909 - Unspecified asthma, uncomplicated (ICD-10) Seasonal allergies ?J30.2 - Other seasonal allergic rhinitis (ICD-10) High cholesterol ?E78.00 - Pure hypercholesterolemia, unspecified (ICD-10) Hypertension ?I10 - Essential (primary) hypertension (ICD-10) Dyspnea on exertion ?R06.09 - Other forms of dyspnea (ICD-10) Hypothyroidism ?E03.9 - Hypothyroidism, unspecified (ICD-10) S/P extracorporeal shock wave therapy ?Z98.890 - Other specified postprocedural states (ICD-10) Arm fracture ?S42.309A - Unspecified fracture of shaft of humerus, unspecified arm, initial encounter for closed fracture (ICD-10) Surgical History (Updated 04/16/24 @ 14:31 by Sandra Roth RN) History of cystoscopy ?Z98.890 - Other specified postprocedural states (ICD-10) History of cholecystectomy ?Z90.49 - Acquired absence of other specified parts of digestive tract (ICD-10) History of appendectomy ?Z90.49 - Acquired absence of other specified parts of digestive tract (ICD-10) H/O unilateral oophorectomy ?Z90.721 - Acquired absence of ovaries, unilateral (ICD-10) History of tubal ligation ?Z98.51 - Tubal ligation status (ICD-10) History of hernia repair ?Z98.890 - Other specified postprocedural states (ICD-10) ?Z87.19 - Personal history of other diseases of the digestive system (ICD-10) Family History (Updated 03/11/24 @ 11:35 by Maggie Ch NP) Other Family history of breast cancer Family history of myocardial infarction MVA (motor vehicle accident) Social History (Updated 03/11/24 @ 11:27 by Maggie Ch NP) Within the past year, how often did you have a drink containing alcohol: monthly or less Smoking status: Never smoker Non-prescribed substance use: cannabis (any form) 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 General: Well-appearing and in no apparent distress. Skin: Warm, dry, no pallor noted. No rash. Head: Normocephalic, atraumatic. Neck: Supple, non-tender. Eye: Pupils are equal, round and EOMI. No scleral icterus. Ears, Nose, Mouth, and Throat: TM are clear, no nasal mucosal hypertrophy. Oral mucosa is moist, no posterior oropharynx erythema, uvula is mid-line Cardiovascular: Regular Rate and Rhythm without murmur, gallop or rub. Respiratory: No accessory muscle use or respiratory distress. Lungs are clear to auscultation, no wheezing, rales or rhonchi Chest Wall: no tenderness Back: No midline thoracic or lumbar vertebral tenderness. Bilateral CVA tenderness Musculoskeletal: normal ROM, no calf or popliteal tenderness, no lower extremity edema/swelling GI: Abdomen is soft, non-distended. Normal bowel sounds. No masses appreciated. No tenderness to palpation. No rebound, guarding, or rigidity noted. Neurological: A&O x4. No cranial nerve dysfunction observed. No truncal ataxia. Moves all extremities. Sensation intact. Psychiatric: Cooperative and interactive. Normal mood and affect. Constitutional Vital Signs, click to edit/add: Last Vital Signs Temp 98.2 F 05/30/24 16:43 Pulse 84 05/30/24 18:26 Resp 18 05/30/24 18:26 BP 163/66 H 05/30/24 18:26 Pulse Ox 100 05/30/24 18:26 O2 Del Method Room Air 05/30/24 16:43 Course Vital Signs Vital signs: Vital Signs Temperature 98.2 F 05/30/24 16:43 Pulse Rate 74 05/30/24 16:43 Respiratory Rate 18 05/30/24 16:43 Blood Pressure 194/92 H 05/30/24 16:43 Pulse Oximetry 99 05/30/24 16:43 Oxygen Delivery Method Room Air 05/30/24 16:43 Temperature 98.2 F 05/30/24 16:43 Pulse Rate 84 05/30/24 18:26 Respiratory Rate 18 05/30/24 18:26 Blood Pressure 163/66 H 05/30/24 18:26 Pulse Oximetry 100 05/30/24 18:26 Oxygen Delivery Method Room Air 05/30/24 16:43 Medical Decision Making MDM Narrative Medical decision making narrative: CBC shows a white blood cell of 12 the patient chemistry shows some acute kidney injury with a creatinine of 1.3 The patient urinalysis showed no UTI Awaiting the results of the CAT scan the patient was provided with morphine for pain The patient care was transferred at the end of shift awaiting the results of the CAT scan Lab Data Labs: Lab Results 05/30/24 05/30/24 Range/Units 14:50 16:50 WBC 12.2 H (4.0-11.0) 10^3/uL RBC 4.40 (4.20-5.40) 10^6/uL Hgb 13.6 (12.0-16.0) g/dL Hct 40.3 (36.0-48.0) % MCV 91.6 (81.0-99.0) fL MCH 30.9 (26.7-34.0) pg MCHC 33.7 (29.9-35.2) g/dL RDW 13.1 (11.0-15.0) % Plt Count 338 (150-450) 10^3/uL MPV 8.8 L (9.5-13.5) fL Neut % (Auto) 61.7 (43.0-75.0) % Lymph % (Auto) 28.9 (20.5-60.0) % [place] % (Auto) 6.5 (1.7-12.0) % Eos % (Auto) 2.2 (0.9-7.0) % Baso % (Auto) 0.2 (0.2-2.0) % Neut # (Auto) 7.5 H (1.4-6.5) 10^3/uL Lymph # (Auto) 3.5 (1.2-3.8) 10^3/uL [place] # (Auto) 0.8 (0.3-0.8) 10^3/uL Eos # (Auto) 0.3 (0.0-0.7) 10^3/uL Baso # (Auto) 0.0 (0.0-0.1) 10^3/uL Abs Immat Gran (auto) 0.06 H (0.00-0.03) 10^3/uL Imm/Tot Granulo (auto) 0.5 (0.0-0.5) % PT 10.0 (9.0-11.6) sec INR 0.94 Sodium 138 (136-145) mmol/L Potassium 3.7 (3.5-5.1) mmol/L Chloride 103 (98-107) mmol/L Carbon Dioxide 25.9 (21.0-32.0) mmol/L Anion Gap 12.8 BUN 18.0 (7.0-18.0) mg/dL Creatinine 1.36 H (0.55-1.02) mg/dL Est GFR ( Amer) 47 L (>=60 mL/min/1.73m^2) Est GFR (Non-Af Amer) 39 L (>=60 mL/min/1.73m^2) BUN/Creatinine Ratio 13.2 Glucose 100 (74-106) mg/dL Lactate 0.9 (0.4-2.0) mmol/L Calcium 8.9 (8.5-10.1) mg/dL Total Bilirubin 0.5 (0.2-1.0) mg/dL AST 12 L (15-37) U/L ALT 18 (14-59) U/L Alkaline Phosphatase 78 (46-116) U/L Total Protein 7.6 (6.4-8.2) g/dL Albumin 3.8 (3.4-5.0) g/dL Globulin 3.8 g/dL Albumin/Globulin Ratio 1.0 Urine Color Lt. yellow (YELLOW) Urine Clarity Clear (CLEAR) Urine pH 6.5 (5.0-9.0) Ur Specific [place] 1.010 (1.005-1.025) Urine Protein Negative (NEG/TRACE) mg/dL Urine Glucose (UA) Negative (NEGATIVE) mg/dL Urine Ketones Negative (NEGATIVE) mg/dL Urine Occult Blood Trace-l (NEGATIVE) Urine Nitrite Negative (NEGATIVE) Urine Bilirubin Negative (NEGATIVE) Urine Urobilinogen 0.2 (0.2-1.0) EU/dL Ur Leukocyte Esterase Trace A (NEGATIVE) Urine RBC None seen (0-2) #/HPF Urine WBC 2-5 A (NONE SEEN) #/HPF Ur Squamous Epith Cells Rare (NONE/RARE) #/LPF Urine Crystals None seen (None Seen) #/HPF Urine Bacteria Trace A (NONE SEEN) #/HPF Urine Casts None seen (NONE SEEN) #/LPF Urine Mucus None seen (NONE SEEN) Ur Culture Indicated? No Discharge Plan Discharge Chief Complaint: Back Pain/Injury Clinical Impression: Kidney calculi, AILEEN (acute kidney injury) Patient Disposition: Home, Self-Care Condition: Good Prescriptions / Home Meds: No Action albuterol sulfate 90 mcg/actuation HFA aerosol inhaler 1 puff INHALATION Q6H PRN (Reason: shortness of breath or wheezing) amlodipine 10 mg tablet 10 mg PO DAILY ezetimibe 10 mg tablet 10 mg PO QPM sertraline 100 mg tablet 100 mg PO DAILY vitamin E 200 unit capsule 402 mg PO QDAY olive leaf extract 250 mg capsule 250 mg PO DAILY B-Complex With B-12 2.5 mg-2.5 mg- 5 mg-100 mcg tablet 1 tab PO DAILY vitamin K2 45 mcg capsule 45 mcg PO DAILY ADK supplement PO Raw Dessicated Thyroid Glandular 65mg PO Probiotic 15 billion cell capsule 1 cap PO DAILY Print Language: Yakut Referrals: Lala Castillo NP [Primary Care Provider] - 1 week
[2024-05-30] MEDS: ONDANSETRON PF 4 MG/2 ML VIAL IV (17:11)
[2024-05-30] MEDS: MORPHINE SULFATE 2 MG/ML SYRINGE IV (17:12)
[2024-05-30 17:14] LABS: Basophils Percent Auto 0.2 % (0.2-2.0); Eosinophils Absolute Auto 0.3 10^3/uL (0.0-0.7); Eosinophils Percent Auto 2.2 % (0.9-7.0); Hematocrit 40.3 % (36.0-48.0); Hemoglobin 13.6 g/dL (12.0-16.0); Immature Granulocytes Abs Auto 0.06 10^3/uL (0.00-0.03); Immature Granulocytes Pct Auto 0.5 % (0.0-0.5); Lymphocytes Absolute Auto 3.5 10^3/uL (1.2-3.8); Lymphocytes Percent Auto 28.9 % (20.5-60.0); Mean Corpuscular HGB Conc 33.7 g/dL (29.9-35.2); Mean Corpuscular Hemoglobin 30.9 pg (26.7-34.0); Mean Corpuscular Volume 91.6 fL (81.0-99.0); Mean Platelet Volume 8.8 fL (9.5-13.5); Monocytes Absolute Auto 0.8 10^3/uL (0.3-0.8); Monocytes Percent Auto 6.5 % (1.7-12.0); Neutrophils Absolute Auto 7.5 10^3/uL (1.4-6.5); Neutrophils Percent Auto 61.7 % (43.0-75.0); Platelet Count 338 10^3/uL (150-450); Red Cell Distribution Width 13.1 % (11.0-15.0); White Blood Count 12.2 10^3/uL (4.0-11.0)
--- NOTE | 2024-05-30 17:22 | CT_ITS ---
The [address] [address] Patient Name: DEV BACON MRN: [id number] date: 1955 Sex: F Assigned Patient Location: ER Current Patient Location: .MAIN Accession/Order Number: [id number] Exam Date: 05/30/2024 17:17 Report Date: 05/30/2024 19:22 At the request of: ARLYN MENENDEZ Procedure: CT abdomen pelvis wo con CT ABDOMEN PELVIS WITHOUT CONTRAST HISTORY: History of kidney stones. Bilateral flank pain. COMPARISON: CT abdomen and pelvis without 01/26/2024 TECHNIQUE: Thin section axial CT images were obtained from the lung bases to the pubis symphysis. This CT exam was performed using one or more of the following dose reduction techniques: Automated exposure control, adjustment of the mA and/or kV according to patient size, or use of iterative reconstruction technique. Thin section coronal and sagittal images were reconstructed from the axial data set. All images were reviewed and interpreted. CONTRAST: None. FINDINGS: Assessment of solid organs is limited without the benefit of IV contrast. LUNG BASES: The lung bases are clear. GE JUNCTION AND STOMACH: Negative. No hiatal hernia. LIVER: Negative. GALLBLADDER AND BILIARY TREE: Cholecystectomy. No biliary duct dilation. SPLEEN: Upper limits normal in size. No splenic mass or cyst. PANCREAS: Negative. ADRENALS: Negative. RIGHT KIDNEY AND URETER: There is a at least moderate right hydronephrosis with distention throughout the right intrarenal collecting system and right renal pelvis with abrupt transition at right ureteropelvic junction. There is urothelial wall thickening throughout the right intrarenal collecting system, particularly right renal pelvis and right UPJ which could be due to acute pyelitis/pyelonephritis causing obstruction. No obstructing urinary tract calculus is seen.] Underlying mass. Correlate with urinalysis. Follow-up required. There are at least 2 nonobstructing calculi in lower pole calyces right kidney, larger 9 mm x 4 mm smaller measuring approximately 2 x 2 millimeter. There is a larger calculus which was seen previously within lateral midpole right kidney measuring approximately 7 mm unchanged. No right perinephric edema or stranding at this time suggesting this may be subacute more chronic obstruction of right intrarenal collecting system. There is a new exophytic hypodensity within the upper pole right kidney extending almost 1.6 cm x 1.6 cm not clearly seen on 01/26/2024, therefore concerning. Requires additional evaluation. LEFT KIDNEY AND URETER: Negative. No urinary tract calculi or hydronephrosis. No renal masses or cysts are evident. SMALL BOWEL: Negative without evidence of obstruction or enteritis. LARGE BOWEL: Mild scattered diverticulosis. No diverticulitis. Otherwise negative. No acute colitis or distention. APPENDIX: Postop changes at cecum consistent with prior appendectomy. Correlate with history. Suture line at cecal tip. AORTA: The abdominal aorta is normal size. IVC: Negative. LYMPH NODES: There is no lymphadenopathy. BLADDER: Normal bladder. BONES: Unremarkable. COMMENTS: No ascites or free air. CT/CT abdomen pelvis wo con IMPRESSION: 1. Concern for acute pyelitis/pyelonephritis of right kidney and right renal pelvis and proximal right ureter causing obstruction and moderate subacute to right hydronephrosis. There is additional new hypodense lesion measuring 1.6 cm upper pole cortex right kidney, not seen back in January 2024; therefore, recommend correlation with urinalysis and follow-up with CT UROGRAPHY when stable to assess renal lesion as well as exclude mass within the right UPJ from pyelitis/pyelonephritis. 2. Additional nonobstructing right renal nephrolithiasis. 3. Cholecystectomy. 4. Additional chronic incidental findings. Electronically authenticated by: ASIYA RUEDA Date: 05/30/2024 19:22
[2024-05-30 17:24] LABS: Bilirubin Urine NEGATIVE (NEGATIVE); Blood Urine TRACE-L (NEGATIVE); Clarity Urine CLEAR (CLEAR); Color Urine LT. YELLOW (YELLOW); Glucose Urine UA NEGATIVE (NEGATIVE); Ketones Urine NEGATIVE (NEGATIVE); Leukocyte Esterase Urine TRACE (NEGATIVE); Nitrite Urine NEGATIVE (NEGATIVE); Protein Urine NEGATIVE (NEG/TRACE); Urobilinogen Urine 0.2 EU/dL (0.2-1.0); pH Urine 6.5 (5.0-9.0)
[2024-05-30 17:28] LABS: Urine Microscopic Indicated YES
[2024-05-30 17:29] LABS: INR 0.94
[2024-05-30 17:33] LABS: Alanine Aminotransferase 18 U/L (14-59); Albumin Level 3.8 g/dL (3.4-5.0); Alkaline Phosphatase 78 U/L (46-116); Anion Gap 12.8; Aspartate Amino Transferase 12 U/L (15-37); BUN Creatinine Ratio 13.2; Bilirubin Total 0.5 mg/dL (0.2-1.0); Calcium 8.9 mg/dL (8.5-10.1); Carbon Dioxide 25.9 mmol/L (21.0-32.0); Chloride 103 mmol/L (98-107); Estimated GFR (African America 47 (>=60 mL/min/1.73m^2); Estimated GFR (Non-African Ame 39 (>=60 mL/min/1.73m^2); Globulin 3.8 g/dL; Glucose 100 mg/dL (74-106); Potassium 3.7 mmol/L (3.5-5.1); Sodium 138 mmol/L (136-145); Total Protein 7.6 g/dL (6.4-8.2)
[2024-05-30 17:35] LABS: Lactate/Lactic Acid 0.9 mmol/L (0.4-2.0)
[2024-05-30 17:44] LABS: Bacteria Urine TRACE #/HPF (NONE SEEN); Cast Seen? NONE SEEN #/LPF (NONE SEEN); Crystals Seen? None Seen #/HPF (None Seen); Mucus Urine NONE SEEN (NONE SEEN); RBC Urine NONE SEEN #/HPF (0-2); Squamous Epithelial Cell Urine RARE #/LPF (NONE/RARE); Urine Culture Indicated NO
[2024-05-30 18:26] VITALS: BP 163/66; PULSE 84; O2SAT 100
[2024-05-30 19:50] VITALS: BP 160/88; PULSE 78; O2SAT 97
== END 2024-05-30 19:51 | disposition home or self-care (01) ==
PROVIDERS: Emergency Provider Emergency Medicine; PCP Nurse Practitioner Family
DX: N10 Acute pyelonephritis (principal); N20.0 Calculus of kidney; Z87.442 Personal history of urinary calculi; N17.9 Acute kidney failure, unspecified; Z90.49 Acquired absence of other specified parts of digestive tract; Z98.51 Tubal ligation status
CPT/HCPCS: 36415; 74176; 80053; 81001; 83605; 85025; 85610; 96374; 96375; 99285; J2270; J2405

== ENCOUNTER 2025-01-15 14:14 | Outpatient (OUT) | payer MEDICARE, SELFPAY ==
--- OUTSIDE RECORDS SUMMARY | 2024-12-30 09:00 | XMS_ITS ---
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 Social History Sex Assigned At : Social History Observation Description Sex Assigned At Female Encounters Encounter Location Date Provider Diagnosis Main [address] [place] [id number] 12/30/2024 Sirena Junior Plan Of Treatment Next Appt Details Provider Name:Lala cali, 01/22/2025 08:15:00 AM, [address] [place], [id number], Progress Notes * Jim BACON FDOB: (69 yo F)Acc No.[id number]:12/30/2024 Medical Note Patient: Jim BAIN Provider: April Junior MD :1955 A ge:69 Y S ex:Female Date:12/30/2024 Address:[address] [place], [id number] Pcp:Lala Castillo Subjective: * Chief Complaints: * 1 . .. * Medical History: Objective: * Vitals: Assessment: Plan: * Treatment: * Billing Information: * Visit Code: * Procedure Codes: * Electronic signature of Joaquín Junior MD on 01/15/2025 at 02:17 PM EDT Sign off status: Pending * Provider: April Junior MD Date: 0 12/30/2024 Generated for Corinne sibley/Bubba/Karime on: 0 01/15/2025 02:17 PM EDT
--- OUTSIDE RECORDS SUMMARY | 2025-01-15 14:17 | XMS_ITS | Patient Health Record ---
Author Organization [facility] vices Address [address], [place] [id number] Care Team Providers Care Senior Corporate Accountant Name Role Phone Lala Castillo Primary Care Provider Erik Hills Unavailable [phone] Alexandra Brewer Unavailable [phone] Vernon Sirena Unavailable [phone] Allergies Allergen (clinical drug ingredient) Drug/Non Drug Allergy documented on EMR Reaction Allergy Type Onset Date Status codeine Codeine Sulfate Comments: UNSURE OF RXN Drug Allergy Active tamsulosin Flomax Unknown Drug Allergy Active ibuprofen Ibuprofen Hives , Rash Drug Allergy Acti ve Keflex hives Drug Allergy Active diazepam Valium Hives Drug Allergy Active Iodinated contrast media (substance) Iodinated Diagnostic Agents (contrast dye)Anaphylaxi s Drug Allergy Active levothyroxine Levothyroxine rash Drug Allergy Active Substance with penicillin structure and antibacterial mechanism of action (substance) Penicillins Asthma Drug Allergy Active Substance with sulfonamide structure and antibacterial mechanism of action (substance) Sulfa Antibiotics Unknown Drug Allergy Active Results Component Value Reference Range Notes XR abdomen 1V Reviewed date:03/20/2024 10:52:26 AM Interpretation: Performing Lab: Notes/Report: Source Facility: [place] [address] [place] [address] XRay Report Signed Patient: DEV PHIPPS MR#: [id number] : 1955 Acct:[id number] Age/Sex: 68 / F ADM Date: 03/19/24 Loc: SURGOUT Attending Dr: Tayla Carson M.D. Ordering Physician: Tayla Carson M.D. Date of Service: 03/19/24 Procedure(s): XR abdomen 1V Accession Number(s): [id number] cc: Tayla Carson M.D.; Lala Castillo ABSORPTION AND ADSORPTION ENGINEER [place] [address] Patient Name: DEV PHIPPS MRN: [facility]:[id number] date: 1955 Sex: F Assigned Patient Location: [facility] [[email or web address] Current Patient Location: Accession/Order Number: [id number] Exam Date: 03/19/2024 11:16 Report Date: 03/20/2024 10:37 At the request of: TAYLA CARSON Procedure: XR abdomen 1V EXAMINATION: XR abdomen 1V HISTORY: kidney stones COMPARISON: 02/15/2024 FINDINGS: KIDNEY/URETER - RIGHT: 1.8 cm calcification projects over the right renal pelvis. Additional 7 mm calcification upper pole, both stable KIDNEY/URETER - LEFT: No visible renal or ureteral calcifications. PELVIS: No visible ureteral calcifications. Any visible calcifications favor phleboliths. BOWEL: No abnormal dilation or deviation. BONES: No acute abnormality. Moderate degenerative changes with rotatory levocurvature OTHER: Negative. No abnormal gaseous collections. XR/XR abdomen 1V IMPRESSION: Stable right nephrolithiasis Electronically authenticated by: REHAN MEDLEY Date: 03/20/2024 10:37 Dictated By: Rehan Medley M.D. Signed By: 03/20/24 1040 DD/ 1037 TD/TT: Funeral Planner: APOORVA Fecal Occult Blood Test (FOBT) Reviewed date:03/21/2024 10:39:59 AM Interpretation:Negative Performing Lab: Notes/Report: Negative CT abdomen pelvis wo con Reviewed date:06/02/2024 07:10:27 AM Interpretation: Performing Lab: Notes/Report: Source Facility: [place] [address] [place] [address] CT Scan Report Signed Patient: DEV PHIPPS MR#: [id number] : 1955 Acct:[id number] Age/Sex: 69 / F ADM Date: 05/30/24 Loc: ER Attending Dr: Ordering Physician: Janine Menendez Date of Service: 05/30/24 Procedure(s): CT abdomen pelvis wo con Accession Number(s): [id number] cc: Lala Castillo NP [place] [id number] Patient Name: DEV PHIPPS MRN: [id number] date: 1955 Sex: F Assigned Patient Location: ER Current Patient Location: ED.MAIN Accession/Order Number: [id number] Exam Date: 05/30/2024 17:17 Report Date: 05/30/2024 19:22 At the request of: JANINE MENENDEZ Procedure: CT abdomen pelvis wo con CT ABDOMEN PELVIS WITHOUT CONTRAST HISTORY: History of kidney stones. Bilateral flank pain. COMPARISON: CT abdomen and pelvis without 01/26/2024 TECHNIQUE: Thin section axial CT images were obtained from the lung bases to the pubis symphysis. This CT exam was performed using one or more of the following dose reduction techniques: Automated exposure control, adjustment of the mA and/or kV according to patient size, or use of iterative reconstruction technique. Thin section coronal and sagittal images were reconstructed from the axial data set. All images were reviewed and interpreted. CONTRAST: None. FINDINGS: Assessment of solid organs is limited without the benefit of IV contrast. LUNG BASES: The lung bases are clear. GE JUNCTION AND STOMACH: Negative. No hiatal hernia. LIVER: Negative. GALLBLADDER AND BILIARY TREE: Cholecystectomy. No biliary duct dilation. SPLEEN: Upper limits normal in size. No splenic mass or cyst. PANCREAS: Negative. ADRENALS: Negative. RIGHT KIDNEY AND URETER: There is a at least moderate right hydronephrosis with distention throughout the right intrarenal collecting system and right renal pelvis with abrupt transition at right ureteropelvic junction. There is urothelial wall thickening throughout the right intrarenal collecting system, particularly right renal pelvis and right UPJ which could be due to acute pyelitis/pyelonephritis causing obstruction. No obstructing urinary tract calculus is seen.] Underlying mass. Correlate with urinalysis. Follow-up required. There are at least 2 nonobstructing calculi in lower pole calyces right kidney, larger 9 mm x 4 mm smaller measuring approximately 2 x 2 millimeter. There is a larger calculus which was seen previously within lateral midpole right kidney measuring approximately 7 mm unchanged. No right perinephric edema or stranding at this time suggesting this may be subacute more chronic obstruction of right intrarenal collecting system. There is a new exophytic hypodensity within the upper pole right kidney extending almost 1.6 cm x 1.6 cm not clearly seen on 01/26/2024, therefore concerning. Requires additional evaluation. LEFT KIDNEY AND URETER: Negative. No urinary tract calculi or hydronephrosis. No renal masses or cysts are evident. SMALL BOWEL: Negative without evidence of obstruction or enteritis. LARGE BOWEL: Mild scattered diverticulosis. No diverticulitis. Otherwise negative. No acute colitis or distention. APPENDIX: Postop changes at cecum consistent with prior appendectomy. Correlate with history. Suture line at cecal tip. AORTA: The abdominal aorta is normal size. IVC: Negative. LYMPH NODES: There is no lymphadenopathy. BLADDER: Normal bladder. BONES: Unremarkable. COMMENTS: No ascites or free air. CT/CT abdomen pelvis wo con IMPRESSION: 1. Concern for acute pyelitis/pyelonephritis of right kidney and right renal pelvis and proximal right ureter causing obstruction and moderate subacute to right hydronephrosis. There is additional new hypodense lesion measuring 1.6 cm upper pole cortex right kidney, not seen back in January 2024; therefore, recommend correlation with urinalysis and follow-up with CT UROGRAPHY when stable to assess renal lesion as well as exclude mass within the right UPJ from pyelitis/pyelonephritis. 2. Additional nonobstructing right renal nephrolithiasis. 3. Cholecystectomy. 4. Additional chronic incidental findings. Electronically authenticated by: ASIYA RUEDA Date: 05/30/2024 19:22 Dictated By: Asiya Rueda D.O. Signed By: 05/30/241924 DD/ 21 TD/TT: Funeral Planner: Urine Microscopic Reviewed date:06/02/2024 07:10:22 AM Interpretation: Performing Lab: Notes/Report: [facility] , WBC Urine 2-5 NONE SEEN #/HPF RBC Urine NONE SEEN 0-2 #/HPF Bacteria Urine TRACE NONE SEEN #/HPF Mucus Urine NONE SEEN NONE SEEN Squamous Epithelial Cell Urine RARE NONE/RARE #/LPF Crystals Seen? None Seen None Seen #/HPF Cast Seen? NONE SEEN NONE SEEN #/LPF Urine Culture Indicated NO Performing Lab: see note [facility] UA Culture/Micro if Indicate d Reviewed date:06/02/2024 07:09:56 AM Interpretation: Performing Lab: Notes/Report: [facility] , Color Urine LT. YELLOW YELLOW Clarity Urine CLEAR CLEAR Specific Linn Urine 1.010 1.005-1.025 pH Urine 6.5 5.0-9.0 Protein Urine NEGATIVE NEG/TRACE mg/dL Glucose Urine UA NEGATIVE NEGATIVE mg/dL Bilirubin Urine NEGATIVE NEGATIVE Ketones Urine NEGATIVE NEGATIVE mg/dL Blood Urine TRACE-L NEGATIVE Nitrite Urine NEGATIVE NEGATIVE Urobilinogen Urine 0.2 0.2-1.0 EU/dL Leukocyte Esterase Urine TRACE NEGATIVE Urine Microscopic Indicated YES Performing Lab: see note [facility] Prothrombin Time INR Reviewed date:06/02/2024 07:10:01 AM Interpretation: Performing Lab: Notes/Report: [facility] , Prothrombin Time 10.0 9.0-11.6 sec INR 0.94 DESIRED INR: 2.0-3.0 CONDITIONS NOT LISTED BELOW 2.5-3.5 FOR PROSTHETIC HEART VALVE REPLACEMENT 2.5-3.5 RECURRENT THROMBOSIS Performing Lab: see note [facility] Lactate/Lactic Acid Reviewed date:06/02/2024 07:10:11 AM Interpretation: Performing Lab: Notes/Report: [facility] , Lactate/Lactic Acid 0.9 0.4-2.0 mmol/L Performing Lab: see note [facility] Comprehensive Metabolic Pane l Reviewed date:06/02/2024 07:10:06 AM Interpretation: Performing Lab: Notes/Report: [facility] , Sodium 138 136-145 mmol/L Potassium 3.7 3.5-5.1 mmol/L Chloride 103 98-107 mmol/L Carbon Dioxide 25.9 21.0-32.0 mmol/L Anion Gap 12.8 Glucose 100 74-106 mg/dL Blood Urea Nitrogen 18.0 7.0-18.0 mg/dL Creatinine 1.36 0.55-1.02 mg/dL Estimated GFR ( Michelle 47 >=60 mL/min/1.73m 2 Estimated GFR (Non- Day 39 >=60 mL/min/1.73m 2 BUN Creatinine Ratio 13.2 Calcium 8.9 8.5-10.1 mg/dL Bilirubin Total 0.5 0.2-1.0 mg/dL Aspartate Amino Transferase 12 15-37 U/L Alanine Aminotransferase 18 14-59 U/L Alkaline Phosphatase 78 46-116 U/L Total Protein 7.6 6.4-8.2 g/dL Albumin Level 3.8 3.4-5.0 g/dL Globulin 3.8 Albumin Globulin Ratio 1.0 Performing Lab: see note ML - [facility] LB Complete Blood Count Auto Di ff Reviewed date:06/02/2024 07:10:17 AM Interpretation: Performing Lab: Notes/Report: [facility] , White Blood Count 12.2 4.0-11.0 10 3/uL Red Blood Count 4.40 4.20-5.40 10 6/uL Hemoglobin 13.6 12.0-16.0 g/dL Hematocrit 40.3 36.0-48.0 % Mean Corpuscular Volume 91.6 81.0-99.0 fL Mean Corpuscular Hemoglobin 30.9 26.7-34.0 pg Mean Corpuscular HGB Conc 33.7 29.9-35.2 g/dL Red Cell Distribution Width 13.1 11.0-15.0 % Platelet Count 338 150-450 10 3/uL Mean Platelet Volume 8.8 9.5-13.5 fL Neutrophils Percent Auto 61.7 43.0-75.0 % Lymphocytes Percent Auto 28.9 20.5-60.0 % Monocytes Percent Auto 6.5 1.7-12.0 % Eosinophils Percent Auto 2.2 0.9-7.0 % Basophils Percent Auto 0.2 0.2-2.0 % Immature Granulocytes Pct Auto 0.5 0.0-0.5 % Neutrophils Absolute Auto 7.5 1.4-6.5 10 3/uL Lymphocytes Absolute Auto 3.5 1.2-3.8 10 3/uL Monocytes Absolute Auto 0.8 0.3-0.8 10 3/uL Eosinophils Absolute Auto 0.3 0.0-0.7 10 3/uL Basophils Absolute Auto 0.0 0.0-0.1 10 3/uL Immature Granulocytes Abs Auto 0.06 0.00-0.03 10 3/uL Performing Lab: see note ML - [facility] LB XR urethrogram retrograde Reviewed date:04/24/2024 07:47:57 AM Interpretation: Performing Lab: Notes/Report: Source Facility: [facility]-[address] [place] [address] XRay Report Signed Patient: DEV PHIPPS MR#: [id number] : 1955 Acct:[id number] Age/Sex: 68 / F ADM Date: 04/23/24 Loc: SURGOUT Attending Dr: Tayla Carson M.D. Ordering Physician: Tayla Carson M.D. Date of Service: 04/23/24 Procedure(s): XR urethrogram retrograde Accession Number(s): [id number] cc: Tayla Carson M.D.; Lala Castillo [place] [address] Patient Name: DEV PHIPPS MRN: [id number] date: 1955 Sex: F Assigned Patient Location: [facility] [[email or web address]] Current Patient Location: [facility] [[email or web address]] Accession/Order Number: [id number] Exam Date: 04/23/2024 14:10 Report Date: 04/23/2024 15:53 At the request of: TAYLA CARSON Procedure: XR urethrogram retrograde EXAM: XR urethrogram retrograde HISTORY: Right kidney stone COMPARISON: None. TECHNIQUE: 14.14 mgy. Single image FINDINGS: Single image demonstrates placement of a right double-J ureteral stent in normal position. Contrast in the right renal collecting system demonstrates mild hydronephrosis. XR/XR urethrogram retrograde IMPRESSION: Right ureteral stent with hydronephrosis Electronically authenticated by: REHAN MEDLEY Date: 04/23/2024 15:53 Dictated By: Rehan Medley M.D. Signed By: 04/23/24 1556 DD/ 155 TD/TT: Funeral Planner: Stone Analysis Reviewed date:04/29/2024 10:54:13 AM Interpretation: Performing Lab: Notes/Report: [facility] , Source Comment . Right Kidney Color Green . Size 4x3 . mm Multiple pieces received. Dimensions of the largest piece reported. Weight 87 . mg Composition Comment . Percentage (Rep resents the % composition) Calcium Oxalate Monohydrate 20 . % Calcium Oxalate Dihydrate 70 . % Calcium phosphate (hydroxyl) 10 . % Calcium phosphate (carbonate) TNP . CaHPO4 (Brushite) TNP . Calcium Phosphate TNP . Calcium Carbonate TNP . [id number] (Struvite) TNP . MgHPO4 (Newberyite) TNP . Uric Acid TNP . Uric Acid Dihydrate TNP . Ammonium Acid Urate TNP . Sodium Acid Urate TNP . 2,8 Dihydroxyadenine TNP . Xanthine TNP . Cystine TNP . Cholesterol TNP . Calcium Bilirubinate TNP . Bilirubin TNP . Calcium Palmitate TNP . Calcium Stearate TNP . Triamterene TNP . Drug or Metabolite TNP . Dried Blood TNP . Cellular Material TNP . Other component(s) TNP . Comment Comment . Calcium phosphate (hydroxyl form) includes hydroxyapatite, amorphous calcium phosphate, and whitlockite. Hydroxyapatite is the most common of the calcium phosphate salts found in human kidney stones. Comment Comment . Calculus received wet. Wet calculi must be dried before analysis, which delays reporting of results. Leaving calculi wet (such as water, saline, blood, urine) may lead to changes in composition. Photo Comment . Photograph will follow under a separate cover Comment: Comment . Physician questions regarding Calculi Analysis contact [employer] at: [phone]. Please note: Comment . Calculi report will follow via computer, mail or advanced practice nurse delivery. Disclaimer: Comment . This test was developed and its performance characteristics determined by [facility]. It has not been cleared or approved by the Food and Drug Administration. Performed at: [address] [id number] Hatchery Man: Ha Lowe PhD, Phone: [phone] Performing Lab: [facility] - [facility] 1V Reviewed date:02/19/2024 08:19:06 AM Interpretation: Performing Lab: Notes/Report: Source Facility: [place] [address] [place] [address] XRay Report Signed Patient: DEV PHIPPS MR#: [id number] : 1955 Acct:[id number] Age/Sex: 68 / F ADM Date: 02/15/24 Loc: RAD Attending Dr: Tayla Carson M.D. Ordering Physician: Tayla Carson M.D. Date of Service: 02/15/24 Procedure(s): XR abdomen 1V Accession Number(s): [id number] cc: Tayla Carson M.D.; Lala Castillo NP [place] [address] Patient Name: DEV PHIPPS MRN: [id number] date: 1955 Sex: F Assigned Patient Location: [facility] Current Patient Location: Accession/Order Number: [id number] Exam Date: 02/15/2024 10:36 Report Date: 02/19/2024 06:46 At the request of: TAYLA CARSON Procedure: XR abdomen 1V EXAMINATION: XR abdomen 1V HISTORY: Kidney Stone N20.0 COMPARISON: No relevant comparison available. FINDINGS: KIDNEY/URETER - RIGHT: 18 mm stone within right renal pelvis. 7 mm stone within mid body. KIDNEY/URETER - LEFT: No visible renal or ureteral calcifications. PELVIS: No visible ureteral stones. Stable pelvic calcifications compatible with phleboliths. BOWEL: No abnormal dilation or deviation. BONES: No acute abnormality. OTHER: Negative. No abnormal gaseous collections. XR/XR abdomen 1V IMPRESSION: 1. Stable right nephrolithiasis. Electronically authenticated by: DWIGHT POLLARD Date: 02/19/2024 06:46 Dictated By: Dwight Pollard M.D. Signed By: 02/19/2448 DD/ 5 TD/TT: Funeral Planner: HEATHER Santiago Reviewed date:10/16/2024 08:35:50 AM Interpretation: Performing Lab: Notes/Report: T3 FREE Reviewed date:10/17/2024 09:57:06 AM Interpretation: Performing Lab: Notes/Report: T3, FREE 2.66 2.00-4.40 pg/mL UNLESS OTHERWISE INDICATED, ALL TESTING PERFORMED AT: [employer] [address] [place] [address] ELECTRICAL ASSEMBLY TECHNICIAN: ARABELLA GERMAIN M.D. CLIA NUMBER [id number] CAP ACCREDITATION AUID [id number] THYROID PROFILE III Reviewed date:10/17/2024 09:55:52 AM Interpretation: Performing Lab: Notes/Report: T4, TOTAL 7.2 4.5-12.0 ug/dL TSH 2.23 0.270-4.200 uIU/mL The [place] [employer] (MARCOS) recommends the following reference ranges for TSH levels during : First trimester: 0.1 to 2.5 mIU/L Second trimester: 0.2 to 3.0 mIU/L Third trimester: 0.3 to 3.0 mIU/L URINE CULTURE Reviewed date:11/07/2024 12:52:08 PM Interpretation: Performing Lab: Notes/Report: URINE CULTURE CULTURE/SENS,URINE REPORT STATUS: FINAL SOURCE: URINE CULTURE: 50,000 CFU/ML MIXED (THREE OR MORE) ORGANISMS; SPECIMEN APPEARS TO BE CONTAMINATED. SUGGEST REPEAT CULTURE. UNLESS OTHERWISE INDICATED, ALL TESTING PERFORMED AT: [facility] [address] [place] [address] ELECTRICAL ASSEMBLY TECHNICIAN: ARABELLA GERMAIN M.D. CLIA NUMBER [id number] CAP ACCREDITATION AUID [id number] Urine Dip Reviewed date:11/04/2024 08:49:23 AM Interpretation: Performing Lab: Notes/Report: Bilirubin - Occult Blood 3+ Glucose - Ketones - WBC 2+ Nitrite - Ph 6.0 Protein 2+ Specific Linn 1.020 Color dark yellow Appearance cloudy URINALYSIS - REFLEX CULTURE/ SENS Reviewed date:11/12/2024 09:38:56 AM Interpretation: Performing Lab: Notes/Report: PH 6.5 5.0-8.0 SP GRAVITY 1.018 1.005-1.030 APPEARANCE CLOUDY CLEAR COLOR Dark Yellow YELLOW PROTEIN 2+ NEGATIVE GLUCOSE NEGATIVE NEGATIVE KETONES NEGATIVE NEGATIVE BILIRUBIN NEGATIVE NEGATIVE OCCULT BLOOD 3+ NEGATIVE LEUKO STORMY 1+ NEGATIVE NITRITE NEGATIVE NEGATIVE UROBILINOGEN 0.2 <2 mg/dL XR abdomen 1V Reviewed date:04/07/2024 11:56:55 AM Interpretation: Performing Lab: Notes/Report: Source Facility: [place] [address] XRay Report Signed Patient: DEV PHIPPS MR#: [id number] : 1955 Acct:[id number] Age/Sex: 68 / F ADM Date: 04/03/24 Loc: RAD Attending Dr: Vasquez Cannon M.D. Ordering Physician: Vasquez Cannon M.D. Date of Service: 04/03/24 Procedure(s): XR abdomen 1V Accession Number(s): [id number] cc: Lala Castillo NP; Vasquez Cannon M.D. [place] [address] Patient Name: DEV PHIPPS MRN: [id number] date: 1955 Sex: F Assigned Patient Location: [facility] Current Patient Location: Accession/Order Number: [id number] Exam Date: 04/03/2024 09:30 Report Date: 04/07/2024 07:18 At the request of: VASQUEZ CANNON Procedure: XR abdomen 1V EXAMINATION: XR abdomen 1V HISTORY: Kidney stones N20.0 COMPARISON: No relevant comparison available. FINDINGS: KIDNEY/URETER - RIGHT: Interval changing configuration of a large nephrolith along the lower pole now fragmented measuring 1.7 cm tall. Additional upper pole nephrolith. Right ureteral stent normally positioned with suspected proximal ureterolithiasis KIDNEY/URETER - LEFT: No visible renal or ureteral calcifications. PELVIS: No visible ureteral calcifications. Any visible calcifications favor phleboliths. BOWEL: No abnormal dilation or deviation. BONES: No acute abnormality. Moderate degenerative changes with rotatory levocurvature OTHER: Negative. No abnormal gaseous collections. XR/XR abdomen 1V IMPRESSION: Interval lithotripsy with fragmentation appearance of a right lower pole nephrolith and proximal ureterolithiasis Electronically authenticated by: REHAN MEDLEY Date: 04/07/2024 07:18 Dictated By: Rehan Medley M.D. Signed By: 04/07/24 0720 DD/ 0718 TD/TT: Funeral Planner: THYROID PROFILE III Reviewed date:06/13/2024 08:05:45 AM Interpretation: Performing Lab: Notes/Report: T4, TOTAL 5.9 4.5-12.0 ug/dL TSH 10.3 0.270-4.200 uIU/mL The [place] [employer] (MARCOS) recommends the following reference ranges for TSH levels during : First trimester: 0.1 to 2.5 mIU/L Second trimester: 0.2 to 3.0 mIU/L Third trimester: 0.3 to 3.0 mIU/L UNLESS OTHERWISE INDICATED, ALL TESTING PERFORMED AT: [employer] [address] [place] [address] ELECTRICAL ASSEMBLY TECHNICIAN: ARABELLA GERMAIN M.D. CLIA NUMBER [id number] CAP ACCREDITATION AUID [id number] LIPID PANEL WITH REFLEX TO D IRECT LDL Reviewed date:06/13/2024 08:03:42 AM Interpretation: Performing Lab: Notes/Report: CHOLESTEROL 183 100-199 mg/dL TRIGLYCERIDES 242 20-149 mg/dL VLDL-CHOL, CALCULATED 48 <30 mg/dL HDL-CHOL 45 >=50 mg/dL LDL-CHOL, CALCULATED 90 <130 mg/dL ADULT LDL CHOLESTEROL CLASSIFICATION <100mg/dL Optima l 100-129 Near/A floresita Optimal 130-159mg/dL Border line High >160mg/dL High Risk Desirable range <100 mg/dL for patients with CHD or diabetes and <70 mg/dL for diabetic patients with known heart disease. Direct LDL is recommended for patients with triglycerides >400. LDL/HDL 2.0 <4.1 LDL/HDL RATIO MALE FEMALE below average risk <2.3 <2.3 average risk <5.0 <4.1 moderate risk <7.1 <5.6 high risk >7.1 >5.6 CHOL/HDL 4.1 2.0-4.5 POCT A1C Reviewed date:06/12/2024 08:33:51 AM Interpretation:6.0 Performing Lab: Notes/Report: HTRX - Urinary Tract Infecti on Reviewed date:10/29/2024 10:05:27 AM Interpretation: Performing Lab: Notes/Report: Urine Dip Reviewed date:10/28/2024 08:38:06 AM Interpretation: Performing Lab: Notes/Report: Bilirubin - Occult Blood 3+ Glucose - Ketones - WBC 3+ Nitrite - Ph 6.0 Protein 3+ Specific Linn 1.025 Color dark yellow Appearance cloudy Reason For Referral Reason new onset headaches, vision changes, tremors Diagnosis 1 New onset headache ( R51.9) Diagnosis 2 Vision changes (H53. 9) Diagnosis 3 Tremor (R25.1) Referral Organization Main Referring Provider First Name Lala Referring Provider Last Name Anna Referring Provider Speciality Nurse Yousuf elkins Referred Provider [facility]ACQUELYN [facility] Referred Provider Specialty Neurology General Notes Esmer Stoll 11:14:47 AM >{{TOFIRSTNAME}} This is [facility] following up on an outstanding referral that was ordered by your provider. Please call our office at , so we can _update our records., Kathy Perry 04/21/2024 07:32:40 AM >faxed request for office note Referral Priority Routine Referral Appointment Date 03/27/2024 Medications Medication SIG (Take, Route, Frequency, Duration) Notes Start Date End Date Status Doxycycline Hyclate 100 MG 1 capsule Orally twice a day; Duration: 10 days 11/04/2024 Active Sertraline HCl 100 mg TAKE 1 TABLET BY MOUTH DAILY; Duration: 90 Active amLODIPine Besylate 10 mg TAKE 1 TABLET BY MOUTH DAILY; Duration: 90 Active Levothyroxine Sodium 100 MCG 1 tablet in the morning on an empty stomach Orally Once a day; Duration: 90 days Active Albuterol Sulfate HFA 108 (90 Base) MCG/ACT 1 puff as needed Inhalation every 6 hrs as needed; Duration: 30 days 09/13/2023 Active Sertraline HCl 100 MG TAKE 1 TABLET BY MOUTH DAILY Oral; Duration: 90 Days Active Vitamin E 200 UNIT 2 capsules Orally Once a day Active oxyCODONE-Acetaminoph en 5-325 MG TAKE 2 TABLETS BY MOUTH EVERY 4 HOURS NEEDED FOR 3 DAYS Oral; Duration: 3 Days she only took 2 of them after surgery Not-Taking Lisinopril 40 MG 1 tablet Orally Once a day; Duration: 90 days Active Albuterol Sulfate (2.5 MG/3ML) 0.083% 3 mL Inhalation every 6 hrs as needed; Duration: 30 days 09/05/2023 Active Vitamin B12 1000 MCG 1 tablet Orally Once a day Active Mirabegron ER 25 MG TAKE 1 TABLET BY MOUTH DAILY Oral; Duration: 30 Days as needed Active Sertraline HCl 50 MG 1 tablet Orally Once a day; Duration: 90 days Take with 100 mg to equal 150 mg daily 10/16/2024 Active Social History Tobacco Use: Social History Observation Description Date Details (start date - stop date) Never Smoker NA - NA Sex Assigned At : Social History Observation Description Sex Assigned At Female Household Question Answer Notes Number of adults in household: 2 Number of children in household: 0 Tobacco Use/Smoking Question Answer Notes Tobacco use: nonsmoker patient enter ed data CAGE-AID Questionnaire (2018 Edition) Question Answer Notes Have you ever felt that you ought to cut down on your drinking or drug use? No patient entered data Have people annoyed you by c riticizing your drinking or drug use? No patient entered data Have you ever felt bad or gu ilty about your drinking or drug use? No patient entered data Have you ever had a drink or used drugs first thing in the morning to steady your nerves or to get rid of a hangover? No patient entered data CAGE-AID Score 0 Interpretation Negative PRAPARE Question Answer Notes Date Completed/Updated: 10/16/2024 demarco nt entered data What is your current housing situation? I have housing patient entered data Are you worried about losing your housing? No patient entered data What is the highest level of school that you have finished? 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 Check all that apply Medicine or any health care (medical, dental, mental health or vision) Has lack of transportation k ept you from medical appointments, meetings, work or from getting things needed for daily living? No How often do you see or talk to people that you care about and feel close to? (For example: talking to friends on the phone, visiting friends or family, going to mormonism or club meetings) 1 or 2 times a week patient entered data How stressed are you? Stress is when someone feels tense, nervous, anxious, or can't sleep at night because their mind is troubled Somewhat patient entered data In the past year have you sp ent more than 2 nights in a row in a intermediate, mcc, shelter center, or juvenile correctional facility? No patient entered data Are you a refugee? No patient en tered data What country are you from? [place] claudio emmanuel entered data Do you feel physically and emotionally safe where you currently live? Yes patient entered data In the past year, have you b een afraid of your partner or ex-partner? No patient entered data PRAPARE Score: 5 Problems Problem Type SNOMED Code ICD Code Onset Dates Problem Status W/U Status Risk Notes Problem Hypothyroidism (12473958) Hypothyroidism, unspecified (E03.9) Active confirmed -TSH at 5.3 in 07/2023 -Refilled Levothyroxine 88mcg, ordered labs, f/u in 6 months Problem Mixed hyperlipidemia (702508166) Mixed hyperlipidemia (E78.2) Active confirmed -labs much improved with Zetia in 07/2023, ordered labs, f/u in 6 months Problem Prediabetes (301320182) Prediabetes (R73.03) Active confirmed Problem Body mass index 30.00 to 34.99 (02418460155330 7) Body mass index [BMI] 33.0-33.9, adult (Z68.33) Active confirmed Problem Benign hypertension (42917096) Hypertension, benign (I10) Active confirmed -pt is completely Asx & condition well managed with medication and diet -discussed DASH diet, labs grossly WNLS with Trigs at 234 -CW Amlodipine 10mg, DC Lisinopril for now as BP normal w/o it, as tolerated and effective, f/u in 6 months Problem Mild intermittent asthma (743865017) Mild intermittent asthma without complication (J45.20) Active confirmed Problem Major depressive disorder (783861768) Major depressive disorder (F32.9) Active confirmed -sxs well managed with Zoloft 100 mg now w/o any SE, SI / HI -med refilled, f/u in 6 months Problem Kidney stone (42553667) Kidney stones (N20.0) Active confirmed Problem Menopause (181787028) Vasomotor symptoms due to menopause (N95.1) Active confirmed -CW Paxil 12.5mg as effective and w/o major SE -may refer to [facility] / Endo if no relief in sxs with medication, PVU -f/u in 3 months Problem Epistaxis (357704841) Epistaxis (R04.0) Inactive confirmed Comment:No specific location see; but based on her hx, will ck a CBC to make sure she's not anemic. If it continues, will consider ENT referral., Problem Hypothyroidism (41362220) Hypothyroid (244.9) (244.9) Inactive confirmed Comment:Misha andrew well. SAME regimen, with [facility] Biola thyroid, 90 gr. Follow up in one year., Problem Depression screening (977915322) Screening for depression (Z13.31) Inactive confirmed Description:Dep r ession screening Problem Fatigue (01362393) Fatigue (R53.83) Inactive confirmed Comment:her thyroid is just inside the low end of the normal range. Will increase her thyroid to 120 mg (up from 90), then recheck in 3-4 months. Will also get CBC to make sure she isn't anemic. Also, says she has a past history of Hemochromatosis and was advised to get her iron studies checked. Will get them with the next labs, as per her request., Problem Hypothyroidism (60218370) Hypothyroidism (E03.9) Inactive confirmed Comment:Now under good control, on current doses; continue. ALSO, BP is better, continue limiting the sodium intake., Problem Hypothyroidism (67752563) Hypothyroidism, adult (E03.9) Inactive confirmed Comment:Stable overall, SAME regimen., Problem Labyrinthitis (05684653) Labyrinthitis (H83.09) Inactive confirmed Comment:Likely viral; reassured. _ _Use meclizine as needed; _ _I've recommended a short prednisone taper (since she is allergic to diazepam) _ _and in a few days, if not better. ADD azithromycin for her sinuses for possible associated sinusitis. ., Problem Insomnia (209056224) Cannot sleep (G47.00) Inactive confirmed Comment:Related to stressful life circumstances. Possible depression, but will reevaluate. Discussed ways to help her cope; try OTC sleep aids first.,Descripti on:Insomnia Problem Hypothyroid (21588028) Hypothyroid (E03.9) Inactive confirmed Comment:Elevate d TSH, hadn't been taking her meds. Will recheck after she's be back on them for 6 weeks. Will also get BMP., Problem Elevated blood pressure reading without diagnosis of hypertension (442501792) Elevated blood pressure, situational (R03.0) Inactive confirmed Problem Prescription renewal (621253867) Medication refill (Z76.0) Inactive confirmed Problem Hypothyroidism (00336871) Adult hypothyroidism (E03.9) Inactive confirmed Comment:Hypothy r oidism clinically improving. Still with low T4 and high TSH.. Patient wants to be on Biola Thyroid; will gradually increase from 30 mg to 60 mg over next 2 weeks. Recheck labs 6 weeks after being on 60 mg.,Description: Hypothyroidism Problem Tuberculosis screening (788175693) Screening examination for pulmonary tuberculosis (Z11.1) Inactive confirmed Comment:Results noted to be 0 mm-negative, Problem Eustachian tube dysfunction (16123626) Eustachian tube dysfunction (H69.80) Inactive confirmed Comment:REASSURE D THAT IT WILL LIKELY RESOLVE ON IT'S OWN. SHE CANNOT TAKE NSAIDs, SO WILL PRINT AN RX FOR PREDNISONE, IN CASE SYMPTOMS DON'T SPONTANEOUSLY IMPROVE. TRY TYLENOL, UP TO 3000 MG PER DAY, DIVIDED DOSE. ., Problem Exposure to tuberculosis (6556307975950) Contact with or exposure to tuberculosis (V01.1) (V01.1) Inactive confirmed Vital Signs Heart Rate 61 /min 12/30/2024 Korin Cabrera 12/30/2024 12:56:16 PM EDT > Temperature 97.3 degrees Fahrenheit 12/30/2024 Korin Durant 12/30/2024 12:56:16 PM EDT > Respiratory Rate 18 /min 12/30/2024 Nicanor Cabrear 12/30/2024 12:56:16 PM EDT > Height-cm 160.02 cm 12/30/2024 Korin Cabrera 12/30/2024 12:56:16 PM EDT > Oximetry 98 % 12/30/2024 Korin Cabrera 12/30/2024 12:56:16 PM EDT > Blood pressure diastolic 73 mm Hg 12/30/2024 Korin Love 12/30/2024 12:56:16 PM EDT > Weight-kg 85.73 kg 12/30/2024 Korin Cabrera 12/30/2024 12:56:16 PM EDT > Height 63.00 in 12/30/2024 Korin Cabrera 12/30/2024 12:56:16 PM EDT > Blood pressure systolic 134 mm Hg 12/30/2024 Korin Durant 12/30/2024 12:56:16 PM EDT > Weight 189 lbs 12/30/2024 Korin Cabrera 12/30/2024 12:56:16 PM EDT > BMI 33.48 kg/m2 12/30/2024 Korin Cabrera 12/30/2024 12:56:16 PM EDT > Encounters Encounter Location Date Provider Diagnosis Main [address] [place], [place] [id number] 02/28/2024 Lala Castillo Prediabetes R73.03 ; Hypertension, benign I10 ; Hypothyroidism, unspecified E03.9 ; Mixed hyperlipidemia E78.2 ; Vasomotor symptoms due to menopause N95.1 ; Major depressive disorder F32.9 ; Mild intermittent asthma without complication J45.20 ; New onset headache R51.9 ; Vision changes H53.9 ; Tremor R25.1 ; Obesity, unspecified E66.9 and Body mass index [BMI] 33.0-33.9, adult Z68.33 Main [address] [place], [place] [id number] 06/12/2024 Lala Amberlytz Prediabetes R73.03 ; Hypertension, benign I10 ; Hypothyroidism, unspecified E03.9 ; Mixed hyperlipidemia E78.2 ; Vasomotor symptoms due to menopause N95.1 ; Major depressive disorder F32.9 ; Mild intermittent asthma without complication J45.20 ; Body mass index [BMI] 33.0-33.9, adult Z68.33 and Obesity, class 1 E66.811 Main [address], [place] [id number] 10/16/2024 Lala Castillo Prediabetes R73.03 ; Hypertension, benign I10 ; Hypothyroidism, unspecified E03.9 ; Mixed hyperlipidemia E78.2 ; Vasomotor symptoms due to menopause N95.1 ; Major depressive disorder F32.9 ; Mild intermittent asthma without complication J45.20 ; Body mass index [BMI] 33.0-33.9, adult Z68.33 and Obesity, class 1 E66.[address] [place] [id number] 10/28/2024 Alexandra Osman Dysuria R30.[address] [id number] 11/04/2024 Alexandra Osman Cystitis with hematu mahesh N30.91 [address] [place], [place] [id number] 12/30/2024 Sirena Vernon Bilateral flank pain R10.9 ; Kidney stones N20.0 and Hospital discharge follow-up Z09 Main [address] [place], [place] [id number] 02/07/2024 Erik Hills Main [address] [place], [place] [id number] 05/29/2024 Lalagee Castillo Mixed hyperlipidemia E78.2 [address] [place], [place] [id number] 05/29/2024 Lalagee Castillo Hypertension, benign I10 Main [address] [place], [place] [id number] 05/29/2024 Lalagee Castillo Major depressive disorder F32.9 [address] [place], [place] [id number] 05/29/2024 Lala Anna Hypothyroidism, unspecified E03.[address] [place], [place] [id number] 06/13/2024 Lala Myerholflaca Hypothyroidism, unspecified E03.9 [address] [place], [place] [id number] 09/15/2024 Lalagee Castillo Vasomotor symptoms d ue to menopause N95.1 Main [address] [place], [place] [id number] 10/17/2024 Lala Castillo [address] [place] [address] 10/29/2024 Alexandra Osman Urinary tract infect ion N39.0 [facility] [place] [id number] 10/29/2024 Alexandra Osman [address] [place] [id number] 11/04/2024 Alexandra Osman Cystitis with hematu mahesh N30.91 [address] [place] [id number] 12/01/2024 Lala Castillo [address] [place] [id number] 12/01/2024 Lala Castillo Assessments Encounter Date Diagnosis (ICD Code) Assessment Notes Treatment Notes Treatment Clinical Notes Section Notes 12/30/2024 Bilateral flank pain (ICD-10 - R10.9) 12/30/2024 Kidney stones (ICD-10 - N20.0) 06/13/2024 Hypothyroidism, unspecified (ICD-10 - E03.9) 09/15/2024 Vasomotor symptoms due to menopause (ICD-10 - N95.1) 10/16/2024 Prediabetes (ICD-10 - R73.03) Encouraged healthy diet and exericse. F/u 3 months & PRN 10/28/2024 Dysuria (ICD-10 - R30.0) begin ATB will send urine off for culture call urolgoy to let them know what is going on ensure adequate hydration if worse in anyway, get fever, N/V, chills, go to ER 10/29/2024 Urinary tract infection (ICD-10 - N39.0) 11/04/2024 Cystitis with hematuria (ICD-10 - N30.91) pt is no better with the levoquin called and spoke to urology office- they recommended to start patient on doxycycline keep her urology f.u in 1 week if worse in anyway, go to ER 11/04/2024 Cystitis with hematuria (ICD-10 - N30.91) 02/28/2024 Prediabetes (ICD-10 - R73.03) Encouraged healthy diet and exericse. F/u 3 months & PRN 02/28/2024 Hypertension, benign (ICD-10 - I10) HTN stable. Will continue current medications. Encouraged healthy diet and exercise. F/u 3 months & PRN 05/29/2024 Mixed hyperlipidemia (ICD-10 - E78.2) 05/29/2024 Hypertension, benign (ICD-10 - I10) 05/29/2024 Major depressive disorder (ICD-10 - F32.9) 05/29/2024 Hypothyroidism, unspecified (ICD-10 - E03.9) 06/12/2024 Prediabetes (ICD-10 - R73.03) Encouraged healthy diet and exericse. F/u 3 months & PRN 06/12/2024 Hypertension, benign (ICD-10 - I10) HTN stable. Will continue current medications. Encouraged healthy diet and exercise. F/u 3 months & PRN 06/12/2024 Hypothyroidism, unspecified (ICD-10 - E03.9) Pt is stable on current medications. Will continue current medications. F/u 3 months & PRN 02/28/2024 Hypothyroidism, unspecified (ICD-10 - E03.9) Pt is stable on current medications. Will continue current medications. F/u 3 months & PRN 10/16/2024 Hypertension, benign (ICD-10 - I10) HTN stable. Will continue current medications. Encouraged healthy diet and exercise. F/u 3 months & PRN 12/30/2024 Hospital discharge follow-up (ICD-10 - Z09) Doing better. Advise to keep the f/u appt with Urologist 10/16/2024 Hypothyroidism, unspecified (ICD-10 - E03.9) Pt is stable on current medications. Will continue current medications. F/u 3 months & PRN 06/12/2024 Mixed hyperlipidemia (ICD-10 - E78.2) Pt is stable on current medications. Will continue current medications. F/u 3 months & PRN 02/28/2024 Mixed hyperlipidemia (ICD-10 - E78.2) Pt is stable on current medications. Will continue current medications. F/u 3 months & PRN 10/16/2024 Mixed hyperlipidemia (ICD-10 - E78.2) Pt is stable on current medications. Will continue current medications. F/u 3 months & PRN 02/28/2024 Vasomotor symptoms due to menopause (ICD-10 - N95.1) Will stop paxil to see how pt does without it. F/u 3 months & PRN 06/12/2024 Vasomotor symptoms due to menopause (ICD-10 - N95.1) Will start Paxil to help with symptoms. F/u 3 months & PRN 06/12/2024 Major depressive disorder (ICD-10 - F32.9) Depression stable. Will continue current medications. Advised pt if they are have suicidal or homicidal to call 911 or go to the ER. F/u 3 months & PRN 10/16/2024 Vasomotor symptoms due to menopause (ICD-10 - N95.1) Due to continued symptoms will stop paxil and will start Veozah. F/u 3 months & PRN 02/28/2024 Major depressive disorder (ICD-10 - F32.9) Depression stable. Will continue current medications. Advised pt if they are have suicidal or homicidal to call 911 or go to the ER. F/u 3 months & PRN 02/28/2024 Mild intermittent asthma without complication (ICD-10 - J45.20) Asthma stable. Will continue current medications. F/u 3 months & PRN 06/12/2024 Mild intermittent asthma without complication (ICD-10 - J45.20) Asthma stable. Will continue current medications. F/u 3 months & PRN 10/16/2024 Major depressive disorder (ICD-10 - F32.9) Will increase zolof to help with symptoms. Advised pt if they are have suicidal or homicidal to call 911 or go to the ER. F/u 3 months & PRN 10/16/2024 Mild intermittent asthma without complication (ICD-10 - J45.20) Asthma stable. Will continue current medications. F/u 3 months & PRN 06/12/2024 Body mass index [BMI] 33.0-33.9, adult (ICD-10 - Z68.33) Body Mass Index: Care Instructions material was published 02/28/2024 New onset headache (ICD-10 - R51.9) Will make referral to Neurology for further evaluation of symptoms. 02/28/2024 Vision changes (ICD-10 - H53.9) Will make referral to Neurology for further evaluation of symptoms. 10/16/2024 Body mass index [BMI] 33.0-33.9, adult (ICD-10 - Z68.33) Body Mass Index: Care Instructions material was published 06/12/2024 Obesity, class 1 (ICD-10 - E66.811) 10/16/2024 Obesity, class 1 (ICD-10 - E66.811) 02/28/2024 Tremor (ICD-10 - R25.1) Will make referral to Neurology for further evaluation of symptoms. 02/28/2024 Obesity, unspecified (ICD-10 - E66.9) 02/28/2024 Body mass index [BMI] 33.0-33.9, adult (ICD-10 - Z68.33) 06/12/2024 Other Plan Of Treatment Next Appt Details Provider Name:Lala Vaughn karely, 01/22/2025 08:15:00 AM, [address] [place], [id number], Insurance Providers Payer Name Payer Address Payer Phone Subscriber Number Group Number Insured Name Patient Relationship to Insured Coverage Start Date Coverage End Date [employer] [place] [employer] [address] [place] [address] [id number] Dev Phipps Self - patient is the insured 2 Medicare NGS PPS [address] [place], [place] [id number] Dev Phipps Self - patient is the insured 2 2 Medical (General) History Medical History History ICD Code Asthma Hemocromatosis Hypothyroidism depression anxiety Surgical History Surgery Date(Month/Year) Tubal Ligation hernia repair surgery Left oophorectomy Appendectomy Cholecystectomy kidney stone, stent 03/19/24, 04/23/24, 1 08/06/23 partial nephrectomy december 2024 Hospitalization History Reason Date(Month/Year) see surgical history
--- OUTSIDE RECORDS SUMMARY | 2025-01-15 14:18 | XMS_ITS | Encounter Summary ---
Author Organization [facility] Address [address] [place] [address] Care Team Providers Care Risk Management Specialist Name Role Phone Unavailable Primary Care Provider Unavailabl e Source Comments In the event this information is protected by the Federal Confidentiality of Alcohol and Drug AbusePatient Records regulations: The Federal rules restrict any use of the information to criminally investigate or prosecute any alcohol or drug abuse patient.[facility] Encounter Details Date Type Department Care Team (Late st Contact Info) Description 01/07/2025 Lab Requisition [facility] [address] [place] [address] Liat Walker MD [address] [place] [id number] Person encountering health services to consult on behalf of another person Social History Tobacco Use Types Packs/Day Years Used Date Smoking Tobacco: Never Assessed Comments Unknown Sex and Gender Information Value Date Recorded Sex Assigned at Not on file Legal Sex Female 2:05 PM EST Gender Identity Not on file Sexual Orientation Not on file documented as of this encounter Plan of Treatment Not on file documented as of this encounter Procedures Procedure Name Priority Date/Time Associated Diagnosis Comments SURGICAL PATHOLOGY REFERENCE LAB CONSULT Routine 01/07/2025 9:59 AM EDT Person encountering health services to consult on behalf of another person documented in this encounter Results * SURGICAL PATHOLOGY REFERENCE LAB CONSULT (01/07/2025 9:59 AM EDT) Case Report Surgical Pathology Report Case: [id number] Authorizing Provider: Liat Wlaker MD Collected: 01/07/2025 09:59 AM Ordering Location: [facility] Received: 01/07/2025 09:58 AM [facility] Pathologist: Erich Cruz MD Specimen: Slide(s), 14 SLIDES [id number] 01/08/2025 11:00 AM EDT [facility] FINAL DIAGNOSIS Outside slides for consultation, December 23, 2024 Kidney and ureter, right, nephrectomy: - Chronic interstitial inflammation. - Peripelvic fibrosis, chronic inflammation, and foreign body giant cell reaction. 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 01/08/2025 11:00 AM EDT [facility] at 1100 EDT Diagnosis Comment Thank you for the opportunity to participate in the care of this patient. I agree with your interpretation of this nephrectomy specimen. There appears to be significant peripelvic fibrosis and chronic inflammation, compatible with the history of stricture, low renal function, and hydronephrosis. I note an incidental renal tubular proliferation on slide A10, which is interpreted as most in keeping with a papillary adenoma. Thank you again for the opportunity to review this specimen. 01/08/2025 11:00 AM EDT [facility] Clinical History CONSUT REQUESTED 01/08/2025 11:00 AM EDT [facility] Performing Lab Diagnostic interpretation performed at: [facility], [address] [place] [address], [place] [address] CLIA# [id number] Cupola Liner: Cesar Raymundo MD 01/08/2025 11:00 AM EDT [facility] Disclaimer Laboratory Developed Test (LDT) Disclaimer: Performance characteristics of immunohistochemica l, immunofluorescent, and chromogenic in-situ hybridization tests have been determined by the performing laboratory within [facility]'s [facility]ology and Laboratory Medicine Department ([facility], [facility], [facility], [facility], [facility], [facility], or [facility]) in a manner consistent with CLIA requirements. One or more of these tests may not have been cleared or approved by the FDA. [facility] is regulated under CLIA as qualified to perform high-complexity testing. These tests are used for clinical purposes. These should not be regarded as investigational or for research. Positive and negative controls stain appropriately. 01/08/2025 11:00 AM EDT [facility] Blocks or Slides MICROSCOPE SLIDE / Unknown 01/07/2025 9:59 AM EDT 01/07/2025 9:58 AM EDT us Liat Walker MD SURGICAL PATHOLOGY Final Result [facility] [address] [facility] Desk [address] [address], [place] documented in this encounter Visit Diagnoses Diagnosis Person encountering health services to consult on behalf of another person Other person consulting on behalf of another person documented in this encounter
--- OUTSIDE RECORDS SUMMARY | 2025-01-15 14:18 | XMS_ITS | Encounter Summary ---
Author Organization [facility] Address [address] [place] [address] Care Team Providers Care Prevention Specialist Name Role Phone Unallocated, Noms Provider Primary Care Provi yue Encounter Details Date Type Department Care Team (Late st Contact Info) Description 04/17/2024 External Result Encounter JACQUELYN PROCTOR [address] [place] [phone] Paul Sharp DO [address] [place] [id number] Social History Tobacco Use Types Packs/Day Years Used Date Smoking Tobacco: Never Assessed Comments Unknown Sex and Gender Information Value Date Recorded Sex Assigned at Not on file Legal Sex Female 8:32 PM EDT Gender Identity Not on file Sexual Orientation Not on file documented as of this encounter Plan of Treatment Not on file documented as of this encounter Procedures Procedure Name Priority Date/Time Associated Diagnosis Comments MR BRAIN W AND WO CONTRAST (ROUTINE) 04/17/2024 2:23 PM EDT documented in this encounter Results * MR brain w and wo contrast routine (04/17/2024 2:23 PM EDT) Anatomical Region Laterality Modality Brain Magnetic Resonan ce 04/17/2024 2:23 PM EDT Narrative 04/17/2024 2:22 PM EDT THIS EXAM WAS PERFORMED AT [facility] History: Ataxia Procedure: Standard MR of the brain was initially performed without contrast. Then, after intravenous administration of 16 mL of ProHance gadolinium contrast without reported complication, MR of the brain was obtained with contrast. Findings: There is no prior MR available for comparison. MR of the brain before and after contrast demonstrates that the craniovertebral junction, sella turcica, corpus callosum, third and fourth ventricles, and other midline structures of the brain are unremarkable. There is no significant signal abnormality for age. There is no area of restricted diffusion to suggest an acute infarct. A few small foci of increased FLAIR signal in the supratentorial brain are well within the limits of normal for age. There is no obvious cerebellar abnormalities such as infarct, mass, or pathologic contrast enhancement. There is no pathologic contrast enhancement within the brain. Visualized portions of the paranasal sinuses and orbits are unremarkable. Impression: There is no significant brain abnormality to explain the patient's symptoms. In particular, there is no obvious abnormality in the posterior cranial fossa for age. Finalized by Edil Lizarraga MD on 04/17/2024 2:22 PM Procedure Note Radiology, Radiologist, - 04/17/2024 THIS EXAM WAS PERFORMED AT [facility] History: Ataxia Procedure: Standard MR of the brain was initially performed without contrast. Then,after intravenous administration of 16 mL of ProHance gadolinium contrastwithout reported complication, MR of the brain was obtained withcontrast. Findings: There is no prior MR available for comparison. MR of the brain before and after contrast demonstrates that thecraniovertebral junction, sella turcica, corpus callosum, third and fourthventricles, and other midline structures of the brain are unremarkable.There is no significant signal abnormality for age. There is no area ofrestricted diffusion to suggest an acute infarct. A few small foci of increasedFLAIR signal in the supratentorial brain are well within the limits ofnormal for age. There is no obvious cerebellar abnormalities such asinfarct, mass, or pathologic contrast enhancement. There is no pathologiccontrast enhancement within the brain. Visualized portions of the paranasalsinuses and orbits are unremarkable. Impression: There is no significant brain abnormality to explain the patient'ssymptoms. In particular, there is no obvious abnormality in the posteriorcranial fossa for age. Finalized by Edil Lizarraga MD on 04/17/2024 2:22 PM Paul Sharp DO [facility] MRI PROCEDURES Final Result documented in this encounter Visit Diagnoses Not on filedocumented in this encounter Care Teams Prevention Specialist Relationship Specialty Start Date End Date Unallocated, Noms Provider, [address] [place] [address] PCP - General 12/28/22 documented as of this encounter
--- OUTSIDE RECORDS SUMMARY | 2025-01-15 14:18 | XMS_ITS | Clinical Summary ---
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 Name Role Phone Unavailable Primary Care Provider Unavailabl e Encounters Date Type Department Care Team Description 01/07/2025 Lab Requisition [facility] [address] [place] [address] Liat Walker MD Person encountering health services to consult on behalf of another person from Last 3 Months Social History Tobacco Use Types Packs/Day Years Used Date Smoking Tobacco: Never Assessed Comments Unknown Sex and Gender Information Value Date Recorded Sex Assigned at Not on file Legal Sex Female 2:05 PM EST Gender Identity Not on file Sexual Orientation Not on file Plan of Treatment Not on file Procedures Procedure Name Priority Date/Time Associated Diagnosis Comments SURGICAL PATHOLOGY REFERENCE LAB CONSULT Routine 01/07/2025 9:59 AM EDT Person encountering health services to consult on behalf of another person from Last 3 Months Results * SURGICAL PATHOLOGY REFERENCE LAB CONSULT (01/07/2025 9:59 AM EDT) Case Report Surgical Pathology Report Case: [id number] Authorizing Provider: Liat Walker MD Collected: 01/07/2025 09:59 AM Ordering Location: [facility] Received: 01/07/2025 09:58 AM [facility] Pathologist: Erich Cruz MD Specimen: Slide(s), 14 SLIDES [id number] 01/08/2025 11:00 AM EDT [facility] FINAL DIAGNOSIS Outside slides for consultation, December 23, 2024 Kidney and ureter, right, nephrectomy: - Chronic interstitial inflammation. - Peripelvic fibrosis, chronic inflammation, and foreign body giant cell reaction. 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 01/08/2025 11:00 AM EDT [facility] at 1100 EDT Diagnosis Comment Thank [...] review this specimen. 01/08/2025 11:00 AM EDT [facility] Clinical History CONSUT REQUESTED 01/08/2025 11:00 AM EDT [facility] Performing Lab Diagnostic interpretation performed at: [facility], [address] [place] [address] CLIA# [id number] Cq Developer: Cesar Raymundo MD 01/08/2025 11:00 AM EDT [facility] Disclaimer Laboratory Developed Test (LDT) Disclaimer: Performance characteristics of immunohistochemica l, immunofluorescent, and chromogenic in-situ hybridization tests have been determined by the performing laboratory within [facility]'s [facility] Department ([facility], [facility], [facility], [facility], [facility], [facility], or [facility]) in a manner consistent with CLIA requirements. One or more of these tests may not have been cleared or approved by the FDA. [facility] is regulated under CLIA as qualified to perform high-complexity testing. These tests are used for clinical purposes. These should not be regarded as investigational or for research. Positive and negative controls stain appropriately. 01/08/2025 11:00 AM EDT [facility] Blocks or Slides MICROSCOPE SLIDE / Unknown 01/07/2025 9:59 AM EDT 01/07/2025 9:58 AM EDT us Liat Walker MD SURGICAL PATHOLOGY Final Result [facility] [address] [place] [address], [place] from Last 3 Months Insurance BLUE CARD PPO OOS
--- OUTSIDE RECORDS SUMMARY | 2025-01-15 14:18 | XMS_ITS | Clinical Summary ---
Author Organization [facility] Address [id number] [address] [place] [address] Care Team Providers Care Fish Worm Grower Name Role Phone Erik Hills PA-C Primary Care Provider [phone] Allergies Active Allergy Reactions Criticality Noted Date Comments Iodinated Contrast Media 04/17/2024 Penicillins 04/17/2024 Diazepam 04/17/2024 Social History Tobacco Use Types Packs/Day Years Used Date Smoking Tobacco: Never Assessed Comments Unknown Sex and Gender Information Value Date Recorded Sex Assigned at Not on file Legal Sex Female 5:30 AM EDT Gender Identity Not on file Sexual Orientation Not on file Last Filed Vital Signs Vital Sign Reading Time Taken Comments Blood Pressure - - Pulse - - Temperature - - Respiratory Rate - - Oxygen Saturation - - Inhaled Oxygen Concentration - - Weight 83.5 kg (184 lb) 04/17/2024 12:55 PM EDT Height - - Body Mass Index - - Plan of Treatment Health Maintenance Due Date Last Done Comments Depression Screening 1969 Tobacco Screening 1969 Adult BMI Screening 1975 DTaP,Tdap and Td Vaccines (1 - Tdap) 1976 Zoster (Shingles) Vaccine (1 of 2) 2007 Fall Risk Screening 2022 Influenza Vaccine 02/16/2025 Medical Devices Not on file Insurance [employer] Member Subscriber Plan / Payer (Ef fective 2023-Present) Name:Jim Phipps Relation to Subscriber:Spouse Name:Harrison Phipps Date of :1961 (Home) Address: [address] [place] [id number] Payer ID:[id number] (NAIC) Type:Not on file Address: [address] [place] [id number] Care Teams Fish Worm Grower Relationship Specialty Start Date End Date Erik Hills PA-C PCP - General Physician Carbonation Equipment Operator 08/28/23
--- OUTSIDE RECORDS SUMMARY | 2025-01-15 14:18 | XMS_ITS | Clinical Summary ---
Author Organization [facility] Address [address] [place] [address] Care Team Providers Care Equipment Washer Name Role Phone Unallocated, Noms Provider Primary Care Provi yue Allergies Active Allergy Reactions Criticality Noted Date Comments Ibuprofen Other 03/27/2024 Iodine Hives 03/27/2024 Penicillins Rash Low 03/27/2024 Diazepam Other 03/27/2024 Medications amLODIPine (Norvasc) 10 MG tablet Take 10 mg by mouth Daily Active ezetimibe (Zetia) 10 MG tablet Take 10 mg by mouth Daily Active sertraline (Zoloft) 100 MG tablet Take 100 mg by mouth Active levothyroxine (Tirosint) 88 MCG capsule Take by mouth Daily before meals Active albuterol HFA 90 mcg/act inhaler Inhale 2 puffs every 4 (four) hours if needed for wheezing Active Social History Tobacco Use Types Packs/Day Years Used Date Smoking Tobacco: Never Assessed Comments Unknown Sex and Gender Information Value Date Recorded Sex Assigned at Not on file Legal Sex Female 8:32 PM EDT Gender Identity Not on file Sexual Orientation Not on file Last Filed Vital Signs Vital Sign Reading Time Taken Comments Blood Pressure 150/89 03/27/2024 2:28 PM EDT Pulse 71 03/27/2024 2:28 PM EDT Temperature - - Respiratory Rate - - Oxygen Saturation 94% 03/27/2024 2:28 PM EDT Inhaled Oxygen Concentration - - Weight 86.2 kg (190 lb) 03/27/2024 2:28 PM EDT Height 157.5 cm (5' 2 ) 03/27/2024 2:28 PM EDT Body Mass Index 34.75 03/27/2024 2:28 PM EDT Plan of Treatment Health Maintenance Due Date Last Done Comments CT Colonography 1957 Colonoscopy 1957 Colorectal Cancer Screening 1957 FIT-DNA 1957 FIT 1957 FOBT 1957 Sigmoidoscopy 1957 Pneumococcal Vaccine: 65+ Years (1 of 2 - PCV) 976 Mammogram 1997 Medicare Annual Wellness (AWV) 09/22/2023 09/21/2022 Influenza Vaccine (#1) 2025 Cervical Cancer Screening Discontinued HPV/Cotest Discontinued 09/13/2022 Pap Smear Discontinued Insurance [facility] Member Subscriber Plan / Payer (Ef fective 2023-Present) Name:Moise Jim Relation to Subscriber:Spouse Name:KODI BACON Date of :1961 Address: [address] [place] [address] Payer ID:Not on file Type:Not on file Address: [place] [phone] [employer] MED[employer]AGE Care Teams Equipment Washer Relationship Specialty Start Date End Date Unallocated, Noms Provider, [address] [place] [address] PCP - General 12/28/22
[2025-01-15 15:18] LABS: Anion Gap 11.3; Blood Urea Nitrogen 23.0 mg/dL (7.0-18.0); Calcium 8.8 mg/dL (8.5-10.1); Carbon Dioxide 26.1 mmol/L (21.0-32.0); Chloride 105 mmol/L (98-107); Estimated GFR (African America >60 (>=60 mL/min/1.73m^2); Estimated GFR (Non-African Ame 52 (>=60 mL/min/1.73m^2); Glucose 175 mg/dL (74-106); Potassium 3.4 mmol/L (3.5-5.1); Sodium 139 mmol/L (136-145)
== END 2025-01-15 14:15 | disposition home or self-care (01) ==
LOC: LAB 14:14
PROVIDERS: PCP Nurse Practitioner Family; Visit Provider Urology
DX: N13.5 Crossing vessel and stricture of ureter without hydronephrosis (principal); N13.30 Unspecified hydronephrosis; N20.0 Calculus of kidney; N36.2 Urethral caruncle; Z87.440 Personal history of urinary (tract) infections; N93.9 Abnormal uterine and vaginal bleeding, unspecified
CPT/HCPCS: 36415; 80048